=== PATIENT | female | born 1985 | race Caucasian/White ===

== ENCOUNTER 2019-12-03 12:37 | Observation (INO) | payer OTHER, SELFPAY ==
--- NOTE | ~2019-12-03 | CT_ITS ---
EXAMINATION: CT abdomen pelvis w con EXAM DATE: 12/03/2019 16:16 INDICATION: Diffuse abdominal pain. Elevated white blood cell count. TECHNIQUE: Spiral CT of the abdomen and pelvis was performed following intravenous injection of 100 m L Omnipaque 350. Axial, coronal and sagittal images were reviewed. The dose-length product (DLP) fo r this examination was 325.29 mGy-cm. The exposure was tailored according to patient size (auto mA e xposure control), and iterative reconstruction (ASIR) was used as additional dose reduction technique . Comparison is made to prior examination from 07/27/2019. FINDINGS: There is hepatic steatosis without suspicious focal lesion identified. Spleen, adrenal glan ds, pancreas are unremarkable. Gallbladder is unremarkable. No biliary obstruction. Portal and spl enic veins are patent. Kidneys enhance symmetrically. There is no hydronephrosis. The uterus is n ot identified and has likely been surgically resected. The bladder is unremarkable. There is no ret roperitoneal or pelvic lymphadenopathy. The appendix is normal. The stomach and small bowel are unremarkable. There is expected amount of c olonic stool. No free intraperitoneal gas. The heart is normal in size. There are no pericardial or pleural effusions. The lung bases are unremarkable. The bones are unremarkable. IMPRESSION: 1. No acute intra-abdominal findings. Reviewed, dictated and finalized at location A. AR INSTRUCTOR
--- NOTE | ~2019-12-03 | XR_ITS ---
EXAMINATION: XR chest 2V EXAM DATE: 12/03/2019 13:33 INDICATION: Weakness. TECHNIQUE: Frontal and lateral projections of the chest obtained and reviewed. Comparison is made to prior examination from 08/24/2019. FINDINGS: The lungs are clear. There are no pleural effusions. The cardiomediastinal silhouette is within normal limits. There is no pneumothorax suspected. The bones and soft tissues are unremarkab le. IMPRESSION: No acute cardiopulmonary findings. Reviewed, dictated and finalized at location A. CE MACHINE MECHANIC
[2019-12-03 12:50] VITALS: BP 118/89; PULSE 100; RESP 18; TEMP 36.7; O2SAT 97
[2019-12-03 12:53] LABS: Glucose Point of Care > 500 (65-105)
[2019-12-03 12:53] LABS: Glucose Point of Care > 500 (65-105)
--- NOTE | 2019-12-03 13:09 | ED.RECABL ---
HPI - Recheck/Abnormal Lab/Rx General Chief Complaint: Recheck/Abnormal Lab/Rx Stated Complaint: my sugar is high Time Seen by Provider: 12/03/19 12:47 Source: patient and RN notes reviewed Mode of arrival: ambulatory Limitations: no limitations History of Present Illness HPI narrative: Pt is a 34 y/o female presenting to the ED c/o high BS. Pt reports he BS this morning was over 600 after checking it 3 different times. Pt states she is a Type I Diabetic and uses an Insulin pump to which she believes is working appropriately. Pt states her BS was fine yesterday, and states she sees DINING HOST Sunni Barlow at [facility] for her Diabetes management. Pt reports N/V, diffuse ABD pain, and back pain, but denies diarrhea, fever, ST, cough, or congestion. Pt states she has a Hx of sleep walking and eating things while asleep and possibly attributes that to her Sx's. Pt notes she fractures her lt foot a few weeks ago. Pt notes she has a Hx of Hysterectomy due to Endometriosis and Fibroids. Description of abnormal result: BS over 600 Associated symptoms: nausea, abdominal pain (Diffuse) and other (Vomiting; back pain) Treatments prior to arrival: other (Insulin pump) Related Data Home Medications Medication Instructions Recorded Confirmed buspirone 30 mg PO TID 08/25/19 12/03/19 estradiol 2 mg PO DAILY 08/25/19 12/03/19 fluvoxamine 300 mg PO HS 08/25/19 12/03/19 hydroxyzine HCl 50 mg PO TID PRN 08/25/19 12/03/19 quetiapine 300 mg PO HS 08/25/19 12/03/19 ibuprofen 800 mg PO TID PRN 12/03/19 12/03/19 lidocaine [Lidoderm] 1 patch TRANSDERMAL DAILY 12/03/19 12/03/19 lorazepam [Ativan] 0.5 mg PO TID PRN 12/03/19 12/03/19 Allergies Allergy/AdvReac Type Severity Reaction Status Date / Time adhesive tape Allergy Mild Rash Verified 11/20/19 09:12 Review of Systems Review of Systems: All systems reviewed & are unremarkable except as noted in HPI and below Constitutional: Constitutional: Denies fever(s) ENT: Denies nasal congestion and Denies sore throat Respiratory: Respiratory: Denies cough Gastrointestinal: Gastrointestinal: Reports abdominal pain (Diffuse), Denies diarrhea, Reports nausea and Reports vomiting Musculoskeletal: Musculoskeletal: Reports back pain PMFSH Past Medical History Medical History (Updated 12/03/19 @ 22:15 by Roxanne Prasad MD) Anemia Sees Dr. 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 Fibromyalgia Gastroesophageal reflux disease IBS (irritable bowel syndrome) Insulin dependent diabetes mellitus Left foot drop MRSA (methicillin resistant staph aureus) culture positive OCD (obsessive compulsive disorder) Osteoporosis Peripheral neuropathy Retinopathy Substance abuse Marijuana use daily Toenail fungus Left great toenail removed in some removed around the right toe nail great toe and 5th 1 on right foot Surgical History Surgical History (Updated 12/03/19 @ 20:54 by Fabi Christensen NP) H/O hysterectomy with oophorectomy H/O tubal ligation History of carpal tunnel release Right hand with ganglion cyst removal. Family History Family History (Updated 12/03/19 @ 20:58 by Fabi Christensen NP) Mother Family history of chronic obstructive pulmonary disease Atrial tachycardia Father Acute myocardial infarction Grandparent Bone cancer Other Cerebrovascular accident Diabetes mellitus Family history of arthritis Family history of coronary artery disease Family history of malignant neoplasm Family history of malignant neoplasm of breast Social History Social History (Updated 12/03/19 @ 20:59 by Fabi Christensen NP) Smoking packs per day: 1 Smoking cigarettes per day: 20.0 Years smoked: 15 Smoking pack-years: 15.00 Smoking status: Current every day smoker Tobacco type: cigarettes Second hand tobacco smoke exposure: Yes Additional smoking assessment comments: She has smoked a pack a cigarettes a day for 25 years Alcohol in
[2019-12-03 13:12] LABS: Basophils Absolute Auto 0.1 K/mm3 (0.0-0.1); Basophils Percent Auto 0.6 % (0.2-1.2); Eosinophils Absolute Auto 0.1 K/mm3 (0-0.3); Eosinophils Percent Auto 0.4 % (0-4.4); Hematocrit 39.4 % (37.0-47.0); Hemoglobin 13.6 g/dL (12.0-15.0); Immature Granulocyte Absolute 0.05 K/mm3 (0.00-0.031); Immature Granulocyte Percent A 0.4 % (0-0.5); Lymphocytes Absolute Auto 1.06 K/mm3 (0.9-3.2); Lymphocytes Percent Auto 7.6 % (18.3-44.2); Mean Corpuscular HGB Conc 34.5 g/dl (32-36); Mean Corpuscular Hemoglobin 29.5 pg (26-34); Mean Corpuscular Volume 85.5 fl (80-100); Mean Platelet Volume 11.2 fl (7.4-10.4); Monocytes Absolute Auto 0.6 K/mm3 (0.1-0.6); Monocytes Percent Auto 4.4 % (2.6-8.5); Neutrophils Absolute Auto 12.1 K/mm3 (1.3-6.7); Neutrophils Percent Auto 86.6 % (45.5-73.1); Platelet Count Result 165 k/mm3 (150-375); Red Blood Count 4.61 M/mm3 (4.2-5.4); Red Cell Distribution Width 12.3 % (11.5-14.5)
[2019-12-03] MEDS: ONDANSETRON INJ 4 MG/2 ML VIAL IV PUSH (13:21)
[2019-12-03] MEDS: LACTATED RINGERS 1,000 ML 999 ML IV CONT (13:21)
[2019-12-03 13:26] LABS: Alanine Aminotransferase 20 U/L (4-35); Albumin Level 4.4 g/dL (3.5-5.1); Alkaline Phosphatase 155 U/L (38-126); Aspartate Amino Transferase 26 U/L (14-36); Bilirubin,Total 0.8 mg/dL (0.2-1.3); Blood Urea Nitrogen 21 mg/dL (7-17); Calcium 9.6 mg/dL (8.4-10.2); Carbon Dioxide 19 mmol/L (22-30); Chloride 86 mmol/L (98-107); Estimated CRCL calculation 69 ml/min; Estimated Glomerular Filt Rate > 60; Magnesium 1.8 mg/dL (1.6-2.3); Phosphorus 4.5 mg/dL (2.5-4.5); Potassium 4.3 mmol/L (3.4-5.0); Sodium 128 mmol/L (137-145)
[2019-12-03 13:27] LABS: Beta-Hydroxybutyrate/Acetoacetate 2.28 mmol/L (0.02-0.27); Lipase 36 U/L (23-300)
[2019-12-03 13:30] LABS: Glucose 713 mg/dL (65-105)
[2019-12-03 14:02] LABS: Add Urine Microscopic? YES; Appearance Urine Clear (Clear); Bilirubin Urine Negative (Negative); Blood Urine Negative (Negative); Budding Yeast Urine Present /hpf; Color Urine Straw (Yellow); Glucose Urine UA 3+ mg/dL (Negative); Ketones Urine 1+ mg/dL (Negative); Leukocyte Esterase Ur Negative LEU/UL (Negative); Nitrate Urine Negative (Negative); Protein Urine Negative (Negative); RBC Urine 0-2 /hpf (0-2); Specific Grav Ur 1.028 (1.001-1.035); Squamous Epithelial Cell Urine Moderate /hpf (Few); Urobilinogen Urine Negative mg/dL (<2.0); WBC Urine 0-3 /hpf
[2019-12-03 14:59] LABS: Alveolar/Arterial O2 Gradient 30.6 mmHg; Base Excess ABG -7.9 mEq/l (+/-2.0); Fractional Inspired Oxygen 21 %; HCO3 ABG 16.6 mEq/l (22.0-26.0); Oxygen Content ABG 17.2 %vol (16.0-22.0); Oxygen Saturation ABG 95.6 % (95.0-100.0); Oxyhemoglobin 91.2 % THb (90.0-100.0); PCO2 ABG 31.3 mmHg (35.0-45.0); PO2 ABG 81.7 mmHg (80.0-100.0); PO2 FiO2 Ratio Arterial Blood 3.89 %; Total Hemoglobin 13.4 g/dL (12.0-18.0); pH ABG 7.343 (7.350-7.450)
[2019-12-03 15:00] LABS: Device ROOM AIR; Modified Allen's Test Pass; Site Drawn RIGHT RADIAL
--- NOTE | 2019-12-03 15:00 | PC.NURSE ---
Pt disconnected and took off her own insulin pump
[2019-12-03 15:10] LABS: Hemoglobin A1C 12.4 % (<5.7)
[2019-12-03] MEDS: SODIUM CHLORIDE 0.9% IV 1,000 ML 150 ML IV CONT (15:10)
[2019-12-03] MEDS: INSULIN HUMAN REGULAR (*BKC) 100 UNITS/ML 7 UNITS IV PUSH (15:10)
[2019-12-03] MEDS: INSULIN HUMAN REGULAR (*BKC) 100 UNITS in SODIUM CHLORIDE 0.9% IV 99 ML 13 UNITS IV CONT (15:15)
[2019-12-03 15:41] LABS: Blood Urea Nitrogen 21 mg/dL (7-17); Calcium 9.5 mg/dL (8.4-10.2); Carbon Dioxide 20 mmol/L (22-30); Chloride 91 mmol/L (98-107); Estimated CRCL calculation 76 ml/min; Estimated Glomerular Filt Rate > 60; Potassium 4.7 mmol/L (3.4-5.0); Sodium 129 mmol/L (137-145)
[2019-12-03 15:43] LABS: Glucose 605 mg/dL (65-105)
[2019-12-03 16:30] VITALS: BP 112/71; PULSE 93; RESP 22; O2SAT 99
[2019-12-03 16:33] LABS: Glucose Point of Care 429 (65-105)
[2019-12-03 17:17] VITALS: BP 108/64; PULSE 94; RESP 20; O2SAT 97
[2019-12-03 17:19] LABS: Glucose Point of Care 276 (65-105)
[2019-12-03 18:02] LABS: Glucose Point of Care 232 (65-105)
--- NOTE | 2019-12-03 18:43 | PC.NURSE ---
This patient, Sole Grullon, was admitted to Intensive Care Unit-5. Patient/family oriented to hospital policies and general routines including ID bracelet, bed and alarms, visiting hours, pain management, procedures, bathroom and other care routines, personal items, smoking policy, room service/diet, and visiting hours. Valuables list has been completed. Information on how to activate the Rapid Response Team has been discussed. Patient/Family are encouraged to report perceived risks to care and to ask questions if they do not understand what they are told or what they should do.
[2019-12-03] MEDS: KCL 20 MEQ/D5/0.45% SOD CHL 1,000 ML 150 ML IV CONT (18:48)
[2019-12-03 18:53] VITALS: BMI 23.6
[2019-12-03 19:10] LABS: Glucose Point of Care 175 (65-105)
[2019-12-03 20:00] VITALS: BP 104/62; PULSE 88; RESP 16; TEMP 36.7; O2SAT 98
[2019-12-03 20:02] LABS: Blood Urea Nitrogen 20 mg/dL (7-17); Calcium 9.2 mg/dL (8.4-10.2); Carbon Dioxide 25 mmol/L (22-30); Chloride 96 mmol/L (98-107); Estimated CRCL calculation 96 ml/min; Estimated Glomerular Filt Rate > 60; Glucose 167 mg/dL (65-105); Potassium 3.7 mmol/L (3.4-5.0); Sodium 133 mmol/L (137-145)
[2019-12-03 20:07] LABS: Glucose Point of Care 164 (65-105)
[2019-12-03] MEDS: NICOTINE (*PBKC) 21 MG PATCH 1 PATCH TRANSDERM (20:21)
[2019-12-03] MEDS: KETOROLAC 15 MG/ML VIAL (*BKC) IV PUSH (20:22)
--- NOTE | 2019-12-03 20:43 | PM.IMHP ---
H&P: HPI History of Present Illness Chief complaint: DKA Narrative: Sole Grullon is a 34 year old female who presented to the ED today with complaints of an elevated blood glucose and nausea and vomiting since 0200 this am. Patient tried taking home PO Zofran with no resolution of her nausea and vomiting. She reports that her blood glucose has been elevated compared to her normal readings for approximately 3 months. She reports that her last HgA1C was 12. She reports that she is concerned that her insulin pump may be one of the pumps recalled and that maybe it hasn't been working correctly, but she has not had time to check to see if her pump has been recalled. She also reports that she is uncertain if her port site for this week was completely opened in regard to reasons her sugar is elevated at present. The patient's insulin pump is now off and she was started on insulin drip in the emergency room per DKA protocol. Her last admission was August of 2019 for DKA. She was diagnosed with diabetes at the age of 14. She sees an point of care specialist. Her anion gap was 23 upon arrival to the emergency room. Blood sugar was noted to be 713. It is down to 167. Patient is complaining of feeling hungry but also having some lower abdominal pain as well. However her blood pressure is too low to give her any narcotics at this time. Date of service 12/03/2019 Review of Systems Constitutional: Constitutional: Reports as per HPI and Reports body ache(s) Eyes: Eyes: Reports as per HPI and Reports blurry vision (She reports that she has retinopathy to her eyes, chronic) ENT: Reports Normal hearing present Cardiovascular: Cardiovascular: Reports chest pain (Reports this is not a new finding. Occurs with anxiety and vomiting.) Respiratory: Respiratory: Reports as per HPI and Reports no additional respiratory complaints Gastrointestinal: Gastrointestinal: Reports nausea and Reports vomiting Genitourinary: Genitourinary: Reports nocturia (Reports this is chronic related to her diabetes.) Musculoskeletal: Musculoskeletal: Reports muscle cramps (to right leg) Integumentary/Breasts: Skin/Breast: Reports as per HPI Neurologic: Reports as per HPI Psychiatric: Psychiatric: Reports anxiety and Reports depression Comments: Reports she also has obsessive compulsive disorder. Hematologic/Lymphatic: Hematologic/Lymphatic: Reports easy bleeding and Reports easy bruising Comments: Reports chronic anemia for which she sees park worker. Allergic/Immunologic: Allergic/Immunologic: Reports no additional allergic/immunologic complaints PMFSH Past Medical History Medical History (Updated 12/03/19 @ 21:23 by Fabi Christensen NP) Anemia Sees Dr. 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 Fibromyalgia Gastroesophageal reflux disease IBS (irritable bowel syndrome) Insulin dependent diabetes mellitus Left foot drop MRSA (methicillin resistant staph aureus) culture positive OCD (obsessive compulsive disorder) Osteoporosis Peripheral neuropathy Retinopathy Substance abuse Marijuana use daily Toenail fungus Left great toenail removed in some removed around the right toe nail great toe and 5th 1 on right foot Surgical History Surgical History (Updated 12/03/19 @ 20:54 by Fabi Christensen NP) H/O hysterectomy with oophorectomy H/O tubal ligation History of carpal tunnel release Right hand with ganglion cyst removal. Family History Family History (Updated 12/03/19 @ 20:58 by Fabi Christensen NP) Mother Family history of chronic obstructive pulmonary disease Atrial tachycardia Father Acute myocardial infarction Grandparent Bone cancer Other Cerebrovascular accident Diabetes mellitus Family history of arthritis Family history of coronary artery disease Family history of malignant neoplasm Family history of malignant neoplasm of breast Social History Social History
[2019-12-03 21:21] LABS: Glucose Point of Care 122 (65-105)
[2019-12-03 22:00] VITALS: BP 93/60; BP 93/64; PULSE 80; PULSE 82; RESP 14; RESP 16; O2SAT 100; O2SAT 98
[2019-12-03] MEDS: estradioL 1 MG TABLET 2 MG PO ×2 (22:19)
[2019-12-03] MEDS: LORAZEPAM 0.5 MG TABLET PO (22:20)
[2019-12-03] MEDS: QUEtiapine FUMARATE 100 MG TABLET 300 MG PO (22:20)
[2019-12-03] MEDS: INSULIN GLARGINE (*BKC) 100 UNITS/ML 10 UNITS SUB-Q (22:22)
[2019-12-03 22:29] LABS: Glucose Point of Care 103 (65-105)
[2019-12-03 23:35] LABS: Glucose Point of Care 147 (65-105)
[2019-12-04] VITALS (9 sets, daily range): BP systolic 86–124; BP diastolic 54–74; PULSE 66–95; RESP 14–19; TEMP 36.4–36.6; O2SAT 98–100
[2019-12-04 04:36] LABS: Basophils Absolute Auto 0.1 K/mm3 (0.0-0.1); Basophils Percent Auto 0.7 % (0.2-1.2); Eosinophils Absolute Auto 0.5 K/mm3 (0-0.3); Eosinophils Percent Auto 4.9 % (0-4.4); Hematocrit 36.2 % (37.0-47.0); Hemoglobin 12.4 g/dL (12.0-15.0); Immature Granulocyte Absolute 0.02 K/mm3 (0.00-0.031); Immature Granulocyte Percent A 0.2 % (0-0.5); Lymphocytes Percent Auto 27.8 % (18.3-44.2); Mean Corpuscular HGB Conc 34.3 g/dl (32-36); Mean Corpuscular Hemoglobin 29.2 pg (26-34); Mean Corpuscular Volume 85.2 fl (80-100); Mean Platelet Volume 10.1 fl (7.4-10.4); Monocytes Absolute Auto 0.7 K/mm3 (0.1-0.6); Monocytes Percent Auto 6.6 % (2.6-8.5); Neutrophils Absolute Auto 6.2 K/mm3 (1.3-6.7); Neutrophils Percent Auto 59.8 % (45.5-73.1); Platelet Count Result 167 k/mm3 (150-375); Red Blood Count 4.25 M/mm3 (4.2-5.4); Red Cell Distribution Width 12.2 % (11.5-14.5); White Blood Count 10.4 K/mm3 (4.5-10.0)
[2019-12-04 04:59] LABS: Blood Urea Nitrogen 18 mg/dL (7-17); Calcium 8.5 mg/dL (8.4-10.2); Carbon Dioxide 24 mmol/L (22-30); Chloride 100 mmol/L (98-107); Estimated CRCL calculation 85 ml/min; Estimated Glomerular Filt Rate > 60; Glucose 291 mg/dL (65-105); Potassium 4.3 mmol/L (3.4-5.0); Sodium 133 mmol/L (137-145)
[2019-12-04 05:03] LABS: Magnesium 1.8 mg/dL (1.6-2.3)
[2019-12-04 07:51] LABS: Hemoglobin A1C 12.2 % (<5.7)
[2019-12-04] MEDS: SODIUM CHLORIDE 0.9% IV 1,000 ML 999 ML IV CONT (08:06)
[2019-12-04 08:19] LABS: Glucose Point of Care 364 (65-105)
[2019-12-04] MEDS: INSULIN ASPART (*BKC) 100 UNITS/ML SUB-Q ×3 (08:26→17:26)
[2019-12-04] MEDS: INSULIN GLARGINE (*BKC) 100 UNITS/ML 10 UNITS SUB-Q (08:26)
[2019-12-04] MEDS: PANTOPRAZOLE SODIUM IV 40 MG VIAL IV PUSH (08:27)
[2019-12-04] MEDS: NICOTINE (*PBKC) 21 MG PATCH 1 PATCH TRANSDERM (08:27)
[2019-12-04] MEDS: busPIRone HCL 10 MG TABLET 30 MG PO ×3 (08:27→17:26)
[2019-12-04] MEDS: LIDOCAINE 5% PATCH 1 PATCH TRANSDERM (08:28)
--- NOTE | 2019-12-04 11:46 | PM.IMPN ---
Progress Note: A&P Assessment and Plan (1) Diabetes type 1, uncontrolled: Qualifiers: Glycemic state: with hyperglycemia Qualified Code(s): E10.65 - Type 1 diabetes mellitus with hyperglycemia Code(s): E10.65 - Type 1 diabetes mellitus with hyperglycemia Status: Acute Assessment and Plan: To medical floor on basal and bolus insulin pt to call her putty and caulking supervisor in [place], [place], re: insulin pump (2) DKA (diabetic ketoacidoses): Qualifiers: Diabetes mellitus complication detail: without coma Diabetes mellitus type: type 1 Qualified Code(s): E10.10 - Type 1 diabetes mellitus with ketoacidosis without coma Code(s): E11.10 - Type 2 diabetes mellitus with ketoacidosis without coma Status: Acute Assessment and Plan: resolved (3) Anemia: Qualifiers: Anemia type: iron deficiency Iron deficiency anemia type: unspecified iron deficiency Qualified Code(s): D50.9 - Iron deficiency anemia, unspecified Code(s): D64.9 - Anemia, unspecified Status: Chronic Assessment and Plan: continue per heme recommendations (4) OCD (obsessive compulsive disorder): Qualifiers: Obsessive-compulsive disorder type: unspecified Qualified Code(s): F42.9 - Obsessive-compulsive disorder, unspecified Code(s): F42.9 - Obsessive-compulsive disorder, unspecified Status: Chronic Assessment and Plan: Continue fluvoxamine as ordered. (5) Depression: Qualifiers: Depression Type: unspecified Qualified Code(s): F32.9 - Major depressive disorder, single episode, unspecified Code(s): F32.9 - Major depressive disorder, single episode, unspecified Status: Chronic Assessment and Plan: Continue with buspirone and quetiapine and ativan as ordered. (6) Fibromyalgia: Code(s): M79.7 - Fibromyalgia Status: Chronic Assessment and Plan: Continue with buspirone as ordered. (7) Retinopathy: Code(s): H35.00 - Unspecified background retinopathy Status: Chronic Assessment and Plan: Patient follows with ophth (8) Peripheral neuropathy: Qualifiers: Peripheral neuropathy type: polyneuropathy, unspecified Qualified Code(s): G62.9 - Polyneuropathy, unspecified Code(s): G62.9 - Polyneuropathy, unspecified Status: Chronic Assessment and Plan: recommended AFO to avoid injury Subjective Date/time seen: 12/04/19 11:46 Interval history: Admitted 12/03 with DKA and hx poor DM1 control. Insulin pump is on recall. Admits to somnambulation. Still smokes both cigarettes and marijuana. Minimal upper abdominal discomfort and back discomfort today. Review of Systems Review of Systems: All systems reviewed & are unremarkable except as noted in HPI and below Exam Narrative: Exam Narrative: HEENT: EOMI, PERRL, pharyngeal mucosa pink and intact NECK: No JVD CHEST: Clear to auscultation. Normal effort. HEART: NL S1/S2, regular, no murmur ABDOMEN: BS+, soft, nontender, no mass, no bruits EXTREMITIES: No cyanosis, edema, or clubbing NEUROLOGIC: CN intact and symmetric to inspection. MUSCULOSKELETAL: Tone and strength symmetric. LEFT FOOT DROP. PSYCH: Alert. Oriented to person, place, and time. Objective Data Vital Signs Vital Signs: Vital Signs - 24 hr 12/03/19 12:50 12/03/19 16:30 12/03/19 17:17 Temperature 98.0 F Pulse Rate 100 93 94 Respiratory Rate 18 22 H 20 Blood Pressure 118/89 112/71 108/64 Pulse Oximetry 97 99 97 12/03/19 20:00 12/03/19 22:00 12/04/19 00:00 Temperature 98.0 F 97.8 F Pulse Rate 88 80 86 Respiratory Rate 16 14 16 Blood Pressure 104/62 93/64 L 98/64 L Pulse Oximetry 98 100 98 12/04/19 02:00 12/04/19 04:00 12/04/19 06:00 Temperature 97.5 F L Pulse Rate 84 84 84 Respiratory Rate 16 18 18 Blood Pressure 98/69 L 103/67 86/54 L Pulse Oximetry 98 98 12/04/19 08:00 12/04/19 10:00 12/04/19 11:00 Tem
[2019-12-04 11:47] LABS: Glucose Point of Care 333 (65-105)
--- NOTE | 2019-12-04 12:48 | WPDCNINT ---
Assessment and Plan Assessment and plan (1) DKA (diabetic ketoacidoses): Qualifiers: Diabetes mellitus complication detail: without coma Diabetes mellitus type: type 1 Qualified Code(s): E10.10 - Type 1 diabetes mellitus with ketoacidosis without coma Code(s): E11.10 - Type 2 diabetes mellitus with ketoacidosis without coma Status: Acute Assessment and Plan: patient presented with nausea, vomiting, elevated blood sugars. she thinks her insulin pump was not functioning will as is been on recall. Patient was transition to long-acting insulin Lantus and sliding scale insulin with Accu-Cheks last night. Given additional dose of Lantus 10 units subcu x1 this morning. - will continue with Lantus and sliding scale insulin for now till she gets her insulin pump issues resolved (2) Diabetes type 1, uncontrolled: Qualifiers: Glycemic state: with hyperglycemia Qualified Code(s): E10.65 - Type 1 diabetes mellitus with hyperglycemia Code(s): E10.65 - Type 1 diabetes mellitus with hyperglycemia Status: Acute Assessment and Plan: hemoglobin A1c is 12.4 - patient sees an melter supervisor oxygen furnace Aquilino STARKS (3) Anemia: Qualifiers: Anemia type: iron deficiency Iron deficiency anemia type: unspecified iron deficiency Qualified Code(s): D50.9 - Iron deficiency anemia, unspecified Code(s): D64.9 - Anemia, unspecified Status: Chronic Assessment and Plan: follows up with Dr. Hurtado, continue his recommendation (4) OCD (obsessive compulsive disorder): Qualifiers: Obsessive-compulsive disorder type: unspecified Qualified Code(s): F42.9 - Obsessive-compulsive disorder, unspecified Code(s): F42.9 - Obsessive-compulsive disorder, unspecified Status: Chronic Assessment and Plan: continue fluvoxamine (5) Fibromyalgia: Code(s): M79.7 - Fibromyalgia Status: Chronic Assessment and Plan: continue Seroquel and buspirone Additional Plan discussed with patient in details and updated with her condition and plan of care. I did discuss with her regarding managing the diabetes in controlling her blood sugars better. I also explained to her the downside of uncontrolled diabetes. code status: Full code Critical care time spent: 38 minutes Due to a high probability of clinically significant, life threatening deterioration, the patient required my highest level of preparedness to intervene emergently and I personally spent this critical care time directly and personally managing the patient. This critical care time included obtaining a history; examining the patient; pulse oximetry; ordering and review of studies; arranging urgent treatment with development of a management plan; evaluation of patient's response to treatment; frequent reassessment; and discussions with other providers. It was exclusive of separately billable procedures and treating other patients and teaching time. Please see Assessment and Plan section and the rest of the note for further information on patient assessment and treatment Cupola Mechanic Consult Note Consult date: 12/04/19 Time Seen: 06:58 Reason for consult: Diabetic ketoacidosis nausea, vomiting HPI: Sole Grullon is a 34 year old female past medical history of diabetes type 1 on insulin pump, anxiety, depression, fibromyalgia, GERD, IBS, left footdrop, MRSA infection, obsessive-compulsive disorder, osteoporosis, peripheral neuropathy, retinopathy, marijuana use presented the ED on 12/03/2019 with complains of nausea, vomiting and elevated blood sugars. She feels that her insulin pump is not functioning well as it has been on recall and she has not had the time to fix that. Patient was given IV fluids, started on insulin infusion and transferred to the ICU for further management. Patient seen and examined the ICU this morning, I given additional IV fluid bolus. Patient only receive
[2019-12-04 17:30] LABS: Glucose Point of Care 287 (65-105)
[2019-12-04] MEDS: QUEtiapine FUMARATE 100 MG TABLET 300 MG PO (20:44)
[2019-12-04] MEDS: estradioL 1 MG TABLET 2 MG PO (20:46)
[2019-12-04] MEDS: INSULIN GLARGINE (*BKC) 100 UNITS/ML 25 UNITS SUB-Q (20:47)
[2019-12-04 20:52] LABS: Glucose Point of Care 293 (65-105)
[2019-12-05 05:00] VITALS: BP 124/68; PULSE 78; RESP 16; TEMP 36.8
[2019-12-05 08:00] VITALS: BP 111/79; PULSE 74; RESP 18; TEMP 36.4; O2SAT 98
[2019-12-05] MEDS: LIDOCAINE 5% PATCH 1 PATCH TRANSDERM (08:20)
[2019-12-05] MEDS: NICOTINE (*PBKC) 21 MG PATCH 1 PATCH TRANSDERM (08:21)
[2019-12-05] MEDS: busPIRone HCL 10 MG TABLET 30 MG PO (08:21)
[2019-12-05 08:26] LABS: Glucose Point of Care 141 (65-105)
--- NOTE | 2019-12-05 09:27 | PM.DS ---
DS: Diagnosis Admitting Diagnosis Admitting Diagnosis: Type 1 diabetes mellitus with hyperglycemia Discharge Diagnosis (1) Diabetes type 1, uncontrolled: Qualifiers: Glycemic state: with hyperglycemia Qualified Code(s): E10.65 - Type 1 diabetes mellitus with hyperglycemia Code(s): E10.65 - Type 1 diabetes mellitus with hyperglycemia Status: Acute Assessment and Plan: Resume insulin pump at home settings (2) DKA (diabetic ketoacidoses): Qualifiers: Diabetes mellitus complication detail: without coma Diabetes mellitus type: type 1 Qualified Code(s): E10.10 - Type 1 diabetes mellitus with ketoacidosis without coma Code(s): E11.10 - Type 2 diabetes mellitus with ketoacidosis without coma Status: Acute Assessment and Plan: resolved (3) Anemia: Qualifiers: Anemia type: iron deficiency Iron deficiency anemia type: unspecified iron deficiency Qualified Code(s): D50.9 - Iron deficiency anemia, unspecified Code(s): D64.9 - Anemia, unspecified Status: Chronic Assessment and Plan: continue per heme recommendations (4) OCD (obsessive compulsive disorder): Qualifiers: Obsessive-compulsive disorder type: unspecified Qualified Code(s): F42.9 - Obsessive-compulsive disorder, unspecified Code(s): F42.9 - Obsessive-compulsive disorder, unspecified Status: Chronic Assessment and Plan: Continue fluvoxamine as ordered. (5) Depression: Qualifiers: Depression Type: unspecified Qualified Code(s): F32.9 - Major depressive disorder, single episode, unspecified Code(s): F32.9 - Major depressive disorder, single episode, unspecified Status: Chronic Assessment and Plan: Continue with buspirone and quetiapine and ativan as ordered. (6) Fibromyalgia: Code(s): M79.7 - Fibromyalgia Status: Chronic Assessment and Plan: Continue with buspirone as ordered. (7) Retinopathy: Code(s): H35.00 - Unspecified background retinopathy Status: Chronic Assessment and Plan: Patient follows with ophth (8) Peripheral neuropathy: Qualifiers: Peripheral neuropathy type: polyneuropathy, unspecified Qualified Code(s): G62.9 - Polyneuropathy, unspecified Code(s): G62.9 - Polyneuropathy, unspecified Status: Chronic Assessment and Plan: recommended AFO to avoid injury DS: Summary Hospital Course Reason for hospitalization: Diabetic ketoacidosis Hospital Course: Presented with hyperglycemia upper abdominal discomfort nausea vomiting. Found to be in DKA. Treated with DKA protocol call including IV insulin and fluids for [place] labs. A1c was 12.4. Had been non compliant with blood sugar testing and diet. Issues with her pump. Comic Illustrator wished that she continue using her pump at home. Her blood sugar was 141 fasting on the day of discharge. She was switch from basal bolus back to her insulin pump at her home settings. She was discharged home to monitor sugars 3 to 4 times a day the record these and see her physician surgeon within 2 weeks and her primary physician within 1-2 weeks. Time Spent with Patient Time attestation: Total time spent providing and/or coordinating discharge services: Exam Narrative: Exam Narrative: HEENT: EOMI, PERRL, pharyngeal mucosa pink and intact NECK: No JVD CHEST: Clear to auscultation. Normal effort. HEART: NL S1/S2, regular, no murmur ABDOMEN: BS+, soft, nontender, no mass, no bruits EXTREMITIES: No cyanosis, edema, or clubbing NEUROLOGIC: CN intact and symmetric to inspection. MUSCULOSKELETAL: Tone and strength symmetric. LEFT FOOT DROP. PSYCH: Alert. Oriented to person, place, and time. DS: Data Data Completed and Pending Labs on day of discharge: Labs from last 24 hours 12/05/19 12/04/19 12/04/19 08:19 20:43 17:23 POC Capillary Glucose 141 H 293 H 287 H 12/04/19 11:45 POC
--- NOTE | 2019-12-05 12:00 | PCCDE ---
Consult received for diabetes education. Attempted to see today but pt discharged this am before consult completed. Pt was seen by this greeting card writer on 08/27/19-see [facility] for patient educator assessment. Pt has endo in [facility] and discharge summary indicates she was instructed to f/up with endo in 2 weeks.
== END 2019-12-05 11:10 | disposition home or self-care (01) ==
LOC: ANHED 12:49 → ANHICU 22:15
PROVIDERS: Family Medicine; Internal Medicine; Nurse Practitioner; Admitting Provider Family Medicine; Emergency Provider General Practice; PCP Family Medicine; Visit Provider Internal Medicine
DX: E10.10 Type 1 diabetes mellitus with ketoacidosis without coma (principal); E10.319 Type 1 diabetes mellitus with unspecified diabetic retinopathy without macular edema; E10.42 Type 1 diabetes mellitus with diabetic polyneuropathy; E10.51 Type 1 diabetes mellitus with diabetic peripheral angiopathy without gangrene; I70.209 Unspecified atherosclerosis of native arteries of extremities, unspecified extremity; D50.9 Iron deficiency anemia, unspecified; F42.9 Obsessive-compulsive disorder, unspecified; F32.9 Major depressive disorder, single episode, unspecified; F41.9 Anxiety disorder, unspecified; M79.7 Fibromyalgia; F17.210 Nicotine dependence, cigarettes, uncomplicated; F12.10 Cannabis abuse, uncomplicated; M81.0 Age-related osteoporosis without current pathological fracture; K21.9 Gastro-esophageal reflux disease without esophagitis; K58.9 Irritable bowel syndrome, unspecified; M21.372 Foot drop, left foot; Z79.4 Long term (current) use of insulin; Z96.41 Presence of insulin pump (external) (internal); Z79.899 Other long term (current) drug therapy; Z91.11 Patient's noncompliance with dietary regimen; Z91.19 Patient's noncompliance with other medical treatment and regimen
CPT/HCPCS: 36415; 36600; 71046; 74177; 80048; 80053; 81001; 82010; 82805; 82948; 83036; 83690; 83735; 84100; 85025; 96361; 96365; 96366; 96374; 96375; 99291; A9270; C9113; G0378; G0379; J0131; J1815; J1885; J2405; J3480; J7030; J7120; Q9967

== ENCOUNTER 2020-04-15 16:01 | Emergency (ER) | payer OTHER, SELFPAY ==
[2020-04-15 16:16] VITALS: BP 117/75; PULSE 84; RESP 18; TEMP 36.4; O2SAT 100
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
[2020-04-15 17:31] VITALS: BP 120/80; PULSE 80; RESP 20; TEMP 36.7; O2SAT 96
== END 2020-04-15 17:33 | disposition home or self-care (01) ==
PROVIDERS: Emergency Provider General Practice; PCP Family Medicine
DX: S05.12XA Contusion of eyeball and orbital tissues, left eye, initial encounter (principal); F17.210 Nicotine dependence, cigarettes, uncomplicated; D64.9 Anemia, unspecified; F41.9 Anxiety disorder, unspecified; F32.9 Major depressive disorder, single episode, unspecified; M79.7 Fibromyalgia; K21.9 Gastro-esophageal reflux disease without esophagitis; Z79.4 Long term (current) use of insulin; E11.42 Type 2 diabetes mellitus with diabetic polyneuropathy; W20.8XXA Other cause of strike by thrown, projected or falling object, initial encounter
CPT/HCPCS: 99282; A9270

== ENCOUNTER 2020-06-23 08:45 | Emergency (ER) | payer OTHER, SELFPAY ==
--- NOTE | ~2020-06-23 | US_ITS ---
EXAMINATION: US venous doppler UE RT DATE: 06/23/2020 11:32 INDICATION: Right arm pain, recent IV TECHNIQUE: Grayscale ultrasound images without and with compression and Doppler ultrasound images of the right upper extremity veins were obtained. COMPARISON: None. FINDINGS: The right internal jugular vein, subclavian vein, axillary vein, brachial veins, basilic vein, cephal ic vein, radial vein, and ulnar vein are patent. Thrombosis is noted in a superficial vein of the rig ht anterior wrist at the site of a prior IV. IMPRESSION: 1. Superficial venous thrombosis of the right wrist at the site of prior IV. No deep venous thrombosi s. Reviewed, dictated and finalized at location A. IMPRESSION: 1. Superficial venous thrombosis of the right wrist at the site of prior IV. No deep venous thrombosis.
[2020-06-23 08:59] VITALS: BP 106/77; PULSE 93; RESP 12; TEMP 36.3; O2SAT 99
--- NOTE | 2020-06-23 09:05 | ED.UPPEXIN ---
HPI - Extremity Injury (Upper) General Chief Complaint: Extremity Injury, Upper Stated Complaint: Possible blood clot - R arm Time Seen by Provider: 06/23/20 09:05 Source: patient Mode of arrival: wheelchair Limitations: no limitations History of Present Illness HPI narrative: Patient is a 35-year-old female with a history of recent left ankle/foot surgery at [facility] who presents for evaluation of right upper extremity pain. Patient states she has noticed a small area of swelling on the outside aspect of her right wrist which is painful to touch. It is mildly swollen. It is not red. She states the pain tracks up into her elbow. No fall or injury. Patient states that this is the site that her IV was at while she had surgery. Patient is denying any chest pain or shortness of breath. She states she has a history of superficial thrombophlebitis but wanted to make sure she did not have a blood clot. Patient denies any other pain at this time. Related Data Home Medications Medication Instructions Recorded Confirmed buspirone 30 mg PO TID 08/25/19 02/28/20 fluvoxamine 300 mg PO HS 08/25/19 02/28/20 quetiapine 300 mg PO HS 08/25/19 02/28/20 lorazepam [Ativan] 0.5 mg PO TID PRN 12/03/19 02/28/20 insulin lispro [Admelog U-100 06/23/20 Insulin lispro] Allergies Allergy/AdvReac Type Severity Reaction Status Date / Time adhesive tape Allergy Mild Rash Verified 04/15/20 16:26 Review of Systems Review of Systems: Narrative: CONSTITUTIONAL: Denies fever CARDIOVASCULAR: Denies chest pain RESPIRATORY: Denies cough or dyspnea. GASTROINTESTINAL: Denies abdominal pain SKIN: Denies rash MUSCULOSKELETAL: Denies back pain NEUROLOGIC: Denies headache [facility] Past Medical History Medical History Anemia Sees Dr. 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 Social History Social History Smoking packs per day: 1 Smoking cigarettes per day: 20.0 Years smoked: 15 Smoking pack-years: 15.00 Smoking status: Current every day smoker Tobacco type: cigarettes Second hand tobacco smoke exposure: Yes Additional smoking assessment comments: She has smoked a pack a cigarettes a day for 25 years Alcohol intake: current Drinks per week: 0 Substance use: current Substance use type: marijuana Other substance usage details: Uses marijuana every day. Additional living arrangements comments: With her . She has 2 children. Patient reports that she does not have a power of document review attorney. 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 EYES: PERRLA and EOMI. ENT: Nares clear, no rhinorrhea or epistaxis. Mucous membranes moist. NECK: Supple. CHEST: No respiratory distress, breathing even and non labored HEART: Regular rate, sinus rhythm ABDOMEN:Non distended, non tender EXTREMITIES: Hard cast left lower extremity. Lateral aspect of right upper extremity is tender to palpa
[2020-06-23] MEDS: oxyCODONE/ACETAMINOPHEN 5-325 MG TABLET 1 TABLET PO (09:59)
[2020-06-23 10:32] VITALS: BP 105/70; PULSE 70; RESP 12; O2SAT 99
[2020-06-23 12:30] VITALS: BP 109/81; PULSE 77; RESP 12; O2SAT 99
== END 2020-06-23 12:31 | disposition home or self-care (01) ==
PROVIDERS: Emergency Provider Emergency Medicine; PCP Family Medicine
DX: I82.611 Acute embolism and thrombosis of superficial veins of right upper extremity (principal); D64.9 Anemia, unspecified; F41.9 Anxiety disorder, unspecified; F32.9 Major depressive disorder, single episode, unspecified; E10.9 Type 1 diabetes mellitus without complications; M79.7 Fibromyalgia; K21.9 Gastro-esophageal reflux disease without esophagitis; Z79.4 Long term (current) use of insulin; M21.372 Foot drop, left foot
CPT/HCPCS: 93971; 99284; A9270

== ENCOUNTER 2020-07-02 09:44 | Outpatient (CLI) | payer OTHER, SELFPAY ==
--- NOTE | 2020-07-02 10:45 | NEURO_ITS ---
Patient Number: [id number] Impression: # Complains of numbness of right hand. # Right Carpal Tunnel Syndrome. # Mild right ulnar neuropathy across the elbow. # Normal needle/EMG exam. # Clinical correlation recommended. Nerve Conduction Studies Anti Sensory Summary Table Stim Site NR Peak (ms) P-T Amp (?V) Site1 Site2 Delta-P (ms) Dist (cm) Tom (m/s) Right Median Anti Sensory (2-3nd Digit) Wrist 4.9 16.4 Wrist 2-3nd Digit 4.9 14.0 29 Wrist 5.2 15.3 Wrist 2-3nd Digit 4.9 14.0 29 Right Radial Anti Sensory (Base 1st Digit) Wrist 2.5 29.5 Wrist Base 1st Digit 2.5 0.0 Right Ulnar Anti Sensory (5th Digit) Wrist 2.9 32.7 Wrist 5th Digit 2.9 14.0 48 Motor Summary Table Stim Site NR Onset (ms) O-P Amp (mV) Site1 Site2 Delta-0 (ms) Dist (cm) Tom (m/s) Right Median Motor (Abd Poll Brev) Wrist 4.4 3.6 Elbow Wrist 5.2 28.0 54 Elbow 9.6 3.8 Right Ulnar Motor (Abd Dig Minimi) Wrist 3.0 4.8 A Elbow Wrist 5.6 28.0 50 A Elbow 8.6 4.2 B Elbow Wrist 3.8 21.0 55 B Elbow 6.8 3.4 F Wave Studies NR F-Lat (ms) L-R F-Lat (ms) Right Median (Mrkrs) (Abd Poll Brev) 30.51 Right Ulnar (Mrkrs) (Abd Dig Min) 29.83 EMG Side Muscle Nerve Root Ins Act Fibs Amp Dur Recrt Comment Right 1stDorInt Ulnar C8-T1 Nml Nml Nml Nml Nml Right Ext Indicis Radial (Post Int) C7-8 Nml Nml Nml Nml Nml Right Ext Digitorum Radial (Post Int) C7-8 Nml Nml Nml Nml Nml Right BrachioRad Radial C5-6 Nml Nml Nml Nml Nml Right PronatorTeres Median C6-7 Nml Nml Nml Nml Nml Right Abd Poll Brev Median C8-T1 Nml Nml Nml Nml Nml Right ABD Dig Min Ulnar C8-T1 Nml Nml Nml Nml Nml MTDD
== END 2020-07-02 09:45 | disposition home or self-care (01) ==
LOC: ANHNEURO 09:45
PROVIDERS: PCP Family Medicine; Visit Provider Plastic Surgery
DX: G56.01 Carpal tunnel syndrome, right upper limb (principal); G56.21 Lesion of ulnar nerve, right upper limb
CPT/HCPCS: 95886; 95909

== ENCOUNTER 2020-07-21 13:27 | Outpatient (CLI) | payer OTHER, SELFPAY ==
--- NOTE | 2020-07-21 13:32 | ECG_ITS ---
Measurements Intervals [place] Rate: 84 P: 52 CO: 165 QRS: 18 QRSD: 88 T: 31 QT: 357 QTc: 422 Interpretive Statements SINUS RHYTHM NONSPECIFIC T-WAVE ABNORMALITY- ANTERIOR LEADS BASELINE ARTIFACT- I, III, AVL, AVF BORDERLINE ECG Electronically Signed On 07-21-2020 13:50:47 CDT by Bharath Patterson D.O.
== END 2020-07-21 13:28 | disposition home or self-care (01) ==
LOC: ANHSURGERY 13:32
PROVIDERS: PCP Family Medicine; Visit Provider Plastic Surgery
DX: R93.41 Abnormal radiologic findings on diagnostic imaging of renal pelvis, ureter, or bladder (principal); E11.9 Type 2 diabetes mellitus without complications; Z79.4 Long term (current) use of insulin
CPT/HCPCS: 93005

== ENCOUNTER 2020-07-22 03:06 | Outpatient (CLI) | payer OTHER, SELFPAY ==
[2020-07-22 18:16] LABS: SARS-CoV-2 RNA PCR Negative
== END 2020-07-22 03:07 | disposition home or self-care (01) ==
LOC: ANHCOVIDDT 03:06
PROVIDERS: PCP Family Medicine; Visit Provider Plastic Surgery
DX: Z01.812 Encounter for preprocedural laboratory examination (principal); Z20.828 Contact with and (suspected) exposure to other viral communicable diseases
CPT/HCPCS: 87635; C9803; U0003

== ENCOUNTER 2020-07-24 00:26 | Day surgery (SDC) | payer OTHER, SELFPAY ==
[2020-07-18 12:58] VITALS: BMI 23.5
--- NOTE | 2020-07-23 14:19 | WPDANESEPPF ---
Anes - Initial Pre Proc Eval Procedure: Operation Date: 07/24/20 09:00 Proposed Procedures p Right Ulnar Neuroplasty At The Elbow - Basim Boogie MD Date/Time: 07/23/20 14:19 Surgeon: Basim Boogie MD Pre Op Diagnosis: Right Cubital Tunnel Syndrome Patient Data Age: 35 Gender: F Height: 1.7 m Weight: 68.05 kg Allergies Allergy/AdvReac Type Severity Reaction Status Date / Time adhesive tape Allergy Mild Rash Verified 07/24/20 07:01 Home Medications Medication Instructions Recorded Confirmed Type buspirone 30 mg PO BID 08/25/19 07/24/20 History fluvoxamine 300 mg PO HS 08/25/19 07/24/20 History quetiapine 300 mg PO HS 08/25/19 07/24/20 History lorazepam [Ativan] 10 mg PO TID PRN 12/03/19 07/24/20 History aspirin 325 mg PO DAILY 30 Days #30 tablet 06/23/20 07/24/20 Rx insulin lispro [Admelog U-100 06/23/20 History Insulin lispro] oxycodone-acetaminophen 1 tablet PO Q6H PRN #14 tablet 06/23/20 07/24/20 Rx cholecalciferol (vitamin D3) 125 mcg PO DAILY 07/18/20 07/18/20 History Patient hx anesthesia problems: none Family hx anesthesia problems: none PMFSH Past Medical History Medical History (Updated 06/27/20 @ 11:23 by Yesika Al, [facility]) Anemia Sees Dr. 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 Family History Family History Mother Family history of chronic obstructive pulmonary disease Atrial tachycardia Father Acute myocardial infarction Grandparent Bone cancer Other Cerebrovascular accident Diabetes mellitus Family history of arthritis Family history of coronary artery disease Family history of malignant neoplasm Family history of malignant neoplasm of breast Social History Social History Smoking packs per day: 1 Smoking cigarettes per day: 20.0 Years smoked: 20 Smoking pack-years: 20.00 Smoking status: Current every day smoker Tobacco type: cigarettes Second hand tobacco smoke exposure: Yes Additional smoking assessment comments: She has smoked a pack a cigarettes a day for 25 years Alcohol intake: current Drinks per week: 0 Substance use: current Substance use type: marijuana Other substance usage details: Uses marijuana every day. Living arrangements: with family Additional living arrangements comments: With her . She has 2 children. Patient reports that she does not have a power of tax attorney. 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 Gender identity (if verbalized by the patient): Female Spiritual care concerns: No Agree to blood products: Yes Anes - Eval Final PreProcedure Day of Procedure 07/23/20 14:19 Patient weight: normal Heart: regular rate and rhythm Lungs: clear to auscultation and normal air movement Airway: Mallampati scale class II Neurological: alert and oriented Last oral intake: >/= 8 hours ASA classification: III Emergent: no Anesthetic plan: proceed Anesthesia type and monitoring: general GIVS and standard monitoring Informed Consent: The patient's anesthetic plan and its attendant risks and benefits were discussed with the patient/family/POA. Questions were solicited and answ
[2020-07-24 07:11] LABS: Glucose Point of Care 262 (65-105)
--- NOTE | 2020-07-24 07:11 | WPDHPUPDATE1 ---
History and Physical Update Update Date/Time: 07/24/20 07:11 History and Physical has been reviewed, including an updated exam of the patient. There are NO changes in the patient's condition. Risks, benefits, and alternatives have been discussed and questions answered. Patient agrees to proceed with procedure.
[2020-07-24] MEDS: LACTATED RINGERS 1,000 ML 30 ML IV CONT (07:25)
[2020-07-24 07:29] VITALS: BP 116/73; PULSE 96; RESP 16; TEMP 37.1; O2SAT 100
[2020-07-24] MEDS: LIDO 1%/EPINEPHRINE 1:100,000 20 ML VIAL 5 ML INFILTRATE (09:26)
[2020-07-24] MEDS: BACITRACIN OINTMENT 15 GM TUBE 1 APPLIC TOPICAL (09:27)
[2020-07-24 09:48] VITALS: BP 87/57; PULSE 71; RESP 16; O2SAT 100
[2020-07-24 09:59] LABS: Glucose Point of Care 99 (65-105)
--- NOTE | 2020-07-24 10:06 | PM.OP ---
Procedure Note - Brief Procedure Note - Brief Date of procedure: 07/24/20 Pre-op diagnosis: Right Cubital Tunnel Syndrome Post-op diagnosis: same Procedure performed: R ulnar neuroplasty at elbow. Anesthesia: GLMA Surgeon: Basim Boogie MD Estimated blood loss (mL): 1 Tourniquet time (min): 10 Drains: No Packing: No Pathology: none sent Complications: No immediate complications Condition: stable Disposition: PACU
--- NOTE | 2020-07-24 10:08 | P.OP_ITS ---
Procedure Note - Detailed Date of procedure: 07/24/20 Pre-op diagnosis: Right Cubital Tunnel Syndrome Post-op diagnosis: same Procedure performed: Right ulnar neuroplasty at the elbow Description of procedure: The right elbow was marked as the patient waited in the holding quintero. She was then taken to the operating room and placed supine on the operating table. A time-out was held and confirmed. She was given IV sedation and the extremity prepped and draped in usual fashion. The site was marked for the incision and locally infiltrated with 1% lidocaine with epinephrine. The tourniquet was inflated to 250 mmHg. The incision was made as marked and the dissection was carried carefully to the medial epicondyle. The the ulnar nerve was seen to lie between that and the triceps muscle. There was also noted to be an anconeus epitrochlearis muscle overlying this nerve. The nerve was dissected along this course. The anconeus was divided the Talamantes ligament appeared to be minimal in this case. Proximally and distally there humberto eared to be no points of compression. The tourniquet was released and bleeding points were electrocoagulated. The nerve did not sublux. The wound was closed with intradermal 3-0 Monocryl suture at cross hatching machado and 3-0 Monocryl intradermal suture to close the skin. The usual bandage is applied. Was patient already has oxycodone at home prescribed yesterday by another physician. She is discharged with instructions in wound care and follow-up Anesthesia: GLMA and MAC Surgeon: Basim Boogie MD Estimated blood loss (mL): 2 Tourniquet time (min): 10 Drains: No Packing: No Pathology: none sent Complications: No immediate complications Condition: stable Disposition: same day
[2020-07-24 10:15] VITALS: BP 86/59; PULSE 72; O2SAT 95
[2020-07-24] MEDS: fentaNYL CITRATE INJ (*CRX) 100 MCG/2 ML VIAL 25 MCG IV PUSH (10:19)
--- NOTE | 2020-07-24 10:36 | SUR.PHASEII ---
BG 99 in Outpatient about 1000.
[2020-07-24 10:45] VITALS: BP 91/71; PULSE 74
[2020-07-24] MEDS: oxyCODONE HCL (*CRX) 5 MG TAB IR PO (10:52)
[2020-07-24 11:15] VITALS: BP 108/73; PULSE 70
== END 2020-07-24 11:20 | disposition home or self-care (01) ==
PROVIDERS: PCP Family Medicine; Visit Provider Plastic Surgery
PROC: (CPT 64718; principal; 2020-07-24 09:00)
DX: G56.21 Lesion of ulnar nerve, right upper limb (principal); E10.51 Type 1 diabetes mellitus with diabetic peripheral angiopathy without gangrene; E10.42 Type 1 diabetes mellitus with diabetic polyneuropathy; D64.9 Anemia, unspecified; M79.7 Fibromyalgia; K21.9 Gastro-esophageal reflux disease without esophagitis; K58.9 Irritable bowel syndrome, unspecified; M81.0 Age-related osteoporosis without current pathological fracture; E10.319 Type 1 diabetes mellitus with unspecified diabetic retinopathy without macular edema; F12.90 Cannabis use, unspecified, uncomplicated; F17.210 Nicotine dependence, cigarettes, uncomplicated; F42.8 Other obsessive-compulsive disorder; Z79.4 Long term (current) use of insulin; Z79.82 Long term (current) use of aspirin; Z86.14 Personal history of Methicillin resistant Staphylococcus aureus infection
CPT/HCPCS: 64718; A9270; J2250; J2405; J2704; J3010; J7120

== ENCOUNTER 2020-08-08 08:19 | Emergency (ER) | payer OTHER, SELFPAY ==
[2020-08-08] VITALS (18 sets, daily range): BP systolic 100–114; BP diastolic 66–89; PULSE 78–119; RESP 13–27; TEMP 36.7–37.2; O2SAT 98–100
--- NOTE | ~2020-08-08 | CT_ITS ---
EXAMINATION: CTA chest PE protocol DATE: 08/08/2020 09:23 INDICATION: Chest pain and shortness of breath TECHNIQUE: Computed tomography (CT) pulmonary angiogram of the chest was performed with 100 mL Omnipa que-350 intravenous contrast. Additional 3D reconstructions utilizing coronal maximum intensity proje ction (MIP) were performed. Automated exposure control and iterative reconstruction technique were em ployed. The dose-length product was 197.87 mGy-cm. COMPARISON: None FINDINGS: Excellent contrast opacification of the pulmonary arteries. There is mild streak artifact from dense contrast in the superior vena cava and right atrium. No significant motion artifact yielding diagnost ic quality study which demonstrates no pulmonary embolism. Mild emphysema at the apices. 6 mm right l ower lobe nodule. No pneumonia, pulmonary edema, pleural effusion or pneumothorax. Heart size is norm al. No pericardial effusion. Normal aorta with no dissection. No pathologically enlarged thoracic lym phadenopathy. Mild thoracic spondylosis. IMPRESSION: 1. No pulmonary embolism or other acute cardiopulmonary disease. 2. 6 mm indeterminate right lower lobe nodule which given the mild emphysema at the apices consider o ptional 12 month follow-up low-dose noncontrast chest CT. Reviewed, dictated and finalized at location A. IMPRESSION: 1. No pulmonary embolism or other acute cardiopulmonary disease. 2. 6 mm indeterminate right lower lobe nodule which given the mild emphysema at the apices consider optional 12 month follow-up low-dose noncontrast chest CT.
--- NOTE | 2020-08-08 08:29 | ECG_ITS ---
Measurements Intervals [place] Rate: 118 P: 66 SD: 145 QRS: 17 QRSD: 89 T: 58 QT: 340 QTc: 477 Interpretive Statements SINUS TACHYCARDIA POSSIBLE LEFT ATRIAL ENLARGEMENT BORDERLINE ST-T WAVE ABNORMALITY- DIFFUSE LEADS BASELINE ARTIFACT- I, III, V3 ABNORMAL ECG Electronically Signed On 08-08-2020 12:14:52 CDT by Bharath Patterson D.O.
[2020-08-08 08:38] LABS: Glucose Point of Care 351 (65-105)
[2020-08-08] MEDS: SODIUM CHLORIDE 0.9% IV 1,000 ML 999 ML IV CONT ×2 (08:45→09:36)
[2020-08-08] MEDS: MORPHINE SULFATE (*CRX) 4 MG/ML INJ IV PUSH (08:46)
[2020-08-08] MEDS: INSULIN HUMAN REGULAR (*BKC) 100 UNITS/ML 7 UNITS IV PUSH (08:47)
[2020-08-08 08:54] LABS: Basophils Absolute Auto 0.1 K/mm3 (0.0-0.1); Basophils Percent Auto 0.6 % (0.2-1.2); Eosinophils Absolute Auto 0.5 K/mm3 (0-0.3); Eosinophils Percent Auto 4.4 % (0-4.4); Hematocrit 41.5 % (37.0-47.0); Hemoglobin 14.6 g/dL (12.0-15.0); Immature Granulocyte Absolute 0.03 K/mm3 (0.00-0.031); Immature Granulocyte Percent A 0.3 % (0-0.5); Lymphocytes Absolute Auto 0.99 K/mm3 (0.9-3.2); Lymphocytes Percent Auto 9.3 % (18.3-44.2); Mean Corpuscular HGB Conc 35.2 g/dl (32-36); Mean Corpuscular Hemoglobin 30.5 pg (26-34); Mean Corpuscular Volume 86.8 fl (80-100); Mean Platelet Volume 10.4 fl (7.4-10.4); Monocytes Absolute Auto 0.6 K/mm3 (0.1-0.6); Monocytes Percent Auto 5.2 % (2.6-8.5); Neutrophils Absolute Auto 8.6 K/mm3 (1.3-6.7); Neutrophils Percent Auto 80.2 % (45.5-73.1); Platelet Count Result 243 k/mm3 (150-375); Red Blood Count 4.78 M/mm3 (4.2-5.4); Red Cell Distribution Width 11.8 % (11.5-14.5); White Blood Count 10.7 K/mm3 (4.5-10.0)
[2020-08-08 08:57] LABS: Alveolar/Arterial O2 Gradient 24.9 mmHg; Base Excess ABG 1.4 mEq/l (+/-2.0); Carboxyhemoglobin 4.6 % THb (0-2.0); Fractional Inspired Oxygen 21 %; HCO3 ABG 23.4 mEq/l (22.0-26.0); Oxygen Content ABG 18.7 %vol (16.0-22.0); Oxygen Saturation ABG 97.6 % (95.0-100.0); Oxyhemoglobin 92.6 % THb (90.0-100.0); PCO2 ABG 29.6 mmHg (35.0-45.0); PO2 ABG 89.4 mmHg (80.0-100.0); PO2 FiO2 Ratio Arterial Blood 4.26 %; Reduced Hemoglobin 2.8 %THb (0-5.0); Total Hemoglobin 14.3 g/dL (12.0-18.0)
[2020-08-08 08:58] LABS: Add Urine Microscopic? YES; Appearance Urine Clear (Clear); Bilirubin Urine Negative (Negative); Blood Urine Negative (Negative); Color Urine Yellow (Yellow); Glucose Urine UA 3+ mg/dL (Negative); Ketones Urine Negative (Negative); Leukocyte Esterase Ur Trace LEU/UL (Negative); Nitrate Urine Negative (Negative); Protein Urine Negative (Negative); Squamous Epithelial Cell Urine Many /hpf (Few); Urobilinogen Urine Negative mg/dL (<2.0); WBC Urine 0-3 /hpf
[2020-08-08 08:59] LABS: Device ROOM AIR; Modified Allen's Test Pass; Site Drawn RIGHT RADIAL; pH ABG 7.515 (7.350-7.450)
[2020-08-08 09:04] LABS: Specific Grav Ur 1.032 (1.001-1.035)
[2020-08-08 09:09] LABS: Alanine Aminotransferase 24 U/L (4-35); Albumin Level 4.8 g/dL (3.5-5.1); Alkaline Phosphatase 246 U/L (38-126); Anion Gap 11 mmol/L (8-16); Aspartate Amino Transferase 30 U/L (14-36); Bilirubin,Total 0.8 mg/dL (0.2-1.3); Blood Urea Nitrogen 18 mg/dL (7-17); Calcium 10.2 mg/dL (8.4-10.2); Carbon Dioxide 27 mmol/L (22-30); Chloride 101 mmol/L (98-107); Estimated Glomerular Filt Rate > 60; Glucose 309 mg/dL (65-105); Magnesium 2.1 mg/dL (1.6-2.3); Phosphorus 2.6 mg/dL (2.5-4.5); Potassium 3.8 mmol/L (3.4-5.0); Sodium 139 mmol/L (137-145)
[2020-08-08 09:17] LABS: Troponin I < 0.012 ng/mL (0.000-0.034)
--- NOTE | 2020-08-08 09:42 | ED.CHESTPAIN ---
HPI - Chest Pain General Chief Complaint: Chest Pain Stated Complaint: CP, high blood sugar Time Seen by Provider: 08/08/20 08:28 History of Present Illness HPI narrative: Patient is a 35-year-old female who presents to the ER with chest pain back pain upon waking up today. Sharp and radiating to the back. Patient reports she had a Reclast injection yesterday is unsure if it is related. She also reports her blood sugars over 500. She reports she uses a insulin pump. She has no nausea/vomiting/sweats. She is mildly short of breath. No runny nose/sore throat/productive cough. No history of previous PE. Patient had a left foot surgery 2 months ago and has had persistent edema there. She has chronic foot drop on the left side with atrophy of the calf. Pain is worse with deep breath. Related Data Home Medications Medication Instructions Recorded Confirmed buspirone 30 mg PO BID 08/25/19 08/07/20 fluvoxamine 300 mg PO HS 08/25/19 08/07/20 quetiapine 300 mg PO HS 08/25/19 08/07/20 lorazepam [Ativan] 10 mg PO TID PRN 12/03/19 08/07/20 insulin lispro [Admelog U-100 See Rx Instructions .ROUTE .COMPLEX 06/23/20 08/07/20 Insulin lispro] cholecalciferol (vitamin D3) 125 mcg PO DAILY 07/18/20 08/07/20 Vitamin B-12 1 tablet PO DAILY 08/06/20 08/07/20 meloxicam 15 mg PO DAILY 08/06/20 08/07/20 Allergies Allergy/AdvReac Type Severity Reaction Status Date / Time adhesive tape Allergy Mild Rash Verified 08/07/20 11:22 Review of Systems Review of Systems: All systems reviewed & are unremarkable except as noted in HPI and below Constitutional: Constitutional: Denies chills, Denies fever(s) and Denies weakness ENT: Denies nasal congestion and Denies sore throat Cardiovascular: Cardiovascular: Reports chest pain, Denies rapid heart rate and Reports radiating jaw, neck or arm pain (Radiates to back) Respiratory: Respiratory: Denies cough, Reports dyspnea and Denies wheezing Gastrointestinal: Gastrointestinal: Denies abdominal pain, Denies nausea and Denies vomiting Musculoskeletal: Comments: Left foot swelling PMFSH Past Medical History Medical History (Updated 08/08/20 @ 12:33 by Ryan Long MD) Anemia Sees Dr. 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 Fibromyalgia Gastroesophageal reflux disease IBS (irritable bowel syndrome) Insulin dependent diabetes mellitus Left foot drop MRSA (methicillin resistant staph aureus) culture positive OCD (obsessive compulsive disorder) Osteoporosis Peripheral neuropathy Retinopathy Substance abuse Marijuana use daily Toenail fungus Left great toenail removed in some removed around the right toe nail great toe and 5th 1 on right foot Surgical History Surgical History (Updated 08/08/20 @ 09:45 by Ryan Long MD) H/O hysterectomy with oophorectomy H/O tubal ligation History of carpal tunnel release Right hand with ganglion cyst removal. S/P foot surgery, left Family History Family History Mother Family history of chronic obstructive pulmonary disease Atrial tachycardia Father Acute myocardial infarction Grandparent Bone cancer Other Cerebrovascular accident Diabetes mellitus Family history of arthritis Family history of coronary artery disease Family history of malignant neoplasm Family history of malignant neoplasm of breast Social History Social History Smoking packs per day: 1 Smoking cigarettes per day: 20.0 Years smoked: 20 Smoking pack-years: 20.00 Smoking status: Current every day smoker Tobacco type: cigarettes Second hand tobacco smoke exposure: Yes Additional smoking assessment comments: She has smoked a pack a cigarettes a day for 25 years Alcohol intake: current Drinks per week: 0 Substance use: current Substance use type: marijuana Other substance usage deta
[2020-08-08] MEDS: KETOROLAC 30 MG/ML VIAL (*BKC) IV PUSH (09:50)
[2020-08-08 12:07] LABS: Troponin I < 0.012 ng/mL (0.000-0.034)
== END 2020-08-08 12:44 | disposition home or self-care (01) ==
PROVIDERS: Emergency Provider Emergency Medicine; PCP Family Medicine
DX: R07.89 Other chest pain (principal); R91.1 Solitary pulmonary nodule; D64.9 Anemia, unspecified; F41.9 Anxiety disorder, unspecified; E10.42 Type 1 diabetes mellitus with diabetic polyneuropathy; E10.319 Type 1 diabetes mellitus with unspecified diabetic retinopathy without macular edema; M79.7 Fibromyalgia; I70.209 Unspecified atherosclerosis of native arteries of extremities, unspecified extremity; K21.9 Gastro-esophageal reflux disease without esophagitis; K58.9 Irritable bowel syndrome, unspecified; F32.9 Major depressive disorder, single episode, unspecified; F42.9 Obsessive-compulsive disorder, unspecified; M81.0 Age-related osteoporosis without current pathological fracture; Z79.4 Long term (current) use of insulin; Z86.14 Personal history of Methicillin resistant Staphylococcus aureus infection; F17.210 Nicotine dependence, cigarettes, uncomplicated; R00.0 Tachycardia, unspecified; R94.31 Abnormal electrocardiogram [ECG] [EKG]
CPT/HCPCS: 36415; 36600; 71275; 80053; 81001; 82010; 82375; 82805; 82948; 83050; 83735; 84100; 84484; 85025; 93005; 96361; 96374; 96375; 99284; J1815; J1885; J2270; J7030; Q9967

== ENCOUNTER 2020-08-19 00:49 | Outpatient (CLI) | payer OTHER, SELFPAY ==
[2020-08-19 20:52] LABS: SARS-CoV-2 RNA PCR Negative
== END 2020-08-19 00:50 | disposition home or self-care (01) ==
LOC: ANHCOVIDDT 00:49
PROVIDERS: PCP Family Medicine; Visit Provider Plastic Surgery
DX: Z01.812 Encounter for preprocedural laboratory examination (principal); Z20.828 Contact with and (suspected) exposure to other viral communicable diseases
CPT/HCPCS: 87635; C9803; U0003

== ENCOUNTER 2020-08-20 08:35 | Outpatient (CLI) | payer OTHER, SELFPAY ==
--- NOTE | 2020-08-25 12:34 | WPDPFTINT ---
PFT Interpretation PFT Interpretation: DOS: 08/20/2020 REQUESTING: Yesika Al PA-C REASON FOR TESTING: Increased airway resistance PULMONARY FUNCTION TESTS Results are not reliable or reproducible as the patient was not able to exhale for 6 seconds. Spirometry: FEV1, FVC and FEV1% are all normal. There is a small decrease in JRO21-40%< 72% predicted. no bronchodilator was given Lung volumes: normal TLC, RV, RV/TLC. Increased airway resistance 202%. Diffusion: DLCO 54% moderately reduced. Flow volume loop: There is one normal inspiratory limb. IMPRESSION: Non reproducible results. Even without a full 6 second exhalation, there is normal spirometry and normal lung volumes. Increased airway resistance and moderate diffusion impairment. No bronchodilator was given. The most significant finding is the moderate decrease in diffusion. Clinical correlation is advised. Isolated decrease in diffusion can be seen in early interstitial lung disease, anemia, smoking, chronic thromboembolic disease, collagen vascular disease with pulmonary vascular involvement and other causes. Hina Ventura MD
== END 2020-08-20 08:36 | disposition home or self-care (01) ==
PROVIDERS: PCP Family Medicine; Visit Provider Physician Assistant Medical
DX: J43.9 Emphysema, unspecified (principal)
CPT/HCPCS: 94375; 94726; 94729

== ENCOUNTER 2020-08-21 01:43 | Day surgery (SDC) | payer OTHER, SELFPAY ==
[2020-08-06 15:31] VITALS: BMI 23.5
--- NOTE | 2020-08-21 07:10 | WPDHPUPDATE1 ---
History and Physical Update Update Date/Time: 08/21/20 07:10 History and Physical has been reviewed, including an updated exam of the patient. There are NO changes in the patient's condition. Risks, benefits, and alternatives have been discussed and questions answered. Patient agrees to proceed with procedure.
[2020-08-21 08:20] LABS: Glucose Point of Care 139 (65-105)
[2020-08-21] MEDS: LACTATED RINGERS 1,000 ML 30 ML IV CONT (08:30)
--- NOTE | 2020-08-21 08:55 | WPDANESEPPF ---
Anes - Initial Pre Proc Eval Procedure: Operation Date: 08/21/20 10:15 Proposed Procedures p Right Open Carpal Tunnel Release, Excision Ganglion Cyst Right Volar Wrist - Basim Boogie MD Date/Time: 08/21/20 08:55 Surgeon: Basim Boogie MD Pre Op Diagnosis: Rt Carpal Tunnel Syndrome/ Rt Volar Wrist Ganglion Patient Data Age: 35 Gender: F Height: 5 ft 7 in Weight: 67.4 kg Allergies Allergy/AdvReac Type Severity Reaction Status Date / Time adhesive tape Allergy Mild Rash Verified 08/21/20 08:10 Home Medications Medication Instructions Recorded Confirmed Type buspirone 30 mg PO BID 08/25/19 08/21/20 History fluvoxamine 300 mg PO HS 08/25/19 08/21/20 History quetiapine 300 mg PO HS 08/25/19 08/21/20 History lorazepam [Ativan] 10 mg PO TID PRN 12/03/19 08/21/20 History insulin lispro [Admelog U-100 See Rx Instructions .ROUTE .COMPLEX 06/23/20 08/07/20 History Insulin lispro] cholecalciferol (vitamin D3) 125 mcg PO DAILY 07/18/20 08/21/20 History Vitamin B-12 1 tablet PO DAILY 08/06/20 08/21/20 History meloxicam 15 mg PO DAILY 08/06/20 08/21/20 History varenicline 0.5 mg (11)-1 mg (42) See Rx Instructions PO PER PKG DIR 08/11/20 08/21/20 Rx tablets in a dose pack #53 ea varenicline 1 mg tablet 1 mg PO BID #56 tablet 08/11/20 08/21/20 Rx Laboratory Tests 08/21/20 08:16 POC Capillary Glucose 139 mg/dl H mg/dl (65-105) Patient hx anesthesia problems: post op nausea/vomiting Family hx anesthesia problems: none PMFSH Past Medical History Medical History Anemia Sees Dr. 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 S/P foot surgery, left Family History Family History Mother Family history of chronic obstructive pulmonary disease Atrial tachycardia Father Acute myocardial infarction Grandparent Bone cancer Other Cerebrovascular accident Diabetes mellitus Family history of arthritis Family history of coronary artery disease Family history of malignant neoplasm Family history of malignant neoplasm of breast Social History Social History Smoking packs per day: 1 Smoking cigarettes per day: 20.0 Years smoked: 20 Smoking pack-years: 20.00 Smoking status: Current every day smoker Tobacco type: cigarettes Second hand tobacco smoke exposure: Yes Additional smoking assessment comments: She has smoked a pack a cigarettes a day for 25 years Alcohol intake: current Drinks per week: 0 Substance use: current Substance use type: marijuana Other substance usage details: Uses marijuana every day. Last use: DAILY Additional living arrangements comments: With her . She has 2 children. Patient reports that she does not have a power of belt loop cutter. 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
[2020-08-21] MEDS: SCOPOLAMINE 1.5 MG PATCH TRANSDERM (09:10)
[2020-08-21 09:13] VITALS: BP 112/70; PULSE 92; RESP 16; TEMP 36.3; O2SAT 94
[2020-08-21] MEDS: LIDO 1%/EPINEPHRINE 1:100,000 20 ML VIAL 10 ML INFILTRATE (10:01)
--- NOTE | 2020-08-21 10:29 | SUR.OPER ---
dr. graham called to inspect right elbow scabbed draining lesion to right elbow. order was received to cover wound with bacitracin ointment and tegaderm
--- NOTE | 2020-08-21 10:37 | SUR.OPER ---
checked 1 vial of fentynal out of pyxsis for this patient and given to andrey manuel centerless grinder
[2020-08-21 10:58] VITALS: BP 98/65; PULSE 64; RESP 12; TEMP 36; O2SAT 100
[2020-08-21 11:17] LABS: Glucose Point of Care 148 (65-105)
--- NOTE | 2020-08-21 11:24 | PM.OP ---
Procedure Note - Brief Procedure Note - Brief Date of procedure: 08/21/20 Pre-op diagnosis: Rt Carpal Tunnel Syndrome/ Rt Volar Wrist Ganglion Post-op diagnosis: same Procedure performed: Right carpal tunnel release. Excision right volar wrist ganglion cyst. Anesthesia: MAC Surgeon: Basim Boogie MD Estimated blood loss (mL): 1 Tourniquet time (min): 20 Drains: No Packing: No Pathology: none sent Complications: No immediate complications Condition: stable Disposition: same day
--- NOTE | 2020-08-21 11:25 | PM.PROC ---
Procedure Note - Detailed Date of procedure: 08/21/20 Pre-op diagnosis: Rt Carpal Tunnel Syndrome/ Rt Volar Wrist Ganglion Post-op diagnosis: same Procedure performed: Right open carpal tunnel release. Excision right volar wrist ganglion cyst. Description of procedure: The 2 sites were marked on the patient's upper extremity in the holding area. She was taken to the operating room where she was placed supine on the operating table. The time-out was held and confirmed. She was given IV sedation. The extremity was prepped and draped in usual fashion. The tourniquet was inflated to 250 mmHg. The 2 sites were locally infiltrated with 1% lidocaine with epinephrine. The carpal tunnel release was done 1st with incision in the palm as marked. Dissection was carried through the subcutaneous tissue to the palmar fascia. This and the carpal ligament were incised with a 15. Blade. The carpal ligament was divided throughout its full length under 3 point retraction. No unusual anatomy was noted. The skin was closed with interrupted 5 0 nylon suture. Attention was turned to the nearby right volar wrist ganglion cyst. A curvilinear incision was made and dissection was carried bluntly through the subcutaneous tissue to the surface of the cyst. This cyst was carefully dissected periphery descending to its base. It was amputated at that level. The site was oversewn with a 4-0 Monocryl suture. The radial artery was not identified. The tourniquet was released prior to closure and the wound inspected for bleeding points. These were cauterized. The wound was closed with interrupted 4-0 intradermal Monocryl sutures. Both sites were treated with antibiotic ointment and the usual bandage with Natanael wrap the patient was discharged from the operating room in stable condition. She is discharged home with instructions in wound care and follow-up. She has a prescription for oxycodone number 9 and cephalexin 500 mg t.i.d. for 5 days. This latter was because of redness around the scabbed she has on her right elbow from a recent surgery. Surgeon: Basim Boogie MD
[2020-08-21 11:28] VITALS: BP 100/67; PULSE 79; RESP 12; O2SAT 99
[2020-08-21] MEDS: ONDANSETRON INJ 4 MG/2 ML VIAL IV PUSH (11:40)
[2020-08-21] MEDS: oxyCODONE HCL (*CRX) 5 MG TAB IR PO (11:44)
[2020-08-21 11:58] VITALS: BP 100/68; PULSE 80; RESP 12
== END 2020-08-21 12:20 | disposition home or self-care (01) ==
PROVIDERS: PCP Family Medicine; Visit Provider Plastic Surgery
PROC: (CPT 64721; principal; 2020-08-21 10:15)
DX: G56.01 Carpal tunnel syndrome, right upper limb (principal); M67.431 Ganglion, right wrist; E10.51 Type 1 diabetes mellitus with diabetic peripheral angiopathy without gangrene; E10.42 Type 1 diabetes mellitus with diabetic polyneuropathy; E10.319 Type 1 diabetes mellitus with unspecified diabetic retinopathy without macular edema; D64.9 Anemia, unspecified; F41.8 Other specified anxiety disorders; M79.7 Fibromyalgia; K21.9 Gastro-esophageal reflux disease without esophagitis; F42.8 Other obsessive-compulsive disorder; Z79.4 Long term (current) use of insulin; F12.90 Cannabis use, unspecified, uncomplicated; F17.210 Nicotine dependence, cigarettes, uncomplicated
CPT/HCPCS: 64721; 25111; A9270; J2250; J2405; J2704; J3010; J7120

== ENCOUNTER 2020-09-10 18:53 | Emergency (ER) | payer OTHER, SELFPAY ==
[2020-09-10 19:01] VITALS: BP 133/88; PULSE 96; RESP 17; TEMP 36.2; O2SAT 100
[2020-09-10 19:09] LABS: Glucose Point of Care > 500 (65-105)
--- NOTE | 2020-09-10 19:23 | ED.RECABL ---
HPI - Recheck/Abnormal Lab/Rx General Chief Complaint: Recheck/Abnormal Lab/Rx Stated Complaint: High blood sugar Time Seen by Provider: 09/10/20 19:08 Source: patient Mode of arrival: ambulatory Limitations: no limitations History of Present Illness HPI narrative: This patent is a 35 year old female with history of Insulin dependent Diabetes mellitus who presents for evaluation of hyperglycemia. She states starting 3 hours ago her blood sugar was over 600. She changed the site of her insulin pump a couple of times. She gave herself 15 units of insulin approximately 1 hour ago. She reports she thinks her blood sugar is coming down since it is now 500s. She had nausea and vomiting prior to arrival. She denies fever, chills. She states she has been on antibiotics prophylactically after having a carpal tunnel surgery. Over the past 2 days she has gum soreness and thrush. She also reports painful cyst to her ear lobes. Related Data Home Medications Medication Instructions Recorded Confirmed buspirone 30 mg PO BID 08/25/19 08/21/20 fluvoxamine 300 mg PO HS 08/25/19 08/21/20 quetiapine 300 mg PO HS 08/25/19 08/21/20 lorazepam [Ativan] 10 mg PO TID PRN 12/03/19 08/21/20 insulin lispro [Admelog U-100 See Rx Instructions .ROUTE .COMPLEX 06/23/20 08/07/20 Insulin lispro] cholecalciferol (vitamin D3) 125 mcg PO DAILY 07/18/20 08/21/20 Vitamin B-12 1 tablet PO DAILY 08/06/20 08/21/20 meloxicam 15 mg PO DAILY 08/06/20 08/21/20 Allergies Allergy/AdvReac Type Severity Reaction Status Date / Time adhesive tape Allergy Mild Rash Verified 08/21/20 08:10 Review of Systems Review of Systems: All systems reviewed & are unremarkable except as noted in HPI and below Constitutional: Constitutional: Denies chills and Denies fever(s) Cardiovascular: Cardiovascular: Denies chest pain Respiratory: Respiratory: Denies cough and Denies dyspnea Gastrointestinal: Gastrointestinal: Denies abdominal pain, Reports nausea and Reports vomiting PMFSH Past Medical History Medical History Anemia Sees Dr. 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 S/P foot surgery, left Family History Family History Mother Family history of chronic obstructive pulmonary disease Atrial tachycardia Father Acute myocardial infarction Grandparent Bone cancer Other Cerebrovascular accident Diabetes mellitus Family history of arthritis Family history of coronary artery disease Family history of malignant neoplasm Family history of malignant neoplasm of breast Social History Social History Smoking packs per day: 1 Smoking cigarettes per day: 20.0 Years smoked: 20 Smoking pack-years: 20.00 Smoking status: Current every day smoker Tobacco type: cigarettes Second hand tobacco smoke exposure: Yes Additional smoking assessment comments: She has smoked a pack a cigarettes a day for 25 years Alcohol intake: current Drinks per week: 0 Substance use: current Substance use type: marijuana Other substance usage details: Uses johnny
[2020-09-10 19:40] LABS: Alveolar/Arterial O2 Gradient 12.8 mmHg; Base Excess ABG 2.7 mEq/l (+/-2.0); Carboxyhemoglobin 6.1 % THb (0-2.0); Fractional Inspired Oxygen 21 %; HCO3 ABG 27.4 mEq/l (22.0-26.0); Methemoglobin ABG 0.3 %THb (0-1.5); Oxygen Content ABG 17.8 %vol (16.0-22.0); Oxygen Saturation ABG 96.7 % (95.0-100.0); Oxyhemoglobin 90.2 % THb (90.0-100.0); PCO2 ABG 42.4 mmHg (35.0-45.0); PO2 ABG 86.2 mmHg (80.0-100.0); Reduced Hemoglobin 3.4 %THb (0-5.0); pH ABG 7.428 (7.350-7.450)
[2020-09-10 19:40] LABS: Basophils Absolute Auto 0.1 K/mm3 (0.0-0.1); Eosinophils Absolute Auto 0.6 K/mm3 (0-0.3); Eosinophils Percent Auto 7.1 % (0-4.4); Hematocrit 39.4 % (37.0-47.0); Hemoglobin 13.6 g/dL (12.0-15.0); Immature Granulocyte Absolute 0.01 K/mm3 (0.00-0.031); Immature Granulocyte Percent A 0.1 % (0-0.5); Lymphocytes Absolute Auto 2.79 K/mm3 (0.9-3.2); Lymphocytes Percent Auto 31.9 % (18.3-44.2); Mean Corpuscular HGB Conc 34.5 g/dl (32-36); Mean Corpuscular Hemoglobin 30.2 pg (26-34); Mean Corpuscular Volume 87.6 fl (80-100); Mean Platelet Volume 10.2 fl (7.4-10.4); Monocytes Absolute Auto 0.5 K/mm3 (0.1-0.6); Monocytes Percent Auto 5.8 % (2.6-8.5); Neutrophils Absolute Auto 4.7 K/mm3 (1.3-6.7); Neutrophils Percent Auto 54.1 % (45.5-73.1); Platelet Count Result 209 k/mm3 (150-375); Red Cell Distribution Width 12.1 % (11.5-14.5); White Blood Count 8.7 K/mm3 (4.5-10.0)
[2020-09-10 19:41] LABS: Device ROOM AIR; Modified Allen's Test Pass; Site Drawn LEFT RADIAL
[2020-09-10] MEDS: ONDANSETRON INJ 4 MG/2 ML VIAL IV PUSH (19:43)
[2020-09-10] MEDS: SODIUM CHLORIDE 0.9% IV 1,000 ML 999 ML IV CONT (19:43)
[2020-09-10 19:57] LABS: Alanine Aminotransferase 37 U/L (4-35); Albumin Level 4.4 g/dL (3.5-5.1); Alkaline Phosphatase 183 U/L (38-126); Anion Gap 10 mmol/L (8-16); Aspartate Amino Transferase 42 U/L (14-36); Bilirubin,Total 0.4 mg/dL (0.2-1.3); Blood Urea Nitrogen 22 mg/dL (7-17); Calcium 10.3 mg/dL (8.4-10.2); Carbon Dioxide 28 mmol/L (22-30); Chloride 99 mmol/L (98-107); Estimated CRCL calculation 84 ml/min; Estimated Glomerular Filt Rate > 60; Glucose 316 mg/dL (65-105); Magnesium 2.2 mg/dL (1.6-2.3); Phosphorus 3.6 mg/dL (2.5-4.5); Potassium 3.7 mmol/L (3.4-5.0); Sodium 137 mmol/L (137-145)
[2020-09-10 20:01] LABS: Beta-Hydroxybutyrate/Acetoacetate 0.08 mmol/L (0.02-0.27)
[2020-09-10 20:10] LABS: Add Urine Microscopic? YES; Appearance Urine Clear (Clear); Bilirubin Urine Negative (Negative); Blood Urine Negative (Negative); Color Urine Straw (Yellow); Glucose Urine UA 3+ mg/dL (Negative); Ketones Urine Negative (Negative); Leukocyte Esterase Ur Negative LEU/UL (Negative); Mucus Urine Rare /lpf; Nitrate Urine Negative (Negative); Protein Urine Negative (Negative); RBC Urine 0-2 /hpf (0-2); Squamous Epithelial Cell Urine Few /hpf (Few); Urobilinogen Urine Negative mg/dL (<2.0)
[2020-09-10 20:13] LABS: Specific Grav Ur 1.032 (1.001-1.035)
[2020-09-10 20:42] VITALS: BP 121/73; PULSE 76; RESP 16; TEMP 36.7; O2SAT 99
== END 2020-09-10 20:42 | disposition home or self-care (01) ==
PROVIDERS: Emergency Provider General Practice; PCP Family Medicine
DX: E10.65 Type 1 diabetes mellitus with hyperglycemia (principal); E10.42 Type 1 diabetes mellitus with diabetic polyneuropathy; E10.319 Type 1 diabetes mellitus with unspecified diabetic retinopathy without macular edema; D64.9 Anemia, unspecified; M79.7 Fibromyalgia; K21.9 Gastro-esophageal reflux disease without esophagitis; K58.9 Irritable bowel syndrome, unspecified; F32.9 Major depressive disorder, single episode, unspecified; F42.9 Obsessive-compulsive disorder, unspecified; M81.0 Age-related osteoporosis without current pathological fracture; Z79.4 Long term (current) use of insulin; Z86.14 Personal history of Methicillin resistant Staphylococcus aureus infection; F17.210 Nicotine dependence, cigarettes, uncomplicated
CPT/HCPCS: 36415; 36600; 80053; 81001; 81025; 82010; 82375; 82805; 82948; 83050; 83735; 84100; 85025; 96361; 96374; 99284; J2405; J7030

== ENCOUNTER 2021-01-03 15:16 | Emergency (ER) | payer OTHER, SELFPAY ==
--- NOTE | ~2021-01-03 | XR_ITS ---
XR foot LT min 3V DATE: 01/03/2021 16:27 INDICATION: Achilles tendon surgery 4 weeks ago. Pain and swelling. TECHNIQUE: 4 views COMPARISON: 11/10/2019 left foot FINDINGS: There is diffuse osteopenia. There is old healed fracture deformity of the distal third metatarsal shaft and distal fifth metatars al shaft. There is interval development of some patchy sclerosis and some focal circular lucencies of the proxi mal to mid shaft of the fifth metatarsal bone which may be related to healing fracture or postoperati ve change. Osteomyelitis is not excluded. Clinical correlation is advised. No other fracture or dislocation, periosteal reaction or bone destruction. IMPRESSION: Old healed third and fifth metatarsal shaft fractures Interval patchy sclerosis and scattered lucencies of the proximal to mid shaft of the fifth metatarsa l bone; consider healing fracture versus osteomyelitis or postoperative change. Clinical correlation is advised Reviewed, dictated and finalized at location A. IMPRESSION: Old healed third and fifth metatarsal shaft fractures Interval patchy sclerosis and scattered lucencies of the proximal to mid shaft of the fifth metatarsal bone; consider healing fracture versus osteomyelitis or postoperative change. Clinical correlation is advised
--- NOTE | ~2021-01-03 | XR_ITS ---
XR ankle LT min 3V DATE: 01/03/2021 16:27 INDICATION: Swelling and pain of left ankle. Right Achilles tendon surgery 4 weeks ago. TECHNIQUE: 4 views COMPARISON: 07/27/2019 left ankle 01/03/2021 left foot FINDINGS: There is prominent generalized soft tissue swelling of the left ankle, new findings since . No fracture or dislocation of the ankle or disruption of the ankle mortise is detected. No periosteal reaction or bone destruction is noted at the ankle. There is a heterogeneous density/sclerosis at the proximal shaft of the fifth metatarsal bone. Old distal fifth and third metatarsal shaft fractures are noted. IMPRESSION: Prominent ankle soft tissue swelling Reviewed, dictated and finalized at location A.
[2021-01-03 15:20] VITALS: BP 144/93; PULSE 100; RESP 18; TEMP 36.4; O2SAT 100
--- NOTE | 2021-01-03 15:43 | ED.GENADULT ---
HPI - General Adult General Chief complaint: Extremity Injury, Lower Stated complaint: ankle injury Time Seen by Provider: 01/03/21 15:20 Source: patient and old records reviewed Mode of arrival: ambulatory Limitations: no limitations History of Present Illness HPI narrative: Patient is a 35-year-old female who presents with left foot and ankle pain noting swelling around the ankle joint patient is followed by podiatry out of [place] patient had surgery on her metatarsal 4 weeks ago after sustaining a fracture. Patient notes that she has poor feeling in the extremity chronically and she is unsure as to whether or not she injured it. Patient also notes an ulcer to the plantar surface of the forefoot proximal of the first phalanx that is chronic and is improved. Patient surgical incision is well approximated without erythema. Patient notes that her sugars typically run in the 200-300 range. Patient did not check her sugars today. Patient denies any vomiting diarrhea or other complaints or illnesses. Patient with history of tobacco abuse and insulin-dependent diabetes mellitus. Patient know she is not on antibiotics at this time Related Data Home Medications Medication Instructions Recorded Confirmed buspirone 30 mg PO BID 08/25/19 08/21/20 fluvoxamine 300 mg PO HS 08/25/19 08/21/20 quetiapine 300 mg PO HS 08/25/19 08/21/20 lorazepam [Ativan] 10 mg PO TID PRN 12/03/19 08/21/20 insulin lispro [Admelog U-100 See Rx Instructions .ROUTE .COMPLEX 06/23/20 08/07/20 Insulin lispro] insulin glargine [Lantus U-100 SUBCUT 01/03/21 Insulin] Allergies Allergy/AdvReac Type Severity Reaction Status Date / Time adhesive tape Allergy Mild Rash Verified 01/03/21 15:25 Review of Systems Review of Systems: All systems reviewed & are unremarkable except as noted in HPI and below PMFSH Past Medical History Medical History Anemia Sees Dr. 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 S/P foot surgery, left Family History Family History Mother Family history of chronic obstructive pulmonary disease Atrial tachycardia Father Acute myocardial infarction Grandparent Bone cancer Other Cerebrovascular accident Diabetes mellitus Family history of arthritis Family history of coronary artery disease Family history of malignant neoplasm Family history of malignant neoplasm of breast Social History Social History Smoking packs per day: 1 Smoking cigarettes per day: 20.0 Years smoked: 20 Smoking pack-years: 20.00 Smoking status: Current every day smoker Tobacco type: cigarettes Second hand tobacco smoke exposure: Yes Additional smoking assessment comments: She has smoked a pack a cigarettes a day for 25 years Alcohol intake: current Drinks per week: 0 Substance use: current Substance use type: marijuana Other substance usage details: Uses marijuana every day. Last use: DAILY Additional living arrangements comments: With her . She has 2 children. Patient reports that she does not have a power of state's attorney.
[2021-01-03 16:00] LABS: Alveolar/Arterial O2 Gradient 24.2 mmHg; Base Excess ABG 2.2 mEq/l (+/-2.0); Carboxyhemoglobin 7.8 % THb (0-2.0); Fractional Inspired Oxygen 21 %; Oxygen Content ABG 14.8 %vol (16.0-22.0); Oxygen Saturation ABG 95.1 % (95.0-100.0); Oxyhemoglobin 87.4 % THb (90.0-100.0); PCO2 ABG 42.7 mmHg (35.0-45.0); PO2 ABG 74.4 mmHg (80.0-100.0); PO2 FiO2 Ratio Arterial Blood 3.54 %; Reduced Hemoglobin 4.8 %THb (0-5.0); Site Drawn RIGHT RADIAL; pH ABG 7.418 (7.350-7.450)
[2021-01-03 16:01] LABS: Device ROOM AIR; Modified Allen's Test Pass
[2021-01-03 16:04] LABS: Glucose Point of Care 313 (65-105)
[2021-01-03] MEDS: SODIUM CHLORIDE 0.9% IV 1,000 ML 999 ML IV CONT (16:05)
[2021-01-03 16:11] LABS: Add Urine Microscopic? YES; Appearance Urine Cloudy (Clear); Bacteria Urine Trace /hpf; Bilirubin Urine Negative (Negative); Blood Urine 1+ (Negative); Color Urine Yellow (Yellow); Glucose Urine UA 3+ mg/dL (Negative); Ketones Urine Negative (Negative); Leukocyte Esterase Ur Negative LEU/UL (Negative); Mucus Urine Rare /lpf; Nitrate Urine Negative (Negative); Protein Urine Negative (Negative); RBC Urine 0-2 /hpf (0-2); Specific Grav Ur 1.026 (1.001-1.035); Squamous Epithelial Cell Urine Many /hpf (Few); Urobilinogen Urine Negative mg/dL (<2.0); WBC Urine 0-3 /hpf
[2021-01-03 16:15] LABS: Lactic Acid Reflex 0.9 mmol/L (0.7-2.1)
[2021-01-03 16:20] LABS: Beta-Hydroxybutyrate/Acetoacetate 0.11 mmol/L (0.02-0.27)
[2021-01-03 16:35] VITALS: TEMP 36.4
[2021-01-03 16:39] LABS: Basophils Absolute Auto 0.1 K/mm3 (0.0-0.1); Basophils Percent Auto 0.7 % (0.2-1.2); Eosinophils Absolute Auto 0.5 K/mm3 (0-0.3); Eosinophils Percent Auto 7.2 % (0-4.4); Hematocrit 34.3 % (37.0-47.0); Hemoglobin 11.7 g/dL (12.0-15.0); Immature Granulocyte Absolute 0.02 K/mm3 (0.00-0.031); Immature Granulocyte Percent A 0.3 % (0-0.5); Lymphocytes Absolute Auto 2.25 K/mm3 (0.9-3.2); Lymphocytes Percent Auto 31.3 % (18.3-44.2); Mean Corpuscular HGB Conc 34.1 g/dl (32-36); Mean Corpuscular Hemoglobin 30.8 pg (26-34); Mean Corpuscular Volume 90.3 fl (80-100); Mean Platelet Volume 10.4 fl (7.4-10.4); Monocytes Absolute Auto 0.5 K/mm3 (0.1-0.6); Monocytes Percent Auto 7.4 % (2.6-8.5); Neutrophils Absolute Auto 3.8 K/mm3 (1.3-6.7); Neutrophils Percent Auto 53.1 % (45.5-73.1); Platelet Count Result 167 k/mm3 (150-375); Red Cell Distribution Width 12.1 % (11.5-14.5); White Blood Count 7.2 K/mm3 (4.5-10.0)
[2021-01-03 16:54] LABS: Alanine Aminotransferase 20 U/L (4-35); Albumin Level 3.8 g/dL (3.5-5.1); Alkaline Phosphatase 172 U/L (38-126); Anion Gap 3 mmol/L (8-16); Aspartate Amino Transferase 29 U/L (14-36); Bilirubin,Total 0.2 mg/dL (0.2-1.3); Blood Urea Nitrogen 10 mg/dL (7-17); CRP 1.2 mg/dL (<1.0); Carbon Dioxide 31 mmol/L (22-30); Chloride 104 mmol/L (98-107); Estimated CRCL calculation 95 ml/min; Estimated Glomerular Filt Rate > 60; Glucose 278 mg/dL (65-105); Magnesium 1.7 mg/dL (1.6-2.3); Phosphorus 2.8 mg/dL (2.5-4.5); Potassium 3.4 mmol/L (3.4-5.0); Sodium 138 mmol/L (137-145)
[2021-01-03 16:57] VITALS: BP 116/84; PULSE 77; RESP 18; O2SAT 99
[2021-01-03 17:16] LABS: Erythrocyte Sedimentation Rate 27 mm/hr (0-20)
== END 2021-01-03 18:04 | disposition home or self-care (01) ==
PROVIDERS: Emergency Medicine Emergency Medical Services; Emergency Provider Emergency Medicine; PCP Family Medicine
DX: M25.472 Effusion, left ankle (principal); E10.43 Type 1 diabetes mellitus with diabetic autonomic (poly)neuropathy; E10.319 Type 1 diabetes mellitus with unspecified diabetic retinopathy without macular edema; E10.51 Type 1 diabetes mellitus with diabetic peripheral angiopathy without gangrene; M79.7 Fibromyalgia; K21.9 Gastro-esophageal reflux disease without esophagitis; F32.9 Major depressive disorder, single episode, unspecified; F41.9 Anxiety disorder, unspecified; F42.9 Obsessive-compulsive disorder, unspecified; M81.0 Age-related osteoporosis without current pathological fracture; D64.9 Anemia, unspecified; F17.210 Nicotine dependence, cigarettes, uncomplicated; Z86.14 Personal history of Methicillin resistant Staphylococcus aureus infection; K58.9 Irritable bowel syndrome, unspecified; R93.6 Abnormal findings on diagnostic imaging of limbs
CPT/HCPCS: 36415; 36600; 73610; 73630; 80053; 81001; 82010; 82375; 82805; 82948; 83050; 83605; 83735; 84100; 85025; 85652; 86140; 87040; 96365; 99284; J0131; J7030

== ENCOUNTER 2021-01-10 08:02 | Emergency (ER) | payer OTHER, SELFPAY ==
[2021-01-10] VITALS (20 sets, daily range): BP systolic 102–118; BP diastolic 63–83; PULSE 80–122; RESP 12–20; TEMP 36.3; O2SAT 96–100
--- NOTE | 2021-01-10 08:11 | ED.RECABL ---
HPI - Recheck/Abnormal Lab/Rx General Chief Complaint: Recheck/Abnormal Lab/Rx Stated Complaint: high blood sugar Time Seen by Provider: 01/10/21 08:11 History of Present Illness HPI narrative: 35 yo female w/ h/o poorly controlled DM type I presents to the ED for elevated blood sugar. She reports that overnight her insulin pump fell out. She vomitted several times overnight. When she awoke today her blood sugar was over 500. She reports that before this happened she was in her normal state of health and her glucose was under good control. Related Data Home Medications Medication Instructions Recorded Confirmed buspirone 30 mg PO BID 08/25/19 08/21/20 fluvoxamine 300 mg PO HS 08/25/19 08/21/20 quetiapine 300 mg PO HS 08/25/19 08/21/20 lorazepam [Ativan] 10 mg PO TID PRN 12/03/19 08/21/20 insulin lispro [Admelog U-100 See Rx Instructions .ROUTE .COMPLEX 06/23/20 08/07/20 Insulin lispro] insulin glargine [Lantus U-100 SUBCUT 01/03/21 Insulin] Allergies Allergy/AdvReac Type Severity Reaction Status Date / Time adhesive tape Allergy Mild Rash Verified 01/10/21 08:08 Review of Systems Review of Systems: All systems reviewed & are unremarkable except as noted in HPI and below Constitutional: Constitutional: Denies fever(s) and Denies weakness ENT: Denies sore throat Cardiovascular: Cardiovascular: Denies chest pain Respiratory: Respiratory: Denies cough and Denies dyspnea Gastrointestinal: Gastrointestinal: Denies abdominal pain, Denies diarrhea, Reports nausea and Reports vomiting Genitourinary: Genitourinary: Reports no additional female genitourinary complaints Musculoskeletal: Musculoskeletal: Denies back pain Neurologic: Denies confusion, Denies dizziness and Denies weakness Endocrine: Endocrine: Denies polydipsia and Denies polyuria [facility] Past Medical History Medical History Anemia Sees Dr. 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 S/P foot surgery, left Family History Family History Mother Family history of chronic obstructive pulmonary disease Atrial tachycardia Father Acute myocardial infarction Grandparent Bone cancer Other Cerebrovascular accident Diabetes mellitus Family history of arthritis Family history of coronary artery disease Family history of malignant neoplasm Family history of malignant neoplasm of breast Social History Social History Smoking packs per day: 1 Smoking cigarettes per day: 20.0 Years smoked: 20 Smoking pack-years: 20.00 Smoking status: Current every day smoker Tobacco type: cigarettes Second hand tobacco smoke exposure: Yes Additional smoking assessment comments: She has smoked a pack a cigarettes a day for 25 years Alcohol intake: current Drinks per week: 0 Substance use: current Substance use type: marijuana Other substance usage details: Uses marijuana every day. Last use: DAILY Additional living arrangements comments: With her . She has 2 children. 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
[2021-01-10 08:21] LABS: Glucose Point of Care > 500 (65-105)
[2021-01-10] MEDS: SODIUM CHLORIDE 0.9% IV 1,000 ML 999 ML IV CONT ×2 (08:22→08:58)
[2021-01-10 08:27] LABS: Basophils Absolute Auto 0.1 K/mm3 (0.0-0.1); Basophils Percent Auto 0.9 % (0.2-1.2); Eosinophils Absolute Auto 0.2 K/mm3 (0-0.3); Eosinophils Percent Auto 2.2 % (0-4.4); Hematocrit 38.4 % (37.0-47.0); Hemoglobin 13.4 g/dL (12.0-15.0); Immature Granulocyte Absolute 0.03 K/mm3 (0.00-0.031); Immature Granulocyte Percent A 0.3 % (0-0.5); Lymphocytes Absolute Auto 1.29 K/mm3 (0.9-3.2); Lymphocytes Percent Auto 14.2 % (18.3-44.2); Mean Corpuscular HGB Conc 34.9 g/dl (32-36); Mean Corpuscular Hemoglobin 30.6 pg (26-34); Mean Corpuscular Volume 87.7 fl (80-100); Mean Platelet Volume 10.4 fl (7.4-10.4); Monocytes Absolute Auto 0.5 K/mm3 (0.1-0.6); Monocytes Percent Auto 5.5 % (2.6-8.5); Neutrophils Percent Auto 76.9 % (45.5-73.1); Platelet Count Result 208 k/mm3 (150-375); Red Blood Count 4.38 M/mm3 (4.2-5.4); Red Cell Distribution Width 11.9 % (11.5-14.5); White Blood Count 9.1 K/mm3 (4.5-10.0)
[2021-01-10 08:34] LABS: Add Urine Microscopic? YES; Appearance Urine Clear (Clear); Bacteria Urine Trace /hpf; Bilirubin Urine Negative (Negative); Blood Urine Negative (Negative); Color Urine Yellow (Yellow); Glucose Urine UA 3+ mg/dL (Negative); Ketones Urine 2+ mg/dL (Negative); Leukocyte Esterase Ur Negative LEU/UL (Negative); Nitrate Urine Negative (Negative); Protein Urine Negative (Negative); Squamous Epithelial Cell Urine Moderate /hpf (Few); Urobilinogen Urine Negative mg/dL (<2.0); WBC Urine 0-3 /hpf
[2021-01-10 08:40] LABS: Potassium 3.8 mmol/L (3.4-5.0)
[2021-01-10] MEDS: INSULIN HUMAN REGULAR (*BKC) 100 UNITS/ML 10 UNITS IV PUSH (08:45)
[2021-01-10 08:46] LABS: Alanine Aminotransferase 19 U/L (4-35); Albumin Level 4.3 g/dL (3.5-5.1); Alkaline Phosphatase 187 U/L (38-126); Anion Gap 16 mmol/L (8-16); Aspartate Amino Transferase 27 U/L (14-36); Beta-Hydroxybutyrate/Acetoacetate 3.46 mmol/L (0.02-0.27); Bilirubin,Total 0.8 mg/dL (0.2-1.3); Blood Urea Nitrogen 20 mg/dL (7-17); Calcium 9.8 mg/dL (8.4-10.2); Carbon Dioxide 19 mmol/L (22-30); Chloride 98 mmol/L (98-107); Estimated CRCL calculation 84 ml/min; Estimated Glomerular Filt Rate > 60; Glucose 557 mg/dL (65-105); Sodium 133 mmol/L (137-145)
[2021-01-10 09:51] LABS: Glucose Point of Care 292 (65-105)
[2021-01-10 10:26] LABS: Anion Gap 7 mmol/L (8-16); Blood Urea Nitrogen 19 mg/dL (7-17); Calcium 8.6 mg/dL (8.4-10.2); Carbon Dioxide 22 mmol/L (22-30); Chloride 108 mmol/L (98-107); Estimated CRCL calculation 109 ml/min; Estimated Glomerular Filt Rate > 60; Glucose 301 mg/dL (65-105); Potassium 3.9 mmol/L (3.4-5.0); Sodium 137 mmol/L (137-145)
== END 2021-01-10 10:39 | disposition home or self-care (01) ==
PROVIDERS: Emergency Provider Emergency Medicine; PCP Family Medicine
DX: E10.65 Type 1 diabetes mellitus with hyperglycemia (principal); E10.42 Type 1 diabetes mellitus with diabetic polyneuropathy; E10.319 Type 1 diabetes mellitus with unspecified diabetic retinopathy without macular edema; F42.9 Obsessive-compulsive disorder, unspecified; K58.9 Irritable bowel syndrome, unspecified; M79.7 Fibromyalgia; F41.9 Anxiety disorder, unspecified; F32.9 Major depressive disorder, single episode, unspecified; F17.210 Nicotine dependence, cigarettes, uncomplicated; Z86.14 Personal history of Methicillin resistant Staphylococcus aureus infection
CPT/HCPCS: 36415; 80048; 80053; 81001; 82010; 82948; 85025; 96361; 96374; 99284; J1815; J7030

== ENCOUNTER → 2021-01-22 07:00 | Outpatient (CLI) | payer OTHER, SELFPAY ==
[2021-01-22 17:57] LABS: SARS-CoV-2 RNA PCR Negative
== END ==
PROVIDERS: PCP Family Medicine; Visit Provider Nurse Practitioner Family
DX: Z20.822 Contact with and (suspected) exposure to COVID-19 (principal)
CPT/HCPCS: C9803; U0003; U0005

== ENCOUNTER 2021-05-05 14:03 | Emergency (ER) | payer OTHER, SELFPAY ==
[2021-05-05 14:11] VITALS: BP 112/76; PULSE 87; RESP 16; TEMP 36.7; O2SAT 100
--- NOTE | 2021-05-05 14:37 | ED.UPPEXIN ---
HPI - Extremity Injury (Upper) General Chief Complaint: Extremity Problem,Nontraumatic Stated Complaint: Right Hand Pain Time Seen by Provider: 05/05/21 15:16 Source: patient and RN notes reviewed Mode of arrival: ambulatory Limitations: no limitations History of Present Illness HPI narrative: 36-year-old female presents with concern for pain, decreased range of motion to the fourth digit of the right hand. She reports the pain has been ongoing and worsening. Reports pain at rest, worsening pain with range of motion that radiates down to the palmar side of her hand. She reports the finger will lock in a straight position or a flexed position and she has to manually unlock it. She denies injury or trauma. MD complaint: injury to: right and hand Related Data Home Medications Medication Instructions Recorded Confirmed buspirone 30 mg PO BID 08/25/19 05/05/21 quetiapine 300 mg PO HS 08/25/19 05/05/21 lorazepam [Ativan] 0.5 mg PO TID PRN 12/03/19 05/05/21 insulin lispro [Admelog U-100 See Rx Instructions .ROUTE .COMPLEX 06/23/20 03/26/21 Insulin lispro] insulin glargine [Lantus U-100 unit SUBCUT DIRECTED 01/03/21 03/26/21 Insulin] fluvoxamine 100 mg PO DAILY 05/05/21 05/05/21 gabapentin 300 mg PO DIRECTED 05/05/21 05/05/21 Allergies Allergy/AdvReac Type Severity Reaction Status Date / Time adhesive tape Allergy Mild Rash Verified 05/05/21 14:55 Review of Systems Review of Systems: Narrative: CONSTITUTIONAL: Denies malaise, chills, sweats, or fever. SKIN: Denies lacerations, abrasions, redness, bruising MUSCULOSKELETAL: Reports pain, walking, swelling of the fourth digit of the right hand NEUROLOGIC: Denies numbness, weakness All systems reviewed & are unremarkable except as noted in HPI and below PMFSH Past Medical History Medical History Achilles tendinitis, left leg Anemia Sees Dr. hernandez Anxiety BMI 23.0-23.9, adult BMI 24.0-24.9, adult Depression 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 Fibromyalgia Gastroesophageal reflux disease IBS (irritable bowel syndrome) Insulin dependent diabetes mellitus Left foot drop MRSA (methicillin resistant staph aureus) culture positive OCD (obsessive compulsive disorder) Osteoporosis Peripheral neuropathy Retinopathy Substance abuse Marijuana use daily Tobacco abuse Toenail fungus Left great toenail removed in some removed around the right toe nail great toe and 5th 1 on right foot Surgical History Surgical History H/O foot surgery H/O hysterectomy with oophorectomy H/O tubal ligation History of carpal tunnel release Right hand with ganglion cyst removal. S/P foot surgery, left Family History Family History Mother Family history of chronic obstructive pulmonary disease Atrial tachycardia Father Acute myocardial infarction Grandparent Bone cancer Other Cerebrovascular accident Diabetes mellitus Family history of arthritis Family history of coronary artery disease Family history of malignant neoplasm Family history of malignant neoplasm of breast Social History Social History Smoking packs per day: 1 Smoking cigarettes per day: 20.0 Years smoked: 20 Smoking pack-years: 20.00 Tobacco type: cigarettes Second hand tobacco smoke exposure: Yes Additional smoking assessment comments: She has smoked a pack a cigarettes a day for 25 years Alcohol intake: never Drinks per week: 0 Substance use: current Substance use type: marijuana Other substance usage details: Uses marijuana every day. Last use: DAILY Additional living arrangements comments: With her . She has 2 children. 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
== END 2021-05-05 15:40 | disposition home or self-care (01) ==
PROVIDERS: Emergency Provider Nurse Practitioner; PCP Family Medicine
DX: M65.341 Trigger finger, right ring finger (principal); D64.9 Anemia, unspecified; F41.9 Anxiety disorder, unspecified; F32.9 Major depressive disorder, single episode, unspecified; M79.7 Fibromyalgia; K21.9 Gastro-esophageal reflux disease without esophagitis; Z79.4 Long term (current) use of insulin; Z86.14 Personal history of Methicillin resistant Staphylococcus aureus infection; F42.9 Obsessive-compulsive disorder, unspecified; E10.42 Type 1 diabetes mellitus with diabetic polyneuropathy; E10.319 Type 1 diabetes mellitus with unspecified diabetic retinopathy without macular edema
CPT/HCPCS: 29130; 99213; G0463

== ENCOUNTER 2021-05-10 21:12 | Emergency (ER) | payer OTHER, SELFPAY ==
[2021-05-10 21:16] VITALS: BP 123/72; PULSE 95; RESP 16; TEMP 36.2; O2SAT 100
--- NOTE | 2021-05-10 21:40 | PC.NURSE ---
called pts name to get her back to room 17, no response. will attempt again in a few minutes.
--- NOTE | 2021-05-10 21:45 | PC.NURSE ---
called pts name again to take back to a room, no response.
== END 2021-05-10 21:45 | disposition left against medical advice (07) ==
PROVIDERS: PCP Family Medicine
DX: L98.9 Disorder of the skin and subcutaneous tissue, unspecified (principal)
CPT/HCPCS: 99199

== ENCOUNTER 2021-08-01 08:39 | Outpatient (CLI) | payer OTHER, SELFPAY ==
[2021-08-01 08:55] LABS: Basophils Absolute Auto 0.1 K/mm3 (0.0-0.1); Eosinophils Absolute Auto 0.6 K/mm3 (0-0.3); Eosinophils Percent Auto 7.9 % (0-4.4); Hematocrit 40.6 % (37.0-47.0); Hemoglobin 13.4 g/dL (12.0-15.0); Immature Granulocyte Absolute 0.01 K/mm3 (0.00-0.031); Immature Granulocyte Percent A 0.1 % (0-0.5); Lymphocytes Absolute Auto 2.12 K/mm3 (0.9-3.2); Lymphocytes Percent Auto 29.5 % (18.3-44.2); Mean Corpuscular Hemoglobin 31.3 pg (26-34); Mean Corpuscular Volume 94.9 fl (80-100); Mean Platelet Volume 9.8 fl (7.4-10.4); Monocytes Absolute Auto 0.5 K/mm3 (0.1-0.6); Neutrophils Absolute Auto 3.9 K/mm3 (1.3-6.7); Neutrophils Percent Auto 54.5 % (45.5-73.1); Platelet Count Result 170 k/mm3 (150-375); Red Blood Count 4.28 M/mm3 (4.2-5.4); Red Cell Distribution Width 12.1 % (11.5-14.5); White Blood Count 7.2 K/mm3 (4.5-10.0)
[2021-08-01 10:17] LABS: Vitamin D 25 Hydroxy 47.2 ng/mL
[2021-08-01 10:53] LABS: Rheumatoid Factor < 8.6 IU/ML (<12)
[2021-08-01 10:56] LABS: Alanine Aminotransferase 24 U/L (4-35); Albumin Level 4.4 g/dL (3.5-5.1); Alkaline Phosphatase 95 U/L (38-126); Anion Gap 7 mmol/L (8-16); Aspartate Amino Transferase 32 U/L (14-36); Bilirubin,Total 0.5 mg/dL (0.2-1.3); Blood Urea Nitrogen 21 mg/dL (7-17); CRP < 0.5 mg/dL (<1.0); Carbon Dioxide 28 mmol/L (22-30); Chloride 110 mmol/L (98-107); Cholesterol 185 mg/dL (0-200); Estimated Glomerular Filt Rate > 60; Glucose 88 mg/dL (65-110); HDL Direct 77 mg/dL; Potassium 4.1 mmol/L (3.4-5.0); Sodium 145 mmol/L (137-145); Triglycerides 40 mg/dL (<150)
[2021-08-01 11:05] LABS: Iron 143 ug/dL (37-170); LDL Cholesterol Direct 81 mg/dL; Percent Iron Saturation 49 % (20-50)
[2021-08-01 11:12] LABS: Erythrocyte Sedimentation Rate 16 mm/hr (0-20)
[2021-08-01 11:19] LABS: Hemoglobin A1C 7.7 % (<5.7)
== END 2021-08-01 08:40 | disposition home or self-care (01) ==
LOC: ANHLAB 08:41
PROVIDERS: PCP Family Medicine; Visit Provider Nurse Practitioner Family
DX: M25.50 Pain in unspecified joint (principal); R53.83 Other fatigue; D64.9 Anemia, unspecified; E10.65 Type 1 diabetes mellitus with hyperglycemia; R74.8 Abnormal levels of other serum enzymes; E61.1 Iron deficiency; Z13.220 Encounter for screening for lipoid disorders; Z13.29 Encounter for screening for other suspected endocrine disorder; E55.9 Vitamin D deficiency, unspecified; E53.8 Deficiency of other specified B group vitamins; R20.0 Anesthesia of skin; R20.2 Paresthesia of skin
CPT/HCPCS: 36415; 80053; 80061; 82306; 82607; 83036; 83540; 83550; 84443; 85025; 85652; 86038; 86140; 86430

== ENCOUNTER 2021-08-26 07:25 | Outpatient (CLI) | payer OTHER, SELFPAY ==
[2021-08-26 09:11] LABS: Free T4 Free Thyroxine 0.77 ng/mL (0.78-2.19)
== END 2021-08-26 07:26 | disposition home or self-care (01) ==
PROVIDERS: PCP Family Medicine; Visit Provider Nurse Practitioner Family
DX: R79.89 Other specified abnormal findings of blood chemistry (principal)
CPT/HCPCS: 36415; 84439; 84443

== ENCOUNTER 2022-07-21 09:06 | Outpatient (CLI) | payer OTHER, SELFPAY ==
--- NOTE | ~2022-07-21 | XR_ITS ---
EXAMINATION: XR ribs RT 2V w CXR 2V Exam Date/Time: 07/21/2022 9:19 CDT HISTORY: R07.81 - Pleurodynia, LANDED ON PTS RIGHT SIDE, PAIN Comparison: 12/03/2019. RESULT: Lines, tubes, and devices: None. Lungs and pleura: Clear. Cardiothymic silhouette: Stable. Other: No acute upper abdominal finding. Slight cortical irregularity of the right anterior sixth ri b, seen only in one view. IMPRESSION: Slight cortical irregularity of the right anterior sixth rib, may represent nondisplaced acute fractu re or for complete by point tenderness. No acute cardiopulmonary process. Reviewed, dictated and finalized at location K. IMPRESSION: Slight cortical irregularity of the right anterior sixth rib, may represent non displaced acute fracture or for complete by point tenderness. No acute cardiopu lmonary process.
== END 2022-07-21 09:07 | disposition home or self-care (01) ==
PROVIDERS: PCP Family Medicine; Visit Provider Nurse Practitioner Family
DX: R07.81 Pleurodynia (principal); R93.7 Abnormal findings on diagnostic imaging of other parts of musculoskeletal system
CPT/HCPCS: 71046; 71100

== ENCOUNTER 2022-12-12 08:46 | Emergency (ER) | payer SELFPAY ==
[2022-12-12 08:57] VITALS: BP 106/74; PULSE 92; RESP 16; TEMP 36.1; O2SAT 99
--- NOTE | 2022-12-12 09:48 | ED.URI ---
HPI - URI/Sore Throat General Chief Complaint: Upper Respiratory Infection Stated Complaint: ear pain/sore throat Time Seen by Provider: 12/12/22 09:50 Source: patient and RN notes reviewed Mode of arrival: ambulatory Limitations: no limitations History of Present Illness HPI Narrative: 37-year-old female with T1DM presented for complaint of left ear pain, sore throat for over 1 week. Endorses at the onset she had nausea and vomiting. She has been seen by PCP, tested negative for influenza and strep, given prescription for nausea medication. She states she has had difficulty tolerating p.o. due to the pain, and endorses dry mouth. She is taking Mucinex for symptoms. Denies shortness of breath, wheezing, vomiting or diarrhea, fevers or chills. MD elicited complaint: cough Related Data Home Medications Medication Instructions Recorded Confirmed buspirone 30 mg tablet 30 mg PO BID 08/25/19 12/09/22 quetiapine 300 mg tablet 300 mg PO HS 08/25/19 12/09/22 lorazepam 0.5 mg tablet (Ativan) 0.5 mg PO TID PRN Anxiety 12/03/19 12/09/22 insulin lispro 100 unit/mL See Rx Instructions .Route .COMPLEX 06/23/20 12/09/22 subcutaneous solution (Admelog U-100 Insulin lispro) insulin glargine 100 unit/mL unit subcut DIRECTED 01/03/21 12/09/22 subcutaneous solution (Lantus U-100 Insulin) fluvoxamine 100 mg tablet 100 mg PO DAILY 05/05/21 12/09/22 gabapentin 300 mg capsule 600 mg PO BID 09/14/21 12/09/22 estradiol 2 mg tablet (Estrace) 2 mg PO DAILY 12/07/21 12/09/22 Allergies Allergy/AdvReac Type Severity Reaction Status Date / Time adhesive tape Allergy Mild Rash Verified 12/12/22 09:42 Review of Systems Review of Systems: CONSTITUTIONAL: Denies malaise, chills, sweats, fever EYES: Denies visual changes, redness, or discharge ENT: Denies rhinorrhea, congestion, sinus pain CARDIOVASCULAR: Denies chest pain, palpitations, edema RESPIRATORY: Denies dyspnea GASTROINTESTINAL: Denies abdominal pain, nausea, vomiting, diarrhea SKIN: Denies rash or itching MUSCULOSKELETAL: Denies myalgia NEUROLOGIC: Denies headache PMFSH Past Medical History Medical History Achilles tendinitis, left leg Anemia Sees Dr. hernandez Anxiety BMI 23.0-23.9, adult BMI 24.0-24.9, adult BMI 24.0-24.9, adult BMI 25.0-25.9,adult Depression 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 Fibromyalgia Gastroesophageal reflux disease IBS (irritable bowel syndrome) Insulin dependent diabetes mellitus Left foot drop MRSA (methicillin resistant staph aureus) culture positive OCD (obsessive compulsive disorder) Osteoporosis Peripheral neuropathy Retinopathy Substance abuse Marijuana use daily Tobacco abuse Toenail fungus Left great toenail removed in some removed around the right toe nail great toe and 5th 1 on right foot Surgical History Surgical History H/O foot surgery H/O hysterectomy with oophorectomy H/O tubal ligation History of carpal tunnel release Right hand with ganglion cyst removal. S/P foot surgery, left Family History Family History Mother Family history of chronic obstructive pulmonary disease Atrial tachycardia Emphysema lung MAIC (mycobacterium avium-intracellulare complex) Father Acute myocardial infarction Grandparent Bone cancer Other Cerebrovascular accident Diabetes mellitus Family history of arthritis Family history of coronary artery disease Family history of malignant neoplasm Family history of malignant neoplasm of breast Social History Social History Smoking packs per day: 1 Smoking cigarettes per day: 20.0 Years smoked: 20 Smoking pack-years: 20.00 Smoking status: Current every day smoker Tobacco type: cigarettes Second hand
== END 2022-12-12 10:08 | disposition home or self-care (01) ==
PROVIDERS: Emergency Provider Nurse Practitioner Family; PCP Family Medicine
DX: H66.92 Otitis media, unspecified, left ear (principal); F17.210 Nicotine dependence, cigarettes, uncomplicated; F12.90 Cannabis use, unspecified, uncomplicated; E10.42 Type 1 diabetes mellitus with diabetic polyneuropathy; E10.319 Type 1 diabetes mellitus with unspecified diabetic retinopathy without macular edema; Z79.4 Long term (current) use of insulin; F41.9 Anxiety disorder, unspecified; F32.A Depression, unspecified; K21.9 Gastro-esophageal reflux disease without esophagitis; M79.7 Fibromyalgia; M81.0 Age-related osteoporosis without current pathological fracture; Z86.14 Personal history of Methicillin resistant Staphylococcus aureus infection
CPT/HCPCS: 99213; G0463

== ENCOUNTER 2023-01-20 10:47 | Emergency (ER) | payer OTHER, SELFPAY ==
[2023-01-20 10:48] VITALS: BP 113/88; PULSE 85; RESP 17; TEMP 36.5; O2SAT 100
[2023-01-20 10:52] LABS: Glucose Point of Care 251 mg/dl (65-105)
[2023-01-20 11:12] LABS: Basophils Percent Auto 0.3 % (0.2-1.2); Eosinophils Percent Auto 0.2 % (0-4.4); Hematocrit 38.8 % (37.0-47.0); Hemoglobin 13.3 g/dL (12.0-15.0); Immature Granulocyte Absolute 0.04 K/mm3 (0.00-0.031); Immature Granulocyte Percent A 0.3 % (0-0.5); Lymphocytes Absolute Auto 2.16 K/mm3 (0.9-3.2); Lymphocytes Percent Auto 17.1 % (18.3-44.2); Mean Corpuscular HGB Conc 34.3 g/dl (32-36); Mean Corpuscular Hemoglobin 31.5 pg (26-34); Mean Corpuscular Volume 91.9 fl (80-100); Monocytes Absolute Auto 0.6 K/mm3 (0.1-0.6); Monocytes Percent Auto 4.5 % (2.6-8.5); Neutrophils Absolute Auto 9.8 K/mm3 (1.3-6.7); Neutrophils Percent Auto 77.6 % (45.5-73.1); Platelet Count Result 210 k/mm3 (150-375); Red Blood Count 4.22 M/mm3 (4.2-5.4); Red Cell Distribution Width 12.5 % (11.5-14.5); White Blood Count 12.6 K/mm3 (4.5-10.0)
[2023-01-20 11:21] LABS: Alanine Aminotransferase 127 U/L (6-35); Albumin Level 4.3 g/dL (3.5-5.1); Alkaline Phosphatase 162 U/L (38-126); Anion Gap 4 mmol/L (8-16); Aspartate Amino Transferase 112 U/L (14-36); Bilirubin,Total 0.9 mg/dL (0.2-1.3); Blood Urea Nitrogen 22 mg/dL (7-17); Calcium 9.8 mg/dL (8.4-10.2); Carbon Dioxide 27 mmol/L (22-30); Chloride 103 mmol/L (98-107); Estimated CRCL calculation 82 ml/min; Estimated Glomerular Filt Rate > 60; Glucose 249 mg/dL (65-110); Lipase 24 U/L (23-300); Potassium 4.1 mmol/L (3.4-5.0); Sodium 134 mmol/L (137-145)
[2023-01-20 11:45] LABS: Influenza A QL RT-PCR Negative (Negative); Influenza B QL RT-PCR Negative (Negative); RSV RNA, RT-PCR Negative (Negative); SARS-CoV-2 RNA PCR Negative
[2023-01-20 12:26] LABS: Appearance Urine Cloudy (Clear); Bacteria Urine Rare /hpf; Bilirubin Urine Negative (Negative); Blood Urine Negative (Negative); Color Urine Dark Yellow (Yellow); Glucose Urine UA 2+ mg/dL (Negative); Ketones Urine 3+ mg/dL (Negative); Leukocyte Esterase Ur 1+ LEU/UL (Negative); Mucus Urine Present /lpf; Nitrate Urine Negative (Negative); Non Pathogenic Casts 0-2; Protein Urine 1+ mg/dL (Negative); RBC Urine 0-2 /hpf (0-2); Specific Grav Ur 1.029 (1.001-1.035); Squamous Epithelial Cell Urine Many /hpf (Few)
[2023-01-20 12:42] LABS: Add Urine Microscopic? YES
--- NOTE | 2023-01-20 14:29 | PC.NURSE ---
called pt twice. no answer.
== END 2023-01-20 16:04 | disposition left against medical advice (07) ==
PROVIDERS: Emergency Provider Emergency Medicine; PCP Family Medicine
DX: R11.2 Nausea with vomiting, unspecified (principal); Z20.822 Contact with and (suspected) exposure to COVID-19
CPT/HCPCS: 36415; 80053; 81001; 81025; 82948; 83690; 85025; 87086; 87637; 99199

== ENCOUNTER 2023-01-20 13:35 | Emergency (ER) | payer OTHER, SELFPAY ==
[2023-01-20 13:45] VITALS: BP 121/85; PULSE 76; RESP 22; TEMP 36.2; O2SAT 100
--- NOTE | 2023-01-20 14:05 | ED.NAVMDI ---
HPI - Nausea/Vomiting/Diarrhea General Chief complaint: Nausea/Vomiting/Diarrhea Stated complaint: vomiting Time Seen by Provider: 01/20/23 13:55 Source: patient Mode of arrival: ambulatory Limitations: no limitations History of Present Illness HPI Narrative: Patient is a 37-year-old female that presents with 3 days of nausea, vomiting, body aches, chills. Was in [place] [facility] and had blood work done but was still waiting for room after 2-1/2 hours so she left and came [facility] primary care provider called in Zoarnie but she has not picked it up or taken it. Patient states she feels like she is in DKA, but states her sugars are always very elevated. Patient also reports decreased urine output, urine is dark and foul smelling. Having decreased oral intake. Related Data Home Medications Medication Instructions Recorded Confirmed buspirone 30 mg tablet 30 mg PO BID 08/25/19 01/20/23 quetiapine 300 mg tablet 300 mg PO HS 08/25/19 01/20/23 insulin lispro 100 unit/mL See Rx Instructions .Route .COMPLEX 06/23/20 01/20/23 subcutaneous solution (Admelog U-100 Insulin lispro) insulin glargine 100 unit/mL See Rx Instructions .Route .COMPLEX 01/03/21 01/20/23 subcutaneous solution (Lantus U-100 Insulin) fluvoxamine 100 mg tablet 100 mg PO DAILY 05/05/21 01/20/23 Allergies Allergy/AdvReac Type Severity Reaction Status Date / Time adhesive tape Allergy Mild Rash Verified 01/20/23 13:52 Review of Systems Review of Systems: All systems reviewed & are unremarkable except as noted in HPI and below Constitutional: Constitutional: Reports body ache(s), Reports fatigue, Denies fever(s), Denies headache(s), Reports malaise and Denies weakness Eyes: Eyes: Denies loss of vision ENT: Denies otalgia, Denies headache(s), Denies nasal discharge, Denies sinus pain and Denies sore throat Cardiovascular: Cardiovascular: Denies chest pain, Denies irregular heart rhythm and Denies dyspnea Respiratory: Respiratory: Denies dyspnea Gastrointestinal: Gastrointestinal: Reports abdominal pain, Denies melena, Denies hematochezia, Denies diarrhea, Reports nausea and Reports vomiting Musculoskeletal: Musculoskeletal: Denies back pain, Denies myalgias and Denies arthralgias Integumentary/Breasts: Skin/Breast: Denies pruritus and Denies rash Neurologic: Denies headache(s), Denies loss of vision and Denies weakness Psychiatric: Psychiatric: Reports no additional psychiatric complaints PMFSH Past Medical History Medical History Achilles tendinitis, left leg Anemia Sees Dr. hernandez Anxiety BMI 23.0-23.9, adult BMI 24.0-24.9, adult BMI 24.0-24.9, adult BMI 25.0-25.9,adult Depression 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 Fibromyalgia Gastroesophageal reflux disease IBS (irritable bowel syndrome) Insulin dependent diabetes mellitus Left foot drop MRSA (methicillin resistant staph aureus) culture positive OCD (obsessive compulsive disorder) Osteoporosis Peripheral neuropathy Retinopathy Substance abuse Marijuana use daily Tobacco abuse Toenail fungus Left great toenail removed in some removed around the right toe nail great toe and 5th 1 on right foot Surgical History Surgical History H/O foot surgery H/O hysterectomy with oophorectomy H/O tubal ligation History of carpal tunnel release Right hand with ganglion cyst removal. S/P foot surgery, left Family History Family History Mother Family history of chronic obstructive pulmonary disease Atrial tachycardia Emphysema lung MAIC (mycobacterium avium-intracellulare complex) Father Acute myocardial infarction Grandparent Bone cancer Other Cerebrovascular accident Diabetes mellitus Family history of arthritis Family history of coronary artery diseas
== END 2023-01-20 14:21 | disposition left against medical advice (07) ==
PROVIDERS: Emergency Provider Nurse Practitioner Family; PCP Family Medicine
DX: N39.0 Urinary tract infection, site not specified (principal); E10.42 Type 1 diabetes mellitus with diabetic polyneuropathy; R79.89 Other specified abnormal findings of blood chemistry; R94.4 Abnormal results of kidney function studies; F17.210 Nicotine dependence, cigarettes, uncomplicated; F12.90 Cannabis use, unspecified, uncomplicated; F41.9 Anxiety disorder, unspecified; F32.A Depression, unspecified; E10.51 Type 1 diabetes mellitus with diabetic peripheral angiopathy without gangrene; Z79.4 Long term (current) use of insulin; M79.7 Fibromyalgia; K21.9 Gastro-esophageal reflux disease without esophagitis; M81.0 Age-related osteoporosis without current pathological fracture; E10.319 Type 1 diabetes mellitus with unspecified diabetic retinopathy without macular edema
CPT/HCPCS: 99213; G0463

== ENCOUNTER 2023-02-08 07:23 | Outpatient (CLI) | payer OTHER, SELFPAY ==
--- NOTE | ~2023-02-08 | XR_ITS ---
EXAMINATION: XR chest 2V DATE: 02/08/2023 07:51 INDICATION: Acute bronchitis, unspecified TECHNIQUE: PA and lateral views of the chest are obtained. COMPARISON: 07/21/2022 FINDINGS: The lungs are free of acute opacities. No pleural effusion or pneumothorax. The cardiomedia stinal silhouette is normal. There is mild thoracic spondylosis. IMPRESSION: 1. No acute cardiopulmonary abnormality. Reviewed, dictated and finalized at location L.
--- NOTE | ~2023-02-08 | XR_ITS ---
EXAMINATION: XR hip RT min 3V w AP pelvis INDICATION: Right hip pain TECHNIQUE: AP view the pelvis and three views of the right hip are obtained. COMPARISON: None available FINDINGS: Bone alignment is normal. There is no fracture. There is mild osteoarthritis of the hips. A phlebolith is noted in the right pelvis. IMPRESSION: 1. Mild osteoarthritis of the hips. Reviewed, dictated and finalized at location L.
[2023-02-08 07:37] LABS: Basophils Absolute Auto 0.1 K/mm3 (0.0-0.1); Basophils Percent Auto 0.9 % (0.2-1.2); Eosinophils Absolute Auto 0.4 K/mm3 (0-0.3); Eosinophils Percent Auto 5.4 % (0-4.4); Hematocrit 37.6 % (37.0-47.0); Hemoglobin 12.9 g/dL (12.0-15.0); Immature Granulocyte Absolute 0.02 K/mm3 (0.00-0.031); Immature Granulocyte Percent A 0.3 % (0-0.5); Lymphocytes Absolute Auto 2.12 K/mm3 (0.9-3.2); Lymphocytes Percent Auto 30.2 % (18.3-44.2); Mean Corpuscular HGB Conc 34.3 g/dl (32-36); Mean Corpuscular Hemoglobin 31.4 pg (26-34); Mean Corpuscular Volume 91.5 fl (80-100); Mean Platelet Volume 10.3 fl (7.4-10.4); Monocytes Absolute Auto 0.6 K/mm3 (0.1-0.6); Neutrophils Absolute Auto 3.9 K/mm3 (1.3-6.7); Neutrophils Percent Auto 55.2 % (45.5-73.1); Platelet Count Result 211 k/mm3 (150-375); Red Blood Count 4.11 M/mm3 (4.2-5.4); Red Cell Distribution Width 12.5 % (11.5-14.5)
[2023-02-08 07:49] LABS: Alanine Aminotransferase 68 U/L (6-35); Alkaline Phosphatase 128 U/L (38-126); Anion Gap 6 mmol/L (8-16); Aspartate Amino Transferase 36 U/L (14-36); Bilirubin,Total 0.6 mg/dL (0.2-1.3); Blood Urea Nitrogen 17 mg/dL (7-17); Calcium 9.3 mg/dL (8.4-10.2); Carbon Dioxide 28 mmol/L (22-30); Chloride 105 mmol/L (98-107); Estimated Glomerular Filt Rate > 60; Glucose 197 mg/dL (65-110); Sodium 139 mmol/L (137-145)
[2023-02-13 19:10] LABS: EBV Nuclear Ab Interpretation Past; EBV Virus Capsid Ag IgG Ab >750.00 U/mL (<18.00); EBV Virus Capsid Ag IgM Ab <36.00 U/mL (<36.00)
== END 2023-02-08 07:24 | disposition home or self-care (01) ==
LOC: ANHLAB 07:24
PROVIDERS: PCP Family Medicine; Visit Provider Physician Assistant Medical
DX: D72.829 Elevated white blood cell count, unspecified (principal); J20.9 Acute bronchitis, unspecified; R79.89 Other specified abnormal findings of blood chemistry; J03.01 Acute recurrent streptococcal tonsillitis; M16.11 Unilateral primary osteoarthritis, right hip
CPT/HCPCS: 36415; 71046; 73502; 80053; 85025; 86664; 86665

== ENCOUNTER 2023-02-22 07:25 | Outpatient (CLI) | payer OTHER, SELFPAY ==
--- NOTE | ~2023-02-22 | US_ITS ---
US abdomen complete EXAMINATION: US Abdomen Complete INDICATION: Abnormal lab studies. PROCEDURE: Realtime High Resolution abdomen ultrasound. COMPARISON: No prior studies for comparison FINDINGS: Gallbladder within normal limits. No gallstones, pericholecystic fluid, gallbladder wall t hickening or biliary dilatation. Common bile duct measures 3.6 mm. Liver echotexture within normal limits without focal mass. Pancreas within normal limits. Pancreati c tail is obscured by bowel gas. Spleen is unremarkeable. Renal echotexture is within normal limits bilaterally without hydronephrosis, contour deforming mass or renal stone. Right kidney measures 10.2 cm. Left kidney measures 10.3 cm. Visualized aspects of the aorta and IVC are within normal limits. Portal vein is patent. No sonograph ic [place]'s sign indicated by the technologist. IMPRESSION: 1: Normal abdominal ultrasound. Reviewed, dictated and finalized at [facility].
== END 2023-02-22 07:26 | disposition home or self-care (01) ==
LOC: ANHIMG 07:26
PROVIDERS: PCP Family Medicine; Visit Provider Physician Assistant Medical
DX: R79.89 Other specified abnormal findings of blood chemistry (principal)
CPT/HCPCS: 76700

== ENCOUNTER 2023-03-02 15:30 | Emergency (ER) | payer OTHER, SELFPAY ==
[2023-03-02 15:34] VITALS: BP 86/64; PULSE 101; RESP 16; TEMP 36.6; O2SAT 98
--- NOTE | 2023-03-02 15:46 | ED.WEAKNESS ---
HPI - Weakness General Chief complaint: Weakness Stated complaint: Dizziness/Weakness Time Seen by Provider: 03/02/23 15:40 Source: patient Mode of arrival: ambulatory Limitations: no limitations History of Present Illness HPI Narrative: Rashad is a 37-year-old female patient presenting to the clinic today with complaints of lethargy, weakness, dizziness, near syncopal x3 weeks. She reports that she tested positive for strep and mono 3 weeks ago. Had finished her antibiotics for strep. States that she has been trying to push fluids but her pressure has been low with systolic pressures in the 80s. She is also a type 1 diabetic. Blood sugar was checked in the clinic and was 198. Patient denies any shortness of breath or chest pain. She denies any known fever or chills but does state that she has body aches. Related Data Home Medications Medication Instructions Recorded Confirmed buspirone 30 mg tablet 30 mg PO BID 08/25/19 02/07/23 insulin lispro 100 unit/mL See Rx Instructions .Route .COMPLEX 06/23/20 02/07/23 subcutaneous solution (Admelog U-100 Insulin lispro) insulin glargine 100 unit/mL See Rx Instructions .Route .COMPLEX 01/03/21 02/07/23 subcutaneous solution (Lantus U-100 Insulin) fluvoxamine 100 mg tablet 100 mg PO DAILY 05/05/21 02/07/23 estradiol 2 mg tablet 2 mg PO .QD 02/07/23 02/07/23 lorazepam 0.5 mg tablet 0.5 mg PO DAILY PRN 02/07/23 02/07/23 quetiapine 400 mg tablet (Seroquel) 400 mg PO QHS 02/07/23 02/07/23 Allergies Allergy/AdvReac Type Severity Reaction Status Date / Time adhesive tape Allergy Mild Rash Verified 03/02/23 15:36 Review of Systems Review of Systems: Pertinent positives per HPI. Patient denies any fever, rash, headache, visual changes, dizziness, cough, shortness of breath, chest pain, palpitations, nausea, vomiting, diarrhea, constipation, abdominal pain, or any urinary issues. [facility] Past Medical History Medical History Achilles tendinitis, left leg Anemia Sees Dr. 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 Fibromyalgia Gastroesophageal reflux disease IBS (irritable bowel syndrome) Insulin dependent diabetes mellitus Left foot drop MRSA (methicillin resistant staph aureus) culture positive OCD (obsessive compulsive disorder) Osteoporosis Peripheral neuropathy Retinopathy Substance abuse Marijuana use daily Tobacco abuse Toenail fungus Left great toenail removed in some removed around the right toe nail great toe and 5th 1 on right foot Surgical History Surgical History H/O foot surgery H/O hysterectomy with oophorectomy H/O tubal ligation History of carpal tunnel release Right hand with ganglion cyst removal. S/P foot surgery, left Family History Family History Mother Family history of chronic obstructive pulmonary disease Atrial tachycardia Emphysema lung MAIC (mycobacterium avium-intracellulare complex) Father Acute myocardial infarction Grandparent Bone cancer Other Cerebrovascular accident Diabetes mellitus Family history of arthritis Family history of coronary artery disease Family history of malignant neoplasm Family history of malignant neoplasm of breast Social History Social History Smoking packs per day: 1 Smoking cigarettes per day: 20.0 Years smoked: 20 Smoking pack-years: 20.00 Smoking status: Current every day smoker Tobacco type: cigarettes Second hand tobacco smoke exposure: Yes Additional smoking assessment comments: She has smoked a pack a cigarettes a day for 25 years Alcohol intake: never Drinks per week: 0
[2023-03-02 15:48] LABS: Glucose Point of Care 198 mg/dl (65-105)
== END 2023-03-02 16:00 | disposition short-term general hospital (02) ==
PROVIDERS: Emergency Provider Nurse Practitioner Family; PCP Family Medicine
DX: E86.0 Dehydration (principal); R53.1 Weakness; I95.9 Hypotension, unspecified; R53.83 Other fatigue; Z86.19 Personal history of other infectious and parasitic diseases; F17.210 Nicotine dependence, cigarettes, uncomplicated; M79.7 Fibromyalgia; K21.9 Gastro-esophageal reflux disease without esophagitis; M81.0 Age-related osteoporosis without current pathological fracture; E10.42 Type 1 diabetes mellitus with diabetic polyneuropathy; Z79.4 Long term (current) use of insulin; E10.51 Type 1 diabetes mellitus with diabetic peripheral angiopathy without gangrene; I70.209 Unspecified atherosclerosis of native arteries of extremities, unspecified extremity; F41.9 Anxiety disorder, unspecified; F32.A Depression, unspecified
CPT/HCPCS: 82948; 99215; G0463

== ENCOUNTER 2023-03-02 16:13 | Observation (INO) | payer OTHER, SELFPAY ==
--- NOTE | ~2023-03-02 | XR_ITS ---
EXAMINATION: XR chest 2V DATE: 03/02/2023 17:55 INDICATION: Cough and shortness of breath TECHNIQUE: PA and lateral views of the chest were obtained. COMPARISON: Chest radiograph dated 02/08/2023 FINDINGS: The lungs remain clear with no focal airspace opacities, pulmonary edema, pleural effusion or pneumot horax. The cardiomediastinal silhouette is normal. Moderate thoracic spondylosis with chronic mild an terior wedging of a couple mid thoracic vertebral bodies. IMPRESSION: 1. No acute cardiopulmonary disease. Reviewed, dictated and finalized at location A.
[2023-03-02 16:31] VITALS: BP 122/87; PULSE 88; RESP 16; O2SAT 98
[2023-03-02 16:48] VITALS: PULSE 82
--- NOTE | 2023-03-02 17:28 | ED.DIZZY ---
HPI - Dizziness General Chief Complaint: Dizziness Stated Complaint: feeling sick Time Seen by Provider: 03/02/23 17:07 History of Present Illness HPI Narrative: Patient is a 37-year-old female with a history of type 1 diabetes presenting with lightheadedness. Patient states that she has been diagnosed multiple times with strep throat in the last couple of months. States that she has also had mono. States that she continues to have throat pain, cough, shortness of breath and feels generally unwell. Patient states that for the last week or so she has been having episodes of lightheadedness and tunnel vision. Denies chest pain, palpitations, leg swelling. Denies fevers, abdominal pain, dysuria. States that she has had several episodes of emesis and diarrhea. Related Data Home Medications Medication Instructions Recorded Confirmed buspirone 30 mg tablet 30 mg PO BID 08/25/19 03/02/23 insulin lispro 100 unit/mL See Rx Instructions .Route .COMPLEX 06/23/20 03/02/23 subcutaneous solution (Admelog U-100 Insulin lispro) insulin glargine 100 unit/mL See Rx Instructions .Route .COMPLEX 01/03/21 03/02/23 subcutaneous solution (Lantus U-100 Insulin) fluvoxamine 100 mg tablet 150 mg PO BID 05/05/21 03/02/23 estradiol 2 mg tablet 2 mg PO .QD 02/07/23 03/02/23 lorazepam 0.5 mg tablet 0.5 mg PO TID PRN Anxiety 02/07/23 03/02/23 quetiapine 400 mg tablet (Seroquel) 400 mg PO QHS 02/07/23 03/02/23 fluconazole 150 mg tablet 150 mg PO DAILY PRN uti 03/02/23 03/02/23 (Diflucan) Allergies Allergy/AdvReac Type Severity Reaction Status Date / Time adhesive tape Allergy Mild Rash Verified 03/02/23 15:36 Review of Systems Review of Systems: All systems reviewed & are unremarkable except as noted in HPI and below PMFSH Past Medical History Medical History Achilles tendinitis, left leg Anemia Sees Dr. hernandez Anxiety BMI 23.0-23.9, adult BMI 24.0-24.9, adult BMI 24.0-24.9, adult BMI 25.0-25.9,adult Depression 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 Fibromyalgia Gastroesophageal reflux disease IBS (irritable bowel syndrome) Insulin dependent diabetes mellitus Left foot drop MRSA (methicillin resistant staph aureus) culture positive OCD (obsessive compulsive disorder) Osteoporosis Peripheral neuropathy Retinopathy Substance abuse Marijuana use daily Tobacco abuse Toenail fungus Left great toenail removed in some removed around the right toe nail great toe and 5th 1 on right foot Surgical History Surgical History H/O foot surgery H/O hysterectomy with oophorectomy H/O tubal ligation History of carpal tunnel release Right hand with ganglion cyst removal. S/P foot surgery, left Family History Family History Mother Family history of chronic obstructive pulmonary disease Atrial tachycardia Emphysema lung MAIC (mycobacterium avium-intracellulare complex) Father Acute myocardial infarction Grandparent Bone cancer Other Cerebrovascular accident Diabetes mellitus Family history of arthritis Family history of coronary artery disease Family history of malignant neoplasm Family history of malignant neoplasm of breast Social History Social History Smoking packs per day: 1 Smoking cigarettes per day: 20.0 Years smoked: 20 Smoking pack-years: 20.00 Smoking status: Current every day smoker Tobacco type: cigarettes Second hand tobacco smoke exposure: Yes Additional smoking assessment comments: She has smoked a pack a cigarettes a day for 25 years Alcohol intake: never Drinks per week: 0 Substance use: current Substance use type: marijuana Other substance usage details: Uses marijuana every day. Last use: DAILY Lack of T
[2023-03-02] MEDS: SODIUM CHLORIDE 0.9% IV 1,000 ML 999 ML IV CONT ×2 (17:53→19:28)
[2023-03-02 17:55] LABS: Basophils Absolute Auto 0.1 K/mm3 (0.0-0.1); Basophils Percent Auto 0.7 % (0.2-1.2); Eosinophils Absolute Auto 0.3 K/mm3 (0-0.3); Hematocrit 37.6 % (37.0-47.0); Hemoglobin 12.8 g/dL (12.0-15.0); Immature Granulocyte Absolute 0.01 K/mm3 (0.00-0.031); Immature Granulocyte Percent A 0.1 % (0-0.5); Lymphocytes Absolute Auto 3.13 K/mm3 (0.9-3.2); Lymphocytes Percent Auto 37.6 % (18.3-44.2); Mean Corpuscular Hemoglobin 30.7 pg (26-34); Mean Corpuscular Volume 90.2 fl (80-100); Mean Platelet Volume 10.2 fl (7.4-10.4); Monocytes Absolute Auto 0.5 K/mm3 (0.1-0.6); Monocytes Percent Auto 6.3 % (2.6-8.5); Neutrophils Absolute Auto 4.3 K/mm3 (1.3-6.7); Neutrophils Percent Auto 51.3 % (45.5-73.1); Platelet Count Result 196 k/mm3 (150-375); Red Blood Count 4.17 M/mm3 (4.2-5.4); Red Cell Distribution Width 12.1 % (11.5-14.5); White Blood Count 8.3 K/mm3 (4.5-10.0)
[2023-03-02] MEDS: KETOROLAC 15 MG/ML VIAL (*BKC) IV PUSH (17:56)
[2023-03-02 18:12] LABS: Alanine Aminotransferase 16 U/L (6-35); Albumin Level 4.1 g/dL (3.5-5.1); Alkaline Phosphatase 76 U/L (38-126); Anion Gap 3 mmol/L (8-16); Aspartate Amino Transferase 21 U/L (14-36); Bilirubin,Total 0.3 mg/dL (0.2-1.3); Blood Urea Nitrogen 20 mg/dL (7-17); Calcium 9.5 mg/dL (8.4-10.2); Carbon Dioxide 33 mmol/L (22-30); Chloride 103 mmol/L (98-107); Estimated CRCL calculation 61 ml/min; Estimated Glomerular Filt Rate 56; Glucose 100 mg/dL (65-110); Lipase 29 U/L (23-300); Magnesium 2.1 mg/dL (1.6-2.3); Potassium 3.6 mmol/L (3.4-5.0); Sodium 139 mmol/L (137-145)
[2023-03-02 18:13] LABS: Strep Group A RT-PCR DETECTED (Negative)
[2023-03-02 18:13] LABS: Lactic Acid Reflex 0.8 mmol/L (0.7-2.0)
[2023-03-02 18:17] LABS: Appearance Urine Turbid (Clear); Bacteria Urine 4+ /hpf; Bilirubin Urine Negative (Negative); Blood Urine Trace (Negative); Color Urine Dark Yellow (Yellow); Glucose Urine UA 3+ mg/dL (Negative); Hyaline Casts Urine Present /lpf; Ketones Urine Trace mg/dL (Negative); Leukocyte Esterase Ur 2+ LEU/UL (Negative); Nitrate Urine Negative (Negative); Non Pathogenic Casts >20; Protein Urine Trace mg/dL (Negative); RBC Urine 0-2 /hpf (0-2); Squamous Epithelial Cell Urine Many /hpf (Few); WBC Urine >100 /hpf; pH Urine 5.5 (5.0-9.0)
[2023-03-02 18:18] LABS: Add Urine Microscopic? YES
[2023-03-02 18:26] LABS: Influenza A QL RT-PCR Negative (Negative); Influenza B QL RT-PCR Negative (Negative); RSV RNA, RT-PCR Negative (Negative); SARS-CoV-2 RNA PCR Negative (Negative)
[2023-03-02 19:13] VITALS: BP 106/76; PULSE 81; RESP 20; TEMP 37.2; O2SAT 97
[2023-03-02] MEDS: HYDROmorphone HCL INJ (*CRX) 1 MG/ML SYR 0.5 MG IV PUSH ×2 (19:28→22:58)
--- NOTE | 2023-03-02 19:36 | PM.IMHP ---
H&P: HPI History of Present Illness Date/Time: 03/02/23 19:36 Chief Complaint: dizziness Narrative: this is a 37-year-old female with past medical history significant for type 1 diabetes mellitus, pump insulin on, patient recently diagnosed with mononucleosis, strep throat, completed outpatient course of Augmentin, tobacco dependence, fibromyalgia, left footdrop, gastroesophageal reflux disease, diabetic peripheral neuropathy, diabetic retinopathy. patient presents to the emergency room due to dizziness, poor per orally intake, chills, generalized malaise, generalized body aches and pains, lower back pain. preliminary workup was significant for urinalysis with numerous WBCs present in the urine, beta hydroxybutyrate was 0.1, BUN 33 creatinine 1.1. A chest x-ray was reported as: EXAMINATION: XR chest 2V DATE: 03/02/2023 17:55 INDICATION: Cough and shortness of breath TECHNIQUE: PA and lateral views of the chest were obtained. COMPARISON: Chest radiograph dated 02/08/2023 FINDINGS: The lungs remain clear with no focal airspace opacities, pulmonary edema, pleural effusion or pneumothorax. The cardiomediastinal silhouette is normal. Moderate thoracic spondylosis with chronic mild anterior wedging of a couple mid thoracic vertebral bodies. IMPRESSION: 1. No acute cardiopulmonary disease. Review of Systems Review of Systems: generalized malaise, poor appetite, dizziness, chills, lower back pain, body aches and pains. Constitutional: Constitutional: Reports chills, Reports fatigue, Reports malaise, Denies night sweats, Reports poor appetite and Reports weakness Eyes: Eyes: Denies change in vision ENT: Denies dysphagia, Reports dizziness and Denies odynophagia Cardiovascular: Cardiovascular: Denies chest pain, Denies leg edema, Reports lightheadedness and Denies palpitations Respiratory: Respiratory: Denies chest congestion, Denies cough and Denies dyspnea Gastrointestinal: Gastrointestinal: Denies abdominal pain, Denies dyspepsia, Denies heartburn, Denies diarrhea, Denies nausea and Denies vomiting Genitourinary: Genitourinary: Reports dysuria Musculoskeletal: Musculoskeletal: Reports back pain and Reports myalgias Integumentary/Breasts: Skin/Breast: Denies rash Neurologic: Reports other ( Left footdrop chronic) Psychiatric: Psychiatric: Reports no additional psychiatric complaints and Reports as per HPI Endocrine: Endocrine: Denies cold intolerance, Denies flushing, Denies heat intolerance, Denies polyphagia, Denies polydipsia, Denies polyuria, Denies palpitations and Reports other ( uncontrolled sugars on insulin pump) Hematologic/Lymphatic: Hematologic/Lymphatic: Reports no additional hematologic/lymphatic complaints and Reports as per HPI Allergic/Immunologic: Allergic/Immunologic: Reports no additional allergic/immunologic complaints and Reports as per HPI PMFSH Past Medical History Medical History Achilles tendinitis, left leg Anemia Sees Dr. hernandez Anxiety BMI 23.0-23.9, adult BMI 24.0-24.9, adult BMI 24.0-24.9, adult BMI 25.0-25.9,adult Depression 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 Fibromyalgia Gastroesophageal reflux disease IBS (irritable bowel syndrome) Insulin dependent diabetes mellitus Left foot drop MRSA (methicillin resistant staph aureus) culture positive OCD (obsessive compulsive disorder) Osteoporosis Peripheral neuropathy Retinopathy Substance abuse Marijuana use daily Tobacco abuse Toenail fungus Left great toenail removed in some removed around the right toe nail great toe and 5th 1 on right foot Surgical History Surgical History H/O foot surgery H/O hysterectomy with oophorectomy H/O tubal ligation History of carpal tunnel release Right hand with ganglion cyst removal. S/P foot surgery, left Family History Family History
[2023-03-02] MEDS: AMPICILLIN SULB 1.5 GM/NS 50ML 1.5 GM/50 ML VIAL IVPB (19:43)
--- NOTE | 2023-03-02 20:20 | PC.NURSE ---
Patient requested a nicotine patch. Notified Dr. Goss who was ok with patient having a nicotine patch.
[2023-03-02] MEDS: NICOTINE (*PBKC) 14 MG PATCH 1 PATCH TRANSDERM (20:33)
[2023-03-02 21:14] VITALS: BP 111/85; PULSE 74; RESP 16; TEMP 36.6; O2SAT 99
[2023-03-02 21:56] VITALS: BMI 25.8
[2023-03-02 21:59] VITALS: BP 122/82; PULSE 80; RESP 16; TEMP 36.8; O2SAT 100
--- NOTE | 2023-03-02 22:17 | PC.NURSE ---
Patient home medications counted and verified with Margarita ZAMAN. Home medication slip filled out- 1 copy placed in security bag, one copy placed in pt chart. Medications placed in safe.
--- NOTE | 2023-03-02 22:26 | PC.NURSE ---
called MD Shine for pain relief of patient admitted for mono, also pt uses insulin pump, but pump broke, so pt placed on standby, pt may need sliding scale insulin until pump fixed.
--- NOTE | 2023-03-02 22:32 | PC.NURSE ---
discussed pt insulin pump situation with MD Shine, and pt require for pain medication. Awaiting orders from MD Shine.
[2023-03-02 22:34] LABS: Glucose Point of Care 152 mg/dl (65-105)
[2023-03-02 22:39] VITALS: BP 122/82; PULSE 80; RESP 16; TEMP 36.8; O2SAT 100
[2023-03-02] MEDS: LORazepam (*CRX) 0.5 MG TABLET PO (22:58)
--- NOTE | 2023-03-02 23:11 | PC.NURSE ---
pt home medication fluvoxamine 150 mg po capsule sent to pharmacy for identification, medication is non-formulary, ok'd to use home medication per MD Shine.
--- NOTE | 2023-03-02 23:44 | PHAR ---
Verified HOME MED- Fluvoxamine Mal 150 MG ER CAP 1 cap PO twice a day in pharmacy and sent back to [facility]-surg
[2023-03-02] MEDS: busPIRone HCL 10 MG TABLET 30 MG PO (23:52)
[2023-03-02] MEDS: QUEtiapine FUMARATE 100 MG TABLET 400 MG PO (23:53)
[2023-03-03 05:45] VITALS: BP 109/83; PULSE 101; RESP 16; TEMP 36.3; O2SAT 100
[2023-03-03 06:00] LABS: Glucose Point of Care 387 mg/dl (65-105)
[2023-03-03] MEDS: INSULIN ASPART (*BKC) 100 UNITS/ML SUB-Q ×3 (06:14→17:11)
[2023-03-03] MEDS: HYDROmorphone HCL INJ (*CRX) 1 MG/ML SYR 0.5 MG IV PUSH ×2 (06:16→09:51)
--- NOTE | 2023-03-03 06:21 | PC.NURSE ---
started sliding scale bs 387 this AM.
[2023-03-03 08:05] LABS: Glucose Point of Care 331 mg/dl (65-105)
[2023-03-03] MEDS: LORazepam (*CRX) 0.5 MG TABLET PO ×3 (08:27→21:20)
[2023-03-03] MEDS: busPIRone HCL 10 MG TABLET 30 MG PO ×2 (08:28→20:27)
[2023-03-03] MEDS: estradioL 1 MG TABLET 2 MG PO (08:28)
[2023-03-03] MEDS: INSULIN ASPART (*BKC) 100 UNITS/ML 7 UNITS SUB-Q ×2 (08:29→11:59)
[2023-03-03] MEDS: NICOTINE (*PBKC) 21 MG PATCH 1 PATCH TRANSDERM (08:34)
--- NOTE | 2023-03-03 11:23 | PM.IMPN ---
Progress Note: A&P Assessment and Plan (1) UTI (urinary tract infection): Code(s): N39.0 - Urinary tract infection, site not specified Status: Acute Assessment and Plan: unasyn. follow urine culture. treated with bactrim recently. (2) Acute dehydration: Code(s): E86.0 - Dehydration Status: Inactive Assessment and Plan: likely to be secondary to pre renal azotemia IV fluids (3) Diabetes type 1, uncontrolled: Qualifiers: Glycemic state: with hyperglycemia Qualified Code(s): E10.65 - Type 1 diabetes mellitus with hyperglycemia Code(s): E10.65 - Type 1 diabetes mellitus with hyperglycemia Status: Chronic Assessment and Plan: patient will continue to use her insulin pump which broke down last night. will transition to lantus lispro will cover with additional insulin sliding scale as needed Accu-Cheks AC and HS carb consistent diet (4) Emphysema of lung: Code(s): J43.9 - Emphysema, unspecified Status: Chronic Assessment and Plan: breathing treatments q.6 p.r.n. not actively wheezing (5) Tobacco dependence: Code(s): F17.200 - Nicotine dependence, unspecified, uncomplicated Status: Acute Assessment and Plan: nicotine patch as needed (6) LAURENCE (acute kidney injury): Code(s): N17.9 - Acute kidney failure, unspecified Status: Acute Assessment and Plan: continue to monitor likely prerenal azotemia (7) Fibromyalgia: Code(s): M79.7 - Fibromyalgia Status: Chronic Assessment and Plan: continue home meds follow-up in outpatient setting add flexeril (8) Left foot drop: Code(s): M21.372 - Foot drop, left foot Status: Chronic Assessment and Plan: fall precautions Plan strep throat positive, recurrent. reiniaite unasyn. ent to consult. thrush possibly in esophageal area, risk factor antibitoics use and undderlying diabetes. will give fluconazole. Subjective Date/time seen: 03/03/23 11:23 Interval history: pt here with ongoing sore throat and dizziness, lightheadedness, hypotension. recurrent strep throat or sore throat despite adequate treatment with antibitoics. no fever, chills. Review of Systems Review of Systems: All systems reviewed & are unremarkable except as noted in HPI and below Exam Narrative: GENERAL: Appears comfortable, not in acute distress HEAD: Normocephalic, atraumatic. EYES: PERRLA and EOMI. ENT: Nares clear, no rhinorrhea or epistaxis.? Mucous membranes moist. no tonsillar exudates or erythema, whitish patches noted on his tongue NECK: Supple. mildly tender with no definitive lymphadenopathy CHEST: Scattered bilateral wheezing, crackles in left base HEART: Regular rate and rhythm ABDOMEN: Soft, nontender, nondistended, insulin pump in place EXTREMITIES: Normal range of motion.? No edema. SKIN: Warm, dry, no rash. NEURO: No focal deficits.? Alert and oriented x3. PSYCH: Normal mood and affect. Objective Data Vital Signs Vital Signs: Vital Signs - 24 hr 03/02/23 16:31 03/02/23 16:48 03/02/23 19:13 Temperature 98.9 F Pulse Rate 88 82 81 Respiratory Rate 16 20 Blood Pressure 122/87 106/76 Pulse Oximetry 98 97 Oxygen Delivery Room Air 03/02/23 21:14 03/02/23 21:59 03/02/23 22:39 Temperature 98 F 98.3 F 98.3 F Pulse Rate 74 80 80 Respiratory Rate 16 16 16 Blood Pressure 111/85 122/82 122/82 Pulse Oximetry 99 100 100 Oxygen Delivery Room Air 03/03/23 05:45 03/03/23 08:20 Temperature 97.4 F L Pulse Rate 101 H Respiratory Rate 16 Blood Pressure 109/83 Pulse Oximetry 100 Oxygen Delivery Room Air Intake/Output Intake/Output: Intake & Output 02/28/23 03/01/23 03/02/23 03/03/23 23:59 23:59 23:59 23:59 Intake Total 2049 Balance 2049 550 Meds/Results Medications: Active Medications Generic Name Dose Route Start Last Admin Trade Name Freq PRN Reason S
[2023-03-03 11:30] LABS: Glucose Point of Care 92 mg/dl (65-105)
[2023-03-03] MEDS: CYCLOBENZAPRINE HCL 5 MG TABLET PO ×2 (11:48→21:21)
[2023-03-03] MEDS: SODIUM CHLORIDE 0.9% IV 1,000 ML 75 ML IV CONT (11:49)
[2023-03-03] MEDS: FLUCONAZOLE 400 MG/NACL 200 ML 400 MG/200 ML BAG 100 MG IVPB (11:49)
[2023-03-03 11:53] VITALS: BMI 25.8
[2023-03-03] MEDS: INSULIN GLARGINE (*BKC) 100 UNITS/ML 20 UNITS SUB-Q (11:56)
[2023-03-03 13:30] VITALS: BP 103/61; PULSE 86; RESP 16; TEMP 36.6; O2SAT 100
[2023-03-03] MEDS: AMPICILLIN SULB 1.5 GM/NS 50ML 1.5 GM/50 ML VIAL IVPB ×3 (14:03→23:37)
[2023-03-03 14:25] LABS: Glucose Point of Care 49 mg/dl (65-105)
[2023-03-03 14:25] LABS: Glucose Point of Care 71 mg/dl (65-105)
[2023-03-03] MEDS: HYDROcodone/acetaminophen (*CRX) 5-325 MG TABLET 1 TAB PO ×3 (14:54→23:36)
[2023-03-03 17:05] LABS: Glucose Point of Care 92 mg/dl (65-105)
[2023-03-03] MEDS: NYSTATIN 100,000 UNITS/ML SUSP 5 ML ORAL.SUSP PO ×2 (17:16→20:26)
--- NOTE | 2023-03-03 17:20 | WPDCN ---
Assessment and Plan Assessment and plan (1) Acute recurrent streptococcal tonsillitis: Code(s): J03.01 - Acute recurrent streptococcal tonsillitis Status: Acute Assessment and Plan: Patient should see me as scheduled on 03/25/2023, standard treatment for mono well in patient, please call with any questions. Would not perform tonsillectomy while in-patient given increased risk of bleeding with current infection. HPI Data of Consult Date/Time: 03/03/23 17:20 Requesting Physician: Lou Shine MD Primary Care Provider: Madhav Lucero MD Consult Narrative Narrative: Sole Grullon is a 37 year old female with type 1 diabetes. History recurrent on chronic tonsillitis as well. Currently hospitalized with mono infection. Already has an appointment set up with me 03/25/2023 Review of Systems Review of Systems: All systems reviewed & are unremarkable except as noted in HPI and below PMFSH Past Medical History Medical History Achilles tendinitis, left leg Anemia Sees Dr. hernandez Anxiety BMI 23.0-23.9, adult BMI 24.0-24.9, adult BMI 24.0-24.9, adult BMI 25.0-25.9,adult Depression 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 Fibromyalgia Gastroesophageal reflux disease IBS (irritable bowel syndrome) Insulin dependent diabetes mellitus Left foot drop MRSA (methicillin resistant staph aureus) culture positive OCD (obsessive compulsive disorder) Osteoporosis Peripheral neuropathy Retinopathy Substance abuse Marijuana use daily Tobacco abuse Toenail fungus Left great toenail removed in some removed around the right toe nail great toe and 5th 1 on right foot Surgical History Surgical History H/O foot surgery H/O hysterectomy with oophorectomy H/O tubal ligation History of carpal tunnel release Right hand with ganglion cyst removal. S/P foot surgery, left Family History Family History Mother Family history of chronic obstructive pulmonary disease Atrial tachycardia Emphysema lung MAIC (mycobacterium avium-intracellulare complex) Father Acute myocardial infarction Grandparent Bone cancer Other Cerebrovascular accident Diabetes mellitus Family history of arthritis Family history of coronary artery disease Family history of malignant neoplasm Family history of malignant neoplasm of breast Social History Social History Smoking packs per day: 1 Smoking cigarettes per day: 20.0 Years smoked: 20 Smoking pack-years: 20.00 Smoking status: Current every day smoker Tobacco type: cigarettes Second hand tobacco smoke exposure: Yes Additional smoking assessment comments: She has smoked a pack a cigarettes a day for 25 years Alcohol intake: never Drinks per week: 0 Substance use: current Substance use type: marijuana Other substance usage details: Uses marijuana every day. Last use: DAILY Lack of Transportation: No Lack of Food: Never True Current Housing: I Have Housing Concerned About Future Housing: No Difficulty Paying Gas/Electric Bills: No Difficulty Paying for Meds: No Currently Unemployed: No Education: High School Diploma/GED Difficulty w/ Childcare or Family Care: No Living arrangements: with family Additional living arrangements comments: With her . She has 2 children. Patient reports that she does not have a power of trial attorney. 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
--- NOTE | 2023-03-03 19:38 | PC.NURSE ---
called JUDIT Grier pt requiring pain medication.
[2023-03-03 19:57] VITALS: O2SAT 100
--- NOTE | 2023-03-03 20:04 | PC.NURSE ---
called MD Shine for pt regarding requires for pain medication, awaiting call back
[2023-03-03] MEDS: QUEtiapine FUMARATE 100 MG TABLET 400 MG PO (20:27)
--- NOTE | 2023-03-03 20:49 | PC.NURSE ---
discussed pt c/o pain 06/26 generalized body aches with JUDIT Grier, JUDIT Grier to assess and order pain medication as indicated
[2023-03-03 20:52] LABS: Glucose Point of Care 112 mg/dl (65-105)
[2023-03-03 21:14] VITALS: BP 116/80; PULSE 79; RESP 20; TEMP 36.1; O2SAT 100
[2023-03-04] MEDS: SODIUM CHLORIDE 0.9% IV 1,000 ML 75 ML IV CONT (01:24)
[2023-03-04] MEDS: HYDROcodone/acetaminophen (*CRX) 5-325 MG TABLET 1 TAB PO ×3 (03:53→12:16)
[2023-03-04] MEDS: AMPICILLIN SULB 1.5 GM/NS 50ML 1.5 GM/50 ML VIAL IVPB ×2 (05:12→12:16)
[2023-03-04 06:00] VITALS: BP 122/80; PULSE 85; RESP 18; TEMP 35.8; O2SAT 100
[2023-03-04 07:36] LABS: Glucose Point of Care 157 mg/dl (65-105)
[2023-03-04] MEDS: INSULIN ASPART (*BKC) 100 UNITS/ML SUB-Q ×2 (08:24→12:15)
[2023-03-04] MEDS: busPIRone HCL 10 MG TABLET 30 MG PO (08:26)
[2023-03-04] MEDS: CYCLOBENZAPRINE HCL 5 MG TABLET PO (08:26)
[2023-03-04] MEDS: estradioL 1 MG TABLET 2 MG PO (08:26)
[2023-03-04] MEDS: LORazepam (*CRX) 0.5 MG TABLET PO ×2 (08:27→12:16)
[2023-03-04] MEDS: FLUCONAZOLE 200 MG/NACL 100 ML 200 MG/100 ML BAG 100 MG IVPB (08:28)
[2023-03-04] MEDS: NYSTATIN 100,000 UNITS/ML SUSP 5 ML ORAL.SUSP PO ×2 (08:28→12:16)
[2023-03-04] MEDS: INSULIN GLARGINE (*BKC) 100 UNITS/ML 10 UNITS SUB-Q (08:28)
[2023-03-04] MEDS: NICOTINE (*PBKC) 21 MG PATCH 1 PATCH TRANSDERM (08:41)
--- NOTE | 2023-03-04 11:25 | PM.DS ---
DS: Admitting Diagnosis Discharge Date March 04, 2023 Admitting Diagnosis strep throat, UTI DS: Discharge Diagnosis Discharge Diagnosis (1) UTI (urinary tract infection): Code(s): N39.0 - Urinary tract infection, site not specified Status: Acute Assessment and Plan: unasyn. follow urine culture. treated with bactrim recently. (2) Acute dehydration: Code(s): E86.0 - Dehydration Status: Inactive Assessment and Plan: likely to be secondary to pre renal azotemia IV fluids (3) Diabetes type 1, uncontrolled: Qualifiers: Glycemic state: with hyperglycemia Qualified Code(s): E10.65 - Type 1 diabetes mellitus with hyperglycemia Code(s): E10.65 - Type 1 diabetes mellitus with hyperglycemia Status: Chronic Assessment and Plan: patient will continue to use her insulin pump which broke down last night. will transition to lantus lispro will cover with additional insulin sliding scale as needed Accu-Cheks AC and HS carb consistent diet (4) Emphysema of lung: Code(s): J43.9 - Emphysema, unspecified Status: Chronic Assessment and Plan: breathing treatments q.6 p.r.n. not actively wheezing (5) Tobacco dependence: Code(s): F17.200 - Nicotine dependence, unspecified, uncomplicated Status: Acute Assessment and Plan: nicotine patch as needed (6) LAURENCE (acute kidney injury): Code(s): N17.9 - Acute kidney failure, unspecified Status: Acute Assessment and Plan: continue to monitor likely prerenal azotemia (7) Fibromyalgia: Code(s): M79.7 - Fibromyalgia Status: Chronic Assessment and Plan: continue home meds follow-up in outpatient setting add flexeril (8) Left foot drop: Code(s): M21.372 - Foot drop, left foot Status: Chronic Assessment and Plan: fall precautions Plan strep throat positive, recurrent. reiniaite unasyn. ent to consult. thrush possibly in esophageal area, risk factor antibitoics use and undderlying diabetes. will give fluconazole. DS: Summary Hospital Course Hospital Course: admitted for strep throat UTI. IV antibiotic transition to oral on discharge. Follow up ENT who has she will likely need to have tonsils removed. Time Spent with Patient Time attestation: Total time spent providing and/or coordinating discharge services: Exam Narrative: GENERAL: Appears comfortable, not in acute distress HEAD: Normocephalic, atraumatic. EYES: PERRLA and EOMI. ENT: Nares clear, no rhinorrhea or epistaxis.? Mucous membranes moist. no tonsillar exudates or erythema, whitish patches noted on his tongue NECK: Supple. mildly tender with no definitive lymphadenopathy CHEST: Scattered bilateral wheezing, crackles in left base HEART: Regular rate and rhythm ABDOMEN: Soft, nontender, nondistended, insulin pump in place EXTREMITIES: Normal range of motion.? No edema. SKIN: Warm, dry, no rash. NEURO: No focal deficits.? Alert and oriented x3. PSYCH: Normal mood and affect. DS: Data Data Completed and Pending Labs on day of discharge: Labs from last 24 hours 03/04/23 03/03/23 03/03/23 07:34 20:22 16:51 POC Capillary Glucose 157 H 112 H 92 03/03/23 03/03/23 03/03/23 14:21 14:01 11:24 POC Capillary Glucose 71 49 L* 92 Discharge Plan Discharge Attending physician on discharge: Lion Hinojosa Consulting providers: Didier Lance Discharging Clinician: Lion Hinojosa Patient Disposition: Home, Self-Care Activity: no preference Diet: as tolerated Patient Instructions: Antibiotic Form, How to Stop Smoking (DC) Stand Alone Forms: General Discharge Information Follow-up/Referrals: Didier Lance MD [Physician] - Discharge Medications: New hydrocodone-acetaminophen 5-325 mg Tablet 1 tablet PO Q4H PRN (Reason: Pain Rated 4-6) 5 Days Qty: 20 0RF amoxicillin-pot clavulanate 875-125 m
[2023-03-04 11:51] LABS: Glucose Point of Care 161 mg/dl (65-105)
== END 2023-03-04 13:30 | disposition home or self-care (01) ==
LOC: ANHED 17:12 → ANH3MEDSUR 22:09
PROVIDERS: Admitting Provider Internal Medicine; Emergency Provider Emergency Medicine; PCP Family Medicine; Visit Provider Chiropractor
DX: N39.0 Urinary tract infection, site not specified (principal); B96.20 Unspecified Escherichia coli [E. coli] as the cause of diseases classified elsewhere; E86.0 Dehydration; E10.65 Type 1 diabetes mellitus with hyperglycemia; E10.51 Type 1 diabetes mellitus with diabetic peripheral angiopathy without gangrene; E10.319 Type 1 diabetes mellitus with unspecified diabetic retinopathy without macular edema; Z96.41 Presence of insulin pump (external) (internal); J43.9 Emphysema, unspecified; N17.9 Acute kidney failure, unspecified; J03.01 Acute recurrent streptococcal tonsillitis; M79.7 Fibromyalgia; M21.372 Foot drop, left foot; Z20.822 Contact with and (suspected) exposure to COVID-19; R42 Dizziness and giddiness; R06.02 Shortness of breath; R05.9 Cough, unspecified; D64.9 Anemia, unspecified; F41.9 Anxiety disorder, unspecified; K21.9 Gastro-esophageal reflux disease without esophagitis; K58.9 Irritable bowel syndrome, unspecified; F42.9 Obsessive-compulsive disorder, unspecified; M81.0 Age-related osteoporosis without current pathological fracture; F17.210 Nicotine dependence, cigarettes, uncomplicated; F12.90 Cannabis use, unspecified, uncomplicated; Z86.14 Personal history of Methicillin resistant Staphylococcus aureus infection; Z79.4 Long term (current) use of insulin; Z79.3 Long term (current) use of hormonal contraceptives; Z79.899 Other long term (current) drug therapy
CPT/HCPCS: 36415; 71046; 80053; 81001; 82010; 82948; 83605; 83690; 83735; 85025; 87077; 87086; 87186; 87637; 87651; 96361; 96365; 96366; 96367; 96375; 96376; 99285; A9270; G0378; G0379; J0295; J1170; J1450; J1815; J1885; J7030

== ENCOUNTER 2023-03-24 13:44 | Outpatient (CLI) | payer OTHER, SELFPAY ==
--- NOTE | 2023-03-24 13:54 | ECG_ITS ---
Measurements Intervals [place] Rate: 86 P: 59 MS: 142 QRS: 35 QRSD: 92 T: 37 QT: 360 QTc: 431 Interpretive Statements SINUS RHYTHM NONSPECIFIC T-WAVE ABNORMALITY COMPARED TO PRIOR EKG 08-08-20: SINUS RHYTHM NOW PRESENT Electronically Signed On 03-24-2023 14:13:03 CDT by Warren Thompson M.D.
[2023-03-24 15:24] LABS: Partial Thromboplastin Time 29.3 SECONDS (22.3-36.8); Prothrombin Time 13.5 Seconds (11.1-14.7)
== END 2023-03-24 13:45 | disposition home or self-care (01) ==
PROVIDERS: Anesthesiology; PCP Family Medicine; Visit Provider Otolaryngology
DX: E10.9 Type 1 diabetes mellitus without complications (principal); N18.9 Chronic kidney disease, unspecified; Z01.818 Encounter for other preprocedural examination
CPT/HCPCS: 36415; 85610; 85730; 93005

== ENCOUNTER 2023-04-01 02:04 | Day surgery (SDC) | payer OTHER, SELFPAY ==
[2023-03-24 10:35] VITALS: BMI 23.2
--- NOTE | 2023-03-24 10:40 | PC.NURSE ---
Report to the Outpatient Waiting Room, entrance under the green pavilion located off [facility], at time 12:00 on date 04/01/23. Planned Procedure Time: 2:00. Time changes happen often and if your time is changed the preop area will call you the afternoon before. - You and your visitor will be asked to self-screen and do not enter if you have any COVID symptoms. - A mask is optional within the hospital at this time. Patients may have clear liquids (water, carbonated beverages, clear teas, apple juice) until 3 hours prior to surgery with a maximum of 20 ounces. - No food from midnight until time of surgery Take the following medications with a SIP of water the morning of surgery: BUSPIRONE, FLUVOXAMINE, LORAZEPAM IF NEEDED, PAIN PILL IF NEEDED. LEAVE INSULIN PUMP ON. DO NOT STOP ANY OF YOUR OTHER PRESCRIPTION MEDICATIONS PRIOR TO SURGERY ?EXCEPT THE FOLLOWING Medications to discontinue per physician: N/A Date to take last dose: N/A Please no make-up, nail hong konger, hairspray, perfume, deodorant, or body powder the day of surgery. No jewelry (including any body piercings) or valuables the day of surgery, leave them at home. Please take a shower or bath the night before, or the morning of, surgery with an antibacterial soap. Wear comfortable, loose fitting clothing. - Jewelry must be removed prior to entering the operating room. Rings and piercings that are not removed may be cut off. - The hospital will not accept responsibility for valuables. - Please leave all valuables, including medications, at home the day of surgery. If you are going home after surgery, a licensed local driver must drive you home. - NO public transportation without another adult if you receive anesthesia. - We recommend that an adult stay with you for 24 hours following discharge. - We also recommend that you do not drive, make important decision, drink alcoholic beverages, or take any drugs that were not prescribed by your health care provider for at least 24 hours after your discharge time. Follow any additional instructions given to you from your surgeon. If you or anyone in your household have experienced Covid symptoms in the past week, please notify your surgeon or the nurse liaison at the phone number below for possible testing. Telephone instructions given to PT - FAUSTINO ZABALA and asked if any additional questions and then verbalized understanding. Patient advised to call surgeon office or pre surgery nurse liaison [phone] if any additional questions.
--- NOTE | 2023-03-31 07:42 | PM.IMHP ---
H&P: HPI History of Present Illness Date/Time: 03/31/23 07:42 Chief Complaint: oral papilloma chronic tonsillitis recurrent tonsillitis Narrative: planned procedure Review of Systems Review of Systems: All systems reviewed & are unremarkable except as noted in HPI and below [facility] Past Medical History Medical History Achilles tendinitis, left leg Anemia Sees Dr. hernandez Anxiety BMI 23.0-23.9, adult BMI 24.0-24.9, adult BMI 24.0-24.9, adult BMI 25.0-25.9,adult Depression 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 Fibromyalgia Gastroesophageal reflux disease IBS (irritable bowel syndrome) Insulin dependent diabetes mellitus Left foot drop MRSA (methicillin resistant staph aureus) culture positive OCD (obsessive compulsive disorder) Osteoporosis Peripheral neuropathy Retinopathy Substance abuse Marijuana use daily Tobacco abuse Toenail fungus Left great toenail removed in some removed around the right toe nail great toe and 5th 1 on right foot Surgical History Surgical History H/O foot surgery H/O hysterectomy with oophorectomy H/O tubal ligation History of carpal tunnel release Right hand with ganglion cyst removal. S/P foot surgery, left Family History Family History Mother Family history of chronic obstructive pulmonary disease Atrial tachycardia Emphysema lung MAIC (mycobacterium avium-intracellulare complex) Father Acute myocardial infarction Grandparent Bone cancer Other Cerebrovascular accident Diabetes mellitus Family history of arthritis Family history of coronary artery disease Family history of malignant neoplasm Family history of malignant neoplasm of breast Social History Social History Smoking packs per day: 1 Smoking cigarettes per day: 20.0 Years smoked: 15 Smoking pack-years: 15.00 Smoking status: Current every day smoker Tobacco type: cigarettes Second hand tobacco smoke exposure: Yes Additional smoking assessment comments: She has smoked a pack a cigarettes a day for 25 years Alcohol intake: never Drinks per week: 0 Substance use: current Substance use type: marijuana Other substance usage details: Uses marijuana every day. Last use: DAILY Lack of Transportation: No Lack of Food: Never True Current Housing: I Have Housing Concerned About Future Housing: No Difficulty Paying Gas/Electric Bills: No Difficulty Paying for Meds: No Currently Unemployed: No Education: High School Diploma/GED Difficulty w/ Childcare or Family Care: No Living arrangements: with family Additional living arrangements comments: With her . She has 2 children. Patient reports that she does not have a power of workers compensation attorney. 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[facility] Gender identity (if verbalized by the patient): Female Sexual Orientation (if Verbalized by the Patient): Straight or Heterosexual Spiritual care concerns: No Agree to blood products: Yes Meds Home Medications and Allergies Home Medications Medication Instructions Recorded Confirmed Type buspirone 30 mg tablet 30 mg PO BID 08/25/19 03/24/23 History insulin lispro 100 unit/mL See Rx Instructions .Route .COMPLEX 06/23/20 03/24/23 History subcutaneous solution (Admelog U-100 Insulin lispro) insulin glargine 100 unit/mL See Rx Instructions .Route .COMPLEX 01/03/21 03/24/23 History subcutaneous solution (Lantus U-100 Insulin) fluvoxamine 100 mg tablet 150 mg PO BID 05/05/21 03/24/23 History ondansetron 4 mg disintegrating 4 mg PO Q6-8H PRN nausea and 01/20/23 03/24/23 Rx tablet vomiting #7 tabs estradiol 2 mg tablet 2 mg PO .QD 01/16
[2023-04-01] VITALS (8 sets, daily range): BP systolic 118–135; BP diastolic 78–94; PULSE 77–103; RESP 13–23; TEMP 36.2–36.9; O2SAT 96–100
[2023-04-01] MEDS: LACTATED RINGERS 1,000 ML 30 ML IV CONT ×2 (06:15→08:53)
[2023-04-01] MEDS: ACETAMINOPHEN 500 MG TABLET 1000 MG PO (06:16)
[2023-04-01 06:20] LABS: Glucose Point of Care 306 mg/dl (65-105)
--- NOTE | 2023-04-01 06:36 | WPDANESEPPF ---
Anes - Initial Pre Proc Eval Procedure: Operation Date: 04/01/23 08:15 Proposed Procedures p Tonsillectomy - Didier Lance MD Date/Time: 04/01/23 06:36 Surgeon: Didier Lance MD Pre Op Diagnosis: chronic tonsilitis Patient Data Age: 38 Gender: F Height: 1.7 m Weight: 68.6 kg Last Vital Signs Temp 36.2 C L 04/01/23 06:01 Pulse 103 H 04/01/23 06:01 Resp 18 04/01/23 06:01 BP 125/86 04/01/23 06:01 Pulse Ox 100 04/01/23 06:01 O2 Del Method Room Air 04/01/23 06:01 Allergies Allergy/AdvReac Type Severity Reaction Status Date / Time adhesive tape Allergy Mild Rash Verified 04/01/23 06:01 Home Medications Medication Instructions Recorded Confirmed Type buspirone 30 mg tablet 30 mg PO BID 08/25/19 04/01/23 History insulin lispro 100 unit/mL See Rx Instructions .Route .COMPLEX 06/23/20 04/01/23 History subcutaneous solution (Admelog U-100 Insulin lispro) insulin glargine 100 unit/mL See Rx Instructions .Route .COMPLEX 01/03/21 04/01/23 History subcutaneous solution (Lantus U-100 Insulin) fluvoxamine 100 mg tablet 150 mg PO BID 05/05/21 04/01/23 History ondansetron 4 mg disintegrating 4 mg PO Q6-8H PRN nausea and 01/20/23 04/01/23 Rx tablet vomiting #7 tabs estradiol 2 mg tablet 2 mg PO .QD 02/07/23 04/01/23 History lorazepam 0.5 mg tablet 0.5 mg PO TID PRN Anxiety 02/07/23 04/01/23 History quetiapine 400 mg tablet (Seroquel) 400 mg PO QHS 02/07/23 04/01/23 History hydrocodone 5 mg-acetaminophen 325 1 tablet PO Q4H PRN Pain Rated 4-6 03/04/23 04/01/23 Rx mg tablet 5 days #20 tabs Laboratory Tests 04/01/23 06:15 POC Capillary Glucose 306 H mg/dl (65-105) Patient hx anesthesia problems: none Family hx anesthesia problems: none Results Review: All pre-operative results and documents have been reviewed as part of the pre-operative evaluation. [facility] Past Medical History Medical History Achilles tendinitis, left leg Anemia Sees Dr. hernandez Anxiety BMI 23.0-23.9, adult BMI 24.0-24.9, adult BMI 24.0-24.9, adult BMI 25.0-25.9,adult Depression 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 Fibromyalgia Gastroesophageal reflux disease IBS (irritable bowel syndrome) Insulin dependent diabetes mellitus Left foot drop MRSA (methicillin resistant staph aureus) culture positive OCD (obsessive compulsive disorder) Osteoporosis Peripheral neuropathy Retinopathy Substance abuse Marijuana use daily Tobacco abuse Toenail fungus Left great toenail removed in some removed around the right toe nail great toe and 5th 1 on right foot Surgical History Surgical History H/O foot surgery H/O hysterectomy with oophorectomy H/O tubal ligation History of carpal tunnel release Right hand with ganglion cyst removal. S/P foot surgery, left Family History Family History Mother Family history of chronic obstructive pulmonary disease Atrial tachycardia Emphysema lung MAIC (mycobacterium avium-intracellulare complex) Father Acute myocardial infarction Grandparent Bone cancer Other Cerebrovascular accident Diabetes mellitus Family history of arthritis Family history of coronary artery disease Family history of malignant neoplasm Family history of malignant neoplasm of breast Social History Social History Smoking packs per day: 1 Smoking cigarettes per day: 20.0 Years smoked: 15 Smoking pack-years: 15.00 Smoking status: Current every day smoker Tobacco type: cigarettes Second hand tobacco smoke exposure: Yes Additional smoking assessment comments: She has smoked a pack a cigarettes a day for 25 years Alcohol intake: never Drinks per week: 0 Substance use: current Substance use type: marijuana Other subs
--- NOTE | 2023-04-01 07:15 | WPDHPUPDATE1 ---
History and Physical Update Update Date/Time: 04/01/23 07:15 History and Physical has been reviewed, including an updated exam of the patient. There are NO changes in the patient's condition. Risks, benefits, and alternatives have been discussed and questions answered. Patient agrees to proceed with procedure.
--- NOTE | 2023-04-01 07:54 | WPDHPUPDATE1 ---
History and Physical Update Update Date/Time: 04/01/23 07:54 Procedure is tonsillectomy and cautery of oral lesion
[2023-04-01 09:09] LABS: Glucose Point of Care 102 mg/dl (65-105)
[2023-04-01] MEDS: fentaNYL CITRATE INJ (*CRX) 100 MCG/2 ML VIAL 25 MCG IV PUSH ×4 (09:21→09:28)
--- NOTE | 2023-04-01 09:28 | SUR.PHASEI ---
0923: Simple mask removed per patient.
--- NOTE | 2023-04-01 10:00 | W.PM.PROC2 ---
Procedure Note - Detailed Date of Procedure 04/01/23 Pre-op Diagnosis chronic tonsilitis, recurrent tonsillitis Post-op Diagnosis Same Procedure Performed tonsillectomy Surgeon Didier Lance MD Anesthesia General Indications see above Findings chronic appearing tonsils minimal bleeding from the left side Description of Procedure patient identified consent verified in preop. Patient brought operating. Time-out performed. General anesthesia induced endotracheal tube secured. Patient prepped draped positioned procedure confirm 2nd time-out performed. McIvor mouth gag inserted revealing tonsils described above. They were removed bilaterally and the extracapsular plane using Bovie electrocautery at a setting of 10. Any bleeding was controlled with Bovie suction electrocautery at a setting of 12. Minimal bleeding from the left side. In between tonsils the McIvor mouth gag was lowered to allow blood flow to return to the tongue. At the end of the procedure McIvor mouth gag was again opened after 30 seconds being down to reveal no further bleeding. McIvor mouth gag removed. I performed all dictated portions of the procedure. Blood loss 5 cc. No complication. Care the patient given Anesthesiology. Patient taken to PACU. Estimated Blood Loss 5 Drains No Packing No Pathology Yes Complications No immediate complications Condition Stable Disposition PACU [facility] Billing Surgery - Charge Forward: Surgery Billing
[2023-04-01] MEDS: oxyCODONE HCL (*CRX) 5 MG TAB IR PO (10:05)
== END 2023-04-01 10:55 | disposition home or self-care (01) ==
PROVIDERS: PCP Family Medicine; Visit Provider Otolaryngology
PROC: (CPT 42826; principal; 2023-04-01 08:15)
DX: J35.1 Hypertrophy of tonsils (principal); D10.39 Benign neoplasm of other parts of mouth; Z79.4 Long term (current) use of insulin; E10.51 Type 1 diabetes mellitus with diabetic peripheral angiopathy without gangrene; E10.42 Type 1 diabetes mellitus with diabetic polyneuropathy; E10.319 Type 1 diabetes mellitus with unspecified diabetic retinopathy without macular edema; M79.7 Fibromyalgia; K21.9 Gastro-esophageal reflux disease without esophagitis; M81.0 Age-related osteoporosis without current pathological fracture; F42.8 Other obsessive-compulsive disorder; F17.210 Nicotine dependence, cigarettes, uncomplicated; F12.90 Cannabis use, unspecified, uncomplicated
CPT/HCPCS: 42826; 40820; 82948; 88300; 88302; A9270; J0330; J1100; J2250; J2405; J2704; J3010; J7120

== ENCOUNTER 2023-04-07 19:27 | Emergency (ER) | payer OTHER, SELFPAY ==
[2023-04-07 19:32] VITALS: BP 108/84; PULSE 105; RESP 16; TEMP 36.6; O2SAT 100
--- NOTE | 2023-04-07 21:57 | PC.NURSE ---
called x2 no answer
== END 2023-04-07 22:32 | disposition left against medical advice (07) ==
PROVIDERS: PCP Family Medicine
DX: R06.02 Shortness of breath (principal)
CPT/HCPCS: 99199

== ENCOUNTER 2023-06-23 14:30 | Observation (INO) | payer OTHER, SELFPAY ==
[2023-06-23] VITALS (15 sets, daily range): BP systolic 92–105; BP diastolic 57–65; PULSE 96–104; RESP 13–43; TEMP 36.4–36.7; O2SAT 95–100; BMI 22.2
--- NOTE | ~2023-06-23 | XR_ITS ---
EXAMINATION: XR chest 2V DATE: 06/23/2023 16:45 INDICATION: Shortness of breath TECHNIQUE: PA and lateral views of the chest are obtained. COMPARISON: 03/02/2023 FINDINGS: The lungs are free of acute opacities. No pleural effusion or pneumothorax. The cardiomedia stinal silhouette is normal. There is mild thoracic spondylosis. IMPRESSION: 1. No acute cardiopulmonary abnormality. Reviewed, dictated and finalized at location L.
--- NOTE | ~2023-06-23 | CT_ITS ---
EXAMINATION: CT abdomen pelvis wo con DATE: 06/25/2023 15:08 INDICATION: abdominal pain TECHNIQUE: Computed tomography (CT) of the abdomen and pelvis was performed without intravenous contr ast. Automated exposure control and iterative reconstruction technique were employed. The dose-length product was 369.91 mGy-cm. COMPARISON: 12/03/2019. FINDINGS: Lower thorax: Minimal dependent atelectasis. Liver: Normal. Biliary/Gallbladder: Gallbladder is collapsed. No bile duct dilation. Pancreas: No mass or duct dilation. Spleen: Normal. Adrenals:No mass. Kidneys: Subcentimeter right upper pole hypodensity, likely representing a hemorrhagic or proteinaceo us cyst. No suspicious mass, obstructing stone, or hydronephrosis. GI tract: No small or large bowel dilation. Normal appendix. Mesentery/Peritoneum: No ascites, mass, or free air. Retroperitoneum: No mass. Pelvis: Absent uterus. Normal urinary bladder. Small volume free pelvic fluid, within physiologic ran ge. Soft Tissues: Tiny inflamed sebaceous cyst in the right inguinal crease. Uncomplicated small fat-cont aining umbilical hernia. Bones: No acute osseous finding. IMPRESSION: No acute abdominopelvic process detected. Reviewed, dictated and finalized at location K.
[2023-06-23 14:42] LABS: Glucose Point of Care > 500 mg/dl (65-105)
--- NOTE | 2023-06-23 15:01 | ED.NAVMDI ---
HPI - Nausea/Vomiting/Diarrhea General Chief complaint: Nausea/Vomiting/Diarrhea Stated complaint: BS undreadable Time Seen by Provider: 06/23/23 14:42 History of Present Illness HPI Narrative: Patient is a 38-year-old female with history of type 1 diabetes, diabetic neuropathy here with elevated blood glucose greater than 500. Patient states that yesterday she began feeling nauseous with some chills. She notes that she had some juice and other things that she normally does not have to eat and that she bolused herself and off insulin. Her glucose prior to this was in the 250s however after this it was unable to be read at home. Her last insulin boluses were 2 manual boluses of 20 units and 2 6.7 unit boluses via her pump. Patient has had some persistent nausea, vomiting as well as epigastric pain. She notes that this feels very similar to when she has been in DKA in the past. no cough, congestion, fever, sick contacts. Related Data Home Medications Medication Instructions Recorded Confirmed buspirone 30 mg tablet 30 mg PO BID 08/25/19 06/23/23 insulin lispro 100 unit/mL See Rx Instructions .Route .COMPLEX 06/23/20 06/23/23 subcutaneous solution (Admelog U-100 Insulin lispro) insulin glargine 100 unit/mL See Rx Instructions .Route .COMPLEX 01/03/21 06/23/23 subcutaneous solution (Lantus U-100 Insulin) fluvoxamine 100 mg tablet 150 mg PO BID 05/05/21 06/23/23 estradiol 2 mg tablet 2 mg PO .QD 02/07/23 06/23/23 lorazepam 0.5 mg tablet 0.5 mg PO TID PRN Anxiety 02/07/23 06/23/23 quetiapine 400 mg tablet (Seroquel) 400 mg PO QHS 02/07/23 06/23/23 Allergies Allergy/AdvReac Type Severity Reaction Status Date / Time adhesive tape Allergy Mild Rash Verified 06/23/23 14:59 Review of Systems Review of Systems: CONSTITUTIONAL: chills, Denies fever, or sweats. EYES: Denies visual changes, redness, or discharge. ENT: Denies rhinorrhea, congestion, sore throat, or otalgia. CARDIOVASCULAR: Denies chest pain, palpitations, or edema. RESPIRATORY: Denies cough or dyspnea. GASTROINTESTINAL: abdominal pain, nausea, vomiting, no diarrhea. GENITOURINARY: Denies dysuria or hematuria. SKIN: Denies rash or itching. MUSCULOSKELETAL: Denies back pain, joint pain, or myalgia. NEUROLOGIC: Denies headache, numbness, or weakness. PSYCHIATRIC: Denies anxiety or depression. [facility] Past Medical History Medical History (Updated 06/23/23 @ 20:18 by Beatriz Quiroz MD) Achilles tendinitis, left leg Anemia Sees Dr. 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 History of foot surgery x5, L foot due to drop foot s/p diabetic coma History of tonsillectomy History of total hysterectomy Family History Family History Mother Family history of chronic obstructive pulmonary disease Atrial tachycardia Emphysema lung MAIC (mycobacterium avium-intracellulare complex) Father Acute myocardial infarction Grandparent Bone cancer Other Cerebrovascular accident Diabetes mellitus Family history of arthritis Family history of coronary artery disease Family history of malignant neoplasm Family history of malignant neoplasm of breast Social History Social History (Updated 06/23/23 @ 20:05 by Ruby Kim APRN) Social History: Patient currently lives at home with and two children (6 and 9) as of 06/23/23. Patient requested , betty Henry
[2023-06-23 15:02] LABS: Basophils Absolute Auto 0.1 K/mm3 (0.0-0.1); Basophils Percent Auto 0.3 % (0.2-1.2); Eosinophils Percent Auto 0.1 % (0-4.4); Hematocrit 36.2 % (37.0-47.0); Hemoglobin 11.8 g/dL (12.0-15.0); Immature Granulocyte Absolute 0.18 K/mm3 (0.00-0.031); Immature Granulocyte Percent A 0.9 % (0-0.5); Lymphocytes Absolute Auto 0.96 K/mm3 (0.9-3.2); Lymphocytes Percent Auto 4.6 % (18.3-44.2); Mean Corpuscular HGB Conc 32.6 g/dl (32-36); Mean Corpuscular Hemoglobin 30.9 pg (26-34); Mean Corpuscular Volume 94.8 fl (80-100); Mean Platelet Volume 10.9 fl (7.4-10.4); Monocytes Absolute Auto 1.1 K/mm3 (0.1-0.6); Monocytes Percent Auto 5.3 % (2.6-8.5); Neutrophils Absolute Auto 18.6 K/mm3 (1.3-6.7); Neutrophils Percent Auto 88.8 % (45.5-73.1); Platelet Count Result 179 k/mm3 (150-375); Red Blood Count 3.82 M/mm3 (4.2-5.4); Red Cell Distribution Width 12.3 % (11.5-14.5); White Blood Count 20.9 K/mm3 (4.5-10.0)
[2023-06-23] MEDS: LACTATED RINGERS 1,000 ML 999 ML IV CONT ×3 (15:18→17:13)
[2023-06-23] MEDS: ONDANSETRON INJ 4 MG/2 ML VIAL IV PUSH ×2 (15:19→22:28)
[2023-06-23] MEDS: PANTOPRAZOLE SODIUM IV 40 MG VIAL IV PUSH (15:19)
[2023-06-23] MEDS: MORPHINE SULFATE (*CRX) 4 MG/ML INJ IV PUSH ×2 (15:19→21:54)
[2023-06-23 15:29] LABS: Alanine Aminotransferase 41 U/L (6-35); Albumin Level 4.7 g/dL (3.5-5.1); Alkaline Phosphatase 146 U/L (38-126); Anion Gap 26 mmol/L (8-16); Aspartate Amino Transferase 42 U/L (14-36); Bilirubin,Total 0.8 mg/dL (0.2-1.3); Blood Urea Nitrogen 29 mg/dL (7-17); Calcium 9.7 mg/dL (8.4-10.2); Carbon Dioxide 12 mmol/L (22-30); Chloride 93 mmol/L (98-107); Estimated CRCL calculation 56 ml/min; Estimated Glomerular Filt Rate 51; Glucose 764 mg/dL (65-110); Potassium 4.9 mmol/L (3.4-5.0); Sodium 131 mmol/L (137-145)
[2023-06-23 15:33] LABS: CRP 1.3 mg/dL (<1.0); Lipase 26 U/L (23-300)
[2023-06-23 15:44] LABS: Alveolar/Arterial O2 Gradient 37.4 mmHg; Base Excess ABG -9.1 mEq/l (+/-2.0); Device ROOM AIR; Fractional Inspired Oxygen 21 %; HCO3 ABG 16.2 mEq/l (22.0-26.0); Oxygen Content ABG 14.1 %vol (16.0-22.0); Oxygen Saturation ABG 93.5 % (95.0-100.0); Oxyhemoglobin 92.2 % THb (90.0-100.0); PO2 ABG 72.8 mmHg (80.0-100.0); PO2 FiO2 Ratio Arterial Blood 3.47 %; Site Drawn RIGHT RADIAL; Total Hemoglobin 10.8 g/dL (12.0-18.0); pH ABG 7.308 (7.350-7.450)
[2023-06-23] MEDS: NICOTINE (*PBKC) 14 MG PATCH 1 PATCH TRANSDERM (15:53)
[2023-06-23 15:56] LABS: Appearance Urine Clear (Clear); Bilirubin Urine Negative (Negative); Blood Urine Negative (Negative); Color Urine Yellow (Yellow); Glucose Urine UA 3+ mg/dL (Negative); Ketones Urine 2+ mg/dL (Negative); Leukocyte Esterase Ur Negative LEU/UL (Negative); Nitrate Urine Negative (Negative); Protein Urine Negative (Negative); Specific Grav Ur 1.027 (1.001-1.035); Urobilinogen Urine 0.2 mg/dL (<2.0)
[2023-06-23 16:16] LABS: SARS-CoV-2 RNA PCR Negative (Negative)
[2023-06-23 16:26] LABS: Add Urine Microscopic? NO
[2023-06-23] MEDS: SODIUM CHLORIDE 0.9% IV 1,000 ML 150 ML IV CONT (17:03)
[2023-06-23] MEDS: INSULIN HUMAN REGULAR (*BKC) 100 UNITS in SODIUM CHLORIDE 0.9% IV 99 ML 6.5 UNITS IV CONT (17:03)
[2023-06-23 18:14] LABS: Glucose Point of Care > 500 mg/dl (65-105)
--- NOTE | 2023-06-23 18:20 | ADMGEN ---
This patient, Sole Grullon, was admitted to Intensive Care Unit-6. Patient/family oriented to hospital policies and general routines including ID bracelet, bed and alarms, visiting hours, pain management, procedures, bathroom and other care routines, personal items, smoking policy, room service/diet, and visiting hours. Information on how to activate the Rapid Response Team has been discussed. Patient/Family are encouraged to report perceived risks to care and to ask questions if they do not understand what they are told or what they should do.
[2023-06-23 18:35] LABS: Glucose Point of Care > 500 mg/dl (65-105)
--- NOTE | 2023-06-23 19:15 | PHAR ---
HOME MED VERIFIED = [facility] RX [id number] FLUVOXAMINE 150 MG CAPS BID
--- NOTE | 2023-06-23 19:18 | PM.IMHP ---
H&P: HPI History of Present Illness Date/Time: 06/23/23 19:18 Chief Complaint: Hyperglycemia, Abdominal Pain Narrative: 38 y/o F with PMH of DM1 w/past complications of DKA and diabetic coma, anemia, fibromyalgia, OCD, depression/anxiety, and neuropathy presents here with hyperglycemia, abdominal pain, and N/V. Patient presents here with nausea and vomiting for the past 2 days. Accompanied by lethargy, weakness w/difficulty ambulating, and feeling tremulous. She is endorsing upper abdominal pain, epigastric pain. She has been unable to tolerate PO, despite intolerance attempted to continue hydration with water. Emesis is non-bilious, non-bloody. Patient has insulin pump to manage her DM1. Current basal dose unknown, typically 0.8-1.2 per patient and boluses from pump are carb based. Today patient administered Novolog 20 U SQ x2 and 6.7 U of regular insulin via pump x1 without resolution of hyperglycemia. Patient's glucose reading HIGH on device, device is able to read to 600. Patient has also been experiencing white vaginal discharge and itching. Reports consistent presentation with previous vaginal yeast infections. Review of Systems Review of Systems: All systems reviewed & are unremarkable except as noted in HPI and below PMFSH Past Medical History Medical History (Updated 06/23/23 @ 20:18 by Beatriz Quiroz MD) Achilles tendinitis, left leg Anemia Sees Dr. 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 History of foot surgery x5, L foot due to drop foot s/p diabetic coma History of tonsillectomy History of total hysterectomy Family History Family History Mother Family history of chronic obstructive pulmonary disease Atrial tachycardia Emphysema lung MAIC (mycobacterium avium-intracellulare complex) Father Acute myocardial infarction Grandparent Bone cancer Other Cerebrovascular accident Diabetes mellitus Family history of arthritis Family history of coronary artery disease Family history of malignant neoplasm Family history of malignant neoplasm of breast Social History Social History (Updated 06/23/23 @ 20:05 by Ruby Kim APRN) Social History: Patient currently lives at home with and two children (6 and 9) as of 06/23/23. Patient requested , Frank Mann, act as surrogate decision maker. Smoking packs per day: 1 Smoking cigarettes per day: 20.0 Years smoked: 25 Smoking pack-years: 25.00 Smoking status: Current every day smoker Tobacco type: cigarettes Second hand tobacco smoke exposure: Yes Additional smoking assessment comments: Assessed for readiness to quit (Jun 2023), patient not ready. Alcohol intake: never Drinks per week: 0 Substance use: current Substance use type: marijuana Other substance usage details: Uses marijuana every day. Last use: DAILY Lack of Transportation: No Lack of Food: Never True Current Housing: I Have Housing Concerned About Future Housing: No Difficulty Paying Gas/Electric Bills: No Difficulty Paying for Meds: No Currently Unemployed: No Education: High School Diploma/GED Difficulty w/ Childcare or Family Care: No Living arrangements: with family Additional living arrangements comments: With her . She has 2 children. Patient reports that she does not have a power of trust and estates attorney. Occupation/Education: occupation
[2023-06-23 19:25] LABS: Anion Gap 15 mmol/L (8-16); Blood Urea Nitrogen 26 mg/dL (7-17); Calcium 8.8 mg/dL (8.4-10.2); Carbon Dioxide 18 mmol/L (22-30); Chloride 100 mmol/L (98-107); Estimated CRCL calculation 66 ml/min; Estimated Glomerular Filt Rate > 60; Glucose 395 mg/dL (65-110); Magnesium 1.9 mg/dL (1.6-2.3); Phosphorus 3.1 mg/dL (2.5-4.5); Sodium 133 mmol/L (137-145)
[2023-06-23 20:20] LABS: Glucose Point of Care 392 mg/dl (65-105)
[2023-06-23] MEDS: LORazepam (*CRX) 0.5 MG TABLET PO (21:53)
[2023-06-23] MEDS: busPIRone HCL 10 MG TABLET 30 MG PO (21:53)
[2023-06-23] MEDS: QUEtiapine FUMARATE 100 MG TABLET 400 MG PO (21:53)
[2023-06-23 22:04] LABS: Glucose Point of Care 242 mg/dl (65-105)
[2023-06-23] MEDS: KCL 20 MEQ/D5/0.45% SOD CHL 1,000 ML 150 ML IV CONT (22:17)
[2023-06-23 23:04] LABS: Fractional Inspired Oxygen 21 %; HCO3 VBG 23.1 mEq/l (24.0-30.0); PCO2 VBG 38.8 mmHg (42.0-48.0); PO2 VBG 35.5 mmHg (35.0-45.0); pH VBG 7.393 (7.300-7.400)
[2023-06-23 23:05] LABS: Device ROOM AIR
[2023-06-23 23:20] LABS: Anion Gap 6 mmol/L (8-16); Blood Urea Nitrogen 26 mg/dL (7-17); Calcium 8.6 mg/dL (8.4-10.2); Carbon Dioxide 26 mmol/L (22-30); Chloride 104 mmol/L (98-107); Estimated CRCL calculation 66 ml/min; Estimated Glomerular Filt Rate > 60; Glucose 177 mg/dL (65-110); Magnesium 1.9 mg/dL (1.6-2.3); Potassium 3.6 mmol/L (3.4-5.0); Sodium 136 mmol/L (137-145)
[2023-06-24] VITALS (8 sets, daily range): BP systolic 82–119; BP diastolic 52–82; PULSE 77–109; RESP 14–22; TEMP 36.6–36.9; O2SAT 93–100; BMI 21.8
[2023-06-24 00:33] LABS: Glucose Point of Care 157 mg/dl (65-105)
[2023-06-24] MEDS: INSULIN GLARGINE (*BKC) 100 UNITS/ML 15 UNITS SUB-Q ×2 (01:26→21:02)
[2023-06-24 01:39] LABS: Glucose Point of Care 142 mg/dl (65-105)
[2023-06-24 02:39] LABS: Glucose Point of Care 155 mg/dl (65-105)
[2023-06-24 04:38] LABS: Basophils Absolute Auto 0.1 K/mm3 (0.0-0.1); Basophils Percent Auto 0.3 % (0.2-1.2); Eosinophils Percent Auto 0.2 % (0-4.4); Hematocrit 28.3 % (37.0-47.0); Hemoglobin 9.8 g/dL (12.0-15.0); Immature Granulocyte Absolute 0.19 K/mm3 (0.00-0.031); Lymphocytes Absolute Auto 2.04 K/mm3 (0.9-3.2); Lymphocytes Percent Auto 10.8 % (18.3-44.2); Mean Corpuscular HGB Conc 34.6 g/dl (32-36); Mean Corpuscular Hemoglobin 30.9 pg (26-34); Mean Corpuscular Volume 89.3 fl (80-100); Mean Platelet Volume 10.4 fl (7.4-10.4); Monocytes Absolute Auto 1.6 K/mm3 (0.1-0.6); Monocytes Percent Auto 8.4 % (2.6-8.5); Neutrophils Percent Auto 79.3 % (45.5-73.1); Platelet Count Result 154 k/mm3 (150-375); Red Blood Count 3.17 M/mm3 (4.2-5.4); Red Cell Distribution Width 12.1 % (11.5-14.5); White Blood Count 18.9 K/mm3 (4.5-10.0)
[2023-06-24 04:50] LABS: Alanine Aminotransferase 22 U/L (6-35); Albumin Level 3.1 g/dL (3.5-5.1); Alkaline Phosphatase 95 U/L (38-126); Anion Gap 3 mmol/L (8-16); Aspartate Amino Transferase 31 U/L (14-36); Bilirubin,Total 0.4 mg/dL (0.2-1.3); Blood Urea Nitrogen 25 mg/dL (7-17); Calcium 8.7 mg/dL (8.4-10.2); Carbon Dioxide 26 mmol/L (22-30); Chloride 105 mmol/L (98-107); Estimated CRCL calculation 73 ml/min; Estimated Glomerular Filt Rate > 60; Glucose 121 mg/dL (65-110); Potassium 4.6 mmol/L (3.4-5.0); Sodium 134 mmol/L (137-145)
[2023-06-24 07:48] LABS: Glucose Point of Care 195 mg/dl (65-105)
--- NOTE | 2023-06-24 08:01 | WPDCNINT ---
Assessment and Plan Assessment and plan (1) DKA (diabetic ketoacidosis): Qualifiers: Diabetes mellitus complication detail: without coma Diabetes mellitus type: type 1 Qualified Code(s): E10.10 - Type 1 diabetes mellitus with ketoacidosis without coma Code(s): E11.10 - Type 2 diabetes mellitus with ketoacidosis without coma Status: Acute Assessment and Plan: Patient presented with hyperglycemia, nausea, vomiting, abdominal pain, patient's blood sugars in the ER were > 500 with anion gap metabolic acidosis and diabetic ketoacidosis. -patient was given 3 L IV fluids in the ER and started on insulin infusion -overnight patient has a gap closed and was transition to long-acting insulin Lantus 15 units SQ q.h.s. -06/23: hemoglobin A1c this admission is 12.0 -will have radiology tech and dietitian evaluate the patient (2) Upper abdominal pain: Code(s): R10.10 - Upper abdominal pain, unspecified Status: Acute Assessment and Plan: Upper abdominal pain/epigastric pain likely related to nausea and vomiting, DKA -resolved this morning (3) Vulvovaginitis: Code(s): N76.0 - Acute vaginitis Status: Acute Assessment and Plan: Patient to receive fluconazole 150 mg tablet p.o. x1 this morning (4) Tobacco dependence: Code(s): F17.200 - Nicotine dependence, unspecified, uncomplicated Status: Acute Assessment and Plan: Have counseled patient for cessation of tobacco, she is receptive (5) Substance abuse: Code(s): F19.10 - Other psychoactive substance abuse, uncomplicated Status: Chronic Assessment and Plan: Consult patient was cessation of marijuana use (6) Peripheral neuropathy: Qualifiers: Peripheral neuropathy type: polyneuropathy, unspecified Qualified Code(s): G62.9 - Polyneuropathy, unspecified Code(s): G62.9 - Polyneuropathy, unspecified Status: Chronic Assessment and Plan: History of peripheral neuropathy -continue Seroquel (7) Depression with anxiety: Code(s): F41.8 - Other specified anxiety disorders Status: Chronic Assessment and Plan: Continue buspirone, fluvoxamine, lorazepam, Seroquel Plan DVT prophylaxis: Lovenox Stress ulcer prophylaxis: Not indicated Nutrition: Diabetic diet Code Status: Full code Critical Care Time Spent: 46 minutes Due to a high probability of clinically significant, life threatening deterioration, the patient required my highest level of preparedness to intervene emergently and I personally spent this critical care time directly and personally managing the patient. This critical care time included obtaining a history; examining the patient; pulse oximetry; ordering and review of studies; arranging urgent treatment with development of a management plan; evaluation of patient's response to treatment; frequent reassessment; and discussions with other providers. It was exclusive of separately billable procedures and treating other patients and teaching time. Please see Assessment and Plan section and the rest of the note for further information on patient assessment and treatment This dictation may have been done utilizing a voice recognition system. Attempts have been made to correct errors. However, there may be uncorrected grammatical, spelling, and recognitions errors present. Drying Oven Tender Consult Note Consult date: 06/24/23 Reason for consult: Nausea, vomiting, weakness, abdominal pain, DKA HPI: Sole Grullon is a 38 year old female with history of type 1 diabetes, diabetic neuropathy, history of anemia, anxiety, depression, fibromyalgia, irritable bowel syndrome, left footdrop OCD, osteoporosis, daily marijuana use, tobacco use presented to the ED on 06/23/2023 with complains of nausea, vomiting, abdominal pain, generalized weakness for 2 days prior to admission along with hyperglycemia. In the ER patient had blood sugars of > 500, metabolic
[2023-06-24] MEDS: FLUCONAZOLE 150 MG TABLET PO (08:03)
[2023-06-24] MEDS: ENOXAPARIN 40 MG/0.4 ML SYRINGE SUB-Q (08:03)
[2023-06-24] MEDS: busPIRone HCL 10 MG TABLET 30 MG PO ×2 (08:03→21:03)
[2023-06-24] MEDS: MORPHINE SULFATE (*CRX) 2 MG/ML INJ IV PUSH ×4 (08:05→21:05)
[2023-06-24] MEDS: NICOTINE (*PBKC) 14 MG PATCH 1 PATCH TRANSDERM (08:05)
[2023-06-24 11:36] LABS: Glucose Point of Care 266 mg/dl (65-105)
[2023-06-24] MEDS: INSULIN ASPART (*BKC) 100 UNITS/ML SUB-Q ×2 (11:48→11:49)
--- NOTE | 2023-06-24 13:54 | PM.IMPN ---
Progress Note: A&P Assessment and Plan (1) DKA (diabetic ketoacidosis): Qualifiers: Diabetes mellitus complication detail: without coma Diabetes mellitus type: type 1 Qualified Code(s): E10.10 - Type 1 diabetes mellitus with ketoacidosis without coma Code(s): E11.10 - Type 2 diabetes mellitus with ketoacidosis without coma Status: Acute (2) Upper abdominal pain: Code(s): R10.10 - Upper abdominal pain, unspecified Status: Acute (3) Vulvovaginitis: Code(s): N76.0 - Acute vaginitis Status: Acute (4) Tobacco dependence: Code(s): F17.200 - Nicotine dependence, unspecified, uncomplicated Status: Acute (5) Substance abuse: Code(s): F19.10 - Other psychoactive substance abuse, uncomplicated Status: Chronic (6) Peripheral neuropathy: Qualifiers: Peripheral neuropathy type: polyneuropathy, unspecified Qualified Code(s): G62.9 - Polyneuropathy, unspecified Code(s): G62.9 - Polyneuropathy, unspecified Status: Chronic (7) Depression with anxiety: Code(s): F41.8 - Other specified anxiety disorders Status: Chronic Plan 38-year-old with history type diabetes diabetic elevated blood sugar. Started gastric insulin hypotensive on presentation with tachycardia. She diagnosed with DKA received fluid boluses was admitted to the ICU on insulin drip. Blood sugar was 764 bicarb 16 acidotic pH of 7.30 leukocytosis WBC count of 20 kg. Mild LAURENCE noted as well. She has been transition to and lispro after closure of the gap. Lipase was normal AST ALT mildly elevated. Morphine p.r.n.. Still persistent epigastric pain. Acute vulvovaginitis noted received fluconazole history of depression and anxiety on home medication. DVT prophylaxis Lovenox recent infection of the skin treated with antibiotics. Recheck WBC count in a.m. if still persistent will scan Subjective Date/time seen: 06/24/23 13:54 Interval history: 38-year-old with history type diabetes diabetic elevated blood sugar. Started gastric insulin hypotensive on presentation with tachycardia. She diagnosed with DKA received fluid boluses was admitted to the ICU on insulin drip. Blood sugar was 764 bicarb 16 acidotic pH of 7.30 leukocytosis WBC count of 20 kg. Mild LAURENCE noted as well. She has been transition to and lispro after closure of the gap. Lipase was normal AST ALT mildly elevated. Morphine p.r.n.. Still persistent epigastric pain. Acute vulvovaginitis noted received fluconazole history of depression and anxiety on home medication Review of Systems Review of Systems: All systems reviewed & are unremarkable except as noted in HPI and below Exam Narrative: General: Pleasant female in no acute distress HEENT:? Pupils equal and reactive, dry oral mucosa, sclera is clear Neck:? Supple, no lymphadenopathy Respiratory:? Clear to auscultation bilaterally Cardiac:? S1-S2 normal, regular rate and rhythm Abdomen:? Soft, epigastric tenderness, nondistended, normoactive bowel sounds Extremities:? No edema, palpable pedal pulses Neuro:? Patient is awake, alert, oriented, nonfocal Skin:? Multiple tattoos Psych:? Normal mentation and affect Objective Data Vital Signs Vital Signs: Vital Signs - 24 hr 06/23/23 14:51 06/23/23 14:43 06/23/23 14:45 Temperature 97.6 F Pulse Rate 103 H Respiratory Rate 20 Blood Pressure 92/57 L Pulse Oximetry 100 100 98 Oxygen Delivery Room Air 06/23/23 14:46 06/23/23 15:11 06/23/23 15:15 Temperature Pulse Rate 104 H 100 Respiratory Rate 19 18 Blood Pressure 92/57 L Pulse Oximetry 100 96 Oxygen Delivery 06/23/23 15:27 06/23/23 15:30 06/23/23 15:31 Temperature Pulse Rate 97 97 96 Respiratory Rate 15 15 13 Blood Pressure 101/65 105/65 Pulse Oximetry 100 100 99 Oxygen Delivery 06/23/23 15:32 06/23/23 16:04 06/23/23 16:19 Temperature Pulse Rate 96 98 Respiratory Rate 15 23 H 43 H B
[2023-06-24 16:37] LABS: Glucose Point of Care 428 mg/dl (65-105)
[2023-06-24] MEDS: INSULIN ASPART (*BKC) 100 UNITS/ML 10 UNITS SUB-Q (16:48)
[2023-06-24 17:14] LABS: Monoscreen Negative (Negative); Negative Monotest Control Negative (Negative); Positive Monotest Control Positive (Positive)
--- NOTE | 2023-06-24 17:58 | ADMGEN ---
This patient, Sole Grullon, was transferred from Intensive Care Unit-6, admitted to Room 349. Patient/family oriented to hospital policies and general routines including ID bracelet, bed and alarms, visiting hours, pain management, procedures, bathroom and other care routines, personal items, smoking policy, room service/diet, and visiting hours. Information on how to activate the Rapid Response Team has been discussed. Patient/Family are encouraged to report perceived risks to care and to ask questions if they do not understand what they are told or what they should do.
--- NOTE | 2023-06-24 18:07 | PC.NURSE ---
This patient, Sole Grullon, was transferred to [facility] on 06/24/23 at 1755. Personal belongings sent with patient. Report given to JUNIE Gregorio. Appropriate documentation sent with patient.
[2023-06-24] MEDS: QUEtiapine FUMARATE 100 MG TABLET 400 MG PO (21:03)
[2023-06-24 21:31] LABS: Glucose Point of Care 298 mg/dl (65-105)
[2023-06-24] MEDS: INSULIN ASPART (*BKC) 100 UNITS/ML 8 UNITS SUB-Q (23:04)
[2023-06-25 00:55] LABS: Glucose Point of Care 162 mg/dl (65-105)
[2023-06-25 05:37] VITALS: BP 109/70; PULSE 86; RESP 16; TEMP 36.5; O2SAT 97
[2023-06-25 05:39] LABS: Basophils Percent Auto 0.4 % (0.2-1.2); Eosinophils Absolute Auto 0.3 K/mm3 (0-0.3); Eosinophils Percent Auto 2.8 % (0-4.4); Hematocrit 29.2 % (37.0-47.0); Hemoglobin 9.8 g/dL (12.0-15.0); Immature Granulocyte Absolute 0.04 K/mm3 (0.00-0.031); Immature Granulocyte Percent A 0.4 % (0-0.5); Lymphocytes Absolute Auto 2.13 K/mm3 (0.9-3.2); Lymphocytes Percent Auto 22.3 % (18.3-44.2); Mean Corpuscular HGB Conc 33.6 g/dl (32-36); Mean Corpuscular Hemoglobin 30.6 pg (26-34); Mean Corpuscular Volume 91.3 fl (80-100); Mean Platelet Volume 10.2 fl (7.4-10.4); Monocytes Absolute Auto 0.6 K/mm3 (0.1-0.6); Monocytes Percent Auto 5.9 % (2.6-8.5); Neutrophils Absolute Auto 6.5 K/mm3 (1.3-6.7); Neutrophils Percent Auto 68.2 % (45.5-73.1); Platelet Count Result 146 k/mm3 (150-375); Red Cell Distribution Width 12.3 % (11.5-14.5); White Blood Count 9.6 K/mm3 (4.5-10.0)
[2023-06-25] MEDS: MORPHINE SULFATE (*CRX) 2 MG/ML INJ IV PUSH ×5 (05:40→22:17)
[2023-06-25 05:55] LABS: Alanine Aminotransferase 25 U/L (6-35); Albumin Level 2.9 g/dL (3.5-5.1); Alkaline Phosphatase 84 U/L (38-126); Anion Gap 5 mmol/L (8-16); Aspartate Amino Transferase 44 U/L (14-36); Bilirubin,Total 0.3 mg/dL (0.2-1.3); Blood Urea Nitrogen 18 mg/dL (7-17); Calcium 9.2 mg/dL (8.4-10.2); Carbon Dioxide 28 mmol/L (22-30); Chloride 106 mmol/L (98-107); Estimated CRCL calculation 73 ml/min; Estimated Glomerular Filt Rate > 60; Glucose 186 mg/dL (65-110); Magnesium 1.8 mg/dL (1.6-2.3); Potassium 4.1 mmol/L (3.4-5.0); Sodium 139 mmol/L (137-145)
[2023-06-25] MEDS: INSULIN ASPART (*BKC) 100 UNITS/ML SUB-Q ×3 (08:30→17:17)
[2023-06-25 08:31] LABS: Glucose Point of Care 211 mg/dl (65-105)
[2023-06-25] MEDS: ENOXAPARIN 40 MG/0.4 ML SYRINGE SUB-Q (08:36)
[2023-06-25] MEDS: NICOTINE (*PBKC) 14 MG PATCH 1 PATCH TRANSDERM (08:36)
[2023-06-25] MEDS: busPIRone HCL 10 MG TABLET 30 MG PO ×2 (08:36→21:10)
[2023-06-25 08:37] VITALS: RESP 16; O2SAT 96
--- NOTE | 2023-06-25 10:36 | PM.IMPN ---
Progress Note: A&P Assessment and Plan (1) DKA (diabetic ketoacidosis): Qualifiers: Diabetes mellitus complication detail: without coma Diabetes mellitus type: type 1 Qualified Code(s): E10.10 - Type 1 diabetes mellitus with ketoacidosis without coma Code(s): E11.10 - Type 2 diabetes mellitus with ketoacidosis without coma Status: Acute (2) Upper abdominal pain: Code(s): R10.10 - Upper abdominal pain, unspecified Status: Acute (3) Vulvovaginitis: Code(s): N76.0 - Acute vaginitis Status: Acute (4) Tobacco dependence: Code(s): F17.200 - Nicotine dependence, unspecified, uncomplicated Status: Acute (5) Substance abuse: Code(s): F19.10 - Other psychoactive substance abuse, uncomplicated Status: Chronic (6) Peripheral neuropathy: Qualifiers: Peripheral neuropathy type: polyneuropathy, unspecified Qualified Code(s): G62.9 - Polyneuropathy, unspecified Code(s): G62.9 - Polyneuropathy, unspecified Status: Chronic (7) Depression with anxiety: Code(s): F41.8 - Other specified anxiety disorders Status: Chronic Plan 38-year-old with history type diabetes diabetic elevated blood sugar. Started gastric insulin hypotensive on presentation with tachycardia. She diagnosed with DKA received fluid boluses was admitted to the ICU on insulin drip. Blood sugar was 764 bicarb 16 acidotic pH of 7.30 leukocytosis WBC count of 20 kg. Mild LAURENCE noted as well. She has been transition to and lispro after closure of the gap. Lipase was normal AST ALT mildly elevated. Morphine p.r.n.. Still persistent epigastric pain. Acute vulvovaginitis noted received fluconazole history of depression and anxiety on home medication. DVT prophylaxis Lovenox recent infection of the skin treated with antibiotics. Recheck WBC normalized today. Persistent epigastric pain severe will CT abdomen today to further evaluate. Add PPI and Carafate Subjective Date/time seen: 06/25/23 10:36 Interval history: 38-year-old with history type diabetes diabetic elevated blood sugar. Started gastric insulin hypotensive on presentation with tachycardia. She diagnosed with DKA received fluid boluses was admitted to the ICU on insulin drip. Blood sugar was 764 bicarb 16 acidotic pH of 7.30 leukocytosis WBC count of 20 kg. Mild LAURENCE noted as well. She has been transition to and lispro after closure of the gap. Lipase was normal AST ALT mildly elevated. Morphine p.r.n.. Still persistent epigastric pain. Acute vulvovaginitis noted received fluconazole history of depression and anxiety on home medication 06/25/2023: Patient still has epigastric pain. Some nausea persists. Able to tolerate food. Labs reviewed. No vomiting Review of Systems Review of Systems: All systems reviewed & are unremarkable except as noted in HPI and below Exam Narrative: General: Pleasant female in no acute distress HEENT:? Pupils equal and reactive, dry oral mucosa, sclera is clear Neck:? Supple, no lymphadenopathy Respiratory:? Clear to auscultation bilaterally Cardiac:? S1-S2 normal, regular rate and rhythm Abdomen:? Soft, epigastric tenderness, nondistended, normoactive bowel sounds Extremities:? No edema, palpable pedal pulses Neuro:? Patient is awake, alert, oriented, nonfocal Skin:? Multiple tattoos Psych:? Normal mentation and affect Objective Data Vital Signs Vital Signs: Vital Signs - 24 hr 06/24/23 16:00 06/24/23 20:58 06/25/23 05:37 Temperature 98.3 F 98 F 97.7 F Pulse Rate 92 77 86 Respiratory Rate 21 H 16 16 Blood Pressure 119/82 114/79 109/70 Pulse Oximetry 100 98 97 Oxygen Delivery 06/25/23 08:37 Temperature Pulse Rate Respiratory Rate 16 Blood Pressure Pulse Oximetry 96 Oxygen Delivery Room Air Intake/Output Intake/Output: Intake & Output 06/22/23 06/23/23 06/24/23 06/25/23 23:59 23:59 23:59 23:59 Intake Total 4000 6497 [id number]
[2023-06-25] MEDS: PANTOPRAZOLE SODIUM IV 40 MG VIAL IV PUSH (11:02)
[2023-06-25] MEDS: SUCRALFATE 1 GM TABLET PO ×3 (11:04→21:11)
[2023-06-25 11:31] LABS: Glucose Point of Care 68 mg/dl (65-105)
[2023-06-25] MEDS: GLUCOSE ORAL GEL 15 GM OF GLUCSE IN 37.5 GM TUBE PO (11:36)
[2023-06-25 12:00] LABS: Glucose Point of Care 100 mg/dl (65-105)
[2023-06-25 14:15] VITALS: BP 120/73; PULSE 83; RESP 18; TEMP 36.8; O2SAT 98
[2023-06-25 17:14] LABS: Glucose Point of Care 193 mg/dl (65-105)
[2023-06-25 21:05] VITALS: BP 125/80; PULSE 74; RESP 16; TEMP 36.9; O2SAT 98
[2023-06-25] MEDS: INSULIN GLARGINE (*BKC) 100 UNITS/ML 15 UNITS SUB-Q (21:07)
[2023-06-25] MEDS: QUEtiapine FUMARATE 100 MG TABLET 400 MG PO (21:10)
[2023-06-25 21:13] LABS: Glucose Point of Care 115 mg/dl (65-105)
[2023-06-26 03:13] LABS: Glucose Point of Care 153 mg/dl (65-105)
[2023-06-26 03:55] VITALS: BP 114/83; PULSE 87; RESP 18; TEMP 36.4; O2SAT 98
[2023-06-26] MEDS: MORPHINE SULFATE (*CRX) 2 MG/ML INJ IV PUSH (04:25)
[2023-06-26] MEDS: SUCRALFATE 1 GM TABLET PO (06:28)
[2023-06-26 07:10] LABS: Glucose Point of Care 188 mg/dl (65-105)
[2023-06-26] MEDS: PANTOPRAZOLE SODIUM IV 40 MG VIAL IV PUSH (08:06)
[2023-06-26 08:07] VITALS: RESP 18; O2SAT 98
[2023-06-26] MEDS: busPIRone HCL 10 MG TABLET 30 MG PO (08:07)
[2023-06-26] MEDS: ENOXAPARIN 40 MG/0.4 ML SYRINGE SUB-Q (08:07)
[2023-06-26] MEDS: NICOTINE (*PBKC) 14 MG PATCH 1 PATCH TRANSDERM (08:07)
[2023-06-26] MEDS: INSULIN ASPART (*BKC) 100 UNITS/ML SUB-Q ×2 (08:43→08:44)
[2023-06-26 08:44] LABS: Glucose Point of Care 205 mg/dl (65-105)
--- NOTE | 2023-06-26 10:06 | PM.DS ---
DS: Admitting Diagnosis Discharge Date 06/26/2023 Admitting Diagnosis DKA DS: Discharge Diagnosis Discharge Diagnosis (1) DKA (diabetic ketoacidosis): Qualifiers: Diabetes mellitus complication detail: without coma Diabetes mellitus type: type 1 Qualified Code(s): E10.10 - Type 1 diabetes mellitus with ketoacidosis without coma Code(s): E11.10 - Type 2 diabetes mellitus with ketoacidosis without coma Status: Acute (2) Upper abdominal pain: Code(s): R10.10 - Upper abdominal pain, unspecified Status: Acute (3) Vulvovaginitis: Code(s): N76.0 - Acute vaginitis Status: Acute (4) Tobacco dependence: Code(s): F17.200 - Nicotine dependence, unspecified, uncomplicated Status: Acute (5) Substance abuse: Code(s): F19.10 - Other psychoactive substance abuse, uncomplicated Status: Chronic (6) Peripheral neuropathy: Qualifiers: Peripheral neuropathy type: polyneuropathy, unspecified Qualified Code(s): G62.9 - Polyneuropathy, unspecified Code(s): G62.9 - Polyneuropathy, unspecified Status: Chronic (7) Depression with anxiety: Code(s): F41.8 - Other specified anxiety disorders Status: Chronic DS: Summary Hospital Course Hospital Course: 38-year-old with history type diabetes presented with elevated blood sugar.? She was also hypotensive on presentation with tachycardia.? She diagnosed with DKA received fluid boluses was admitted to the ICU on insulin drip.? Blood sugar was 764 bicarb 16 acidotic pH of 7.30 leukocytosis WBC count of 20 k.? Mild LAURENCE noted as well.? She has been transition to and lispro after closure of the gap.? Lipase was normal AST ALT mildly elevated.? Morphine p.r.n..? She still persistent epigastric pain.? Acute vulvovaginitis noted received fluconazole during the hospital stay. History of depression and anxiety on home medication.? DVT prophylaxis Lovenox recent infection of the skin treated with antibiotics with treatment.? Recheck WBC normalized without antibiotics.? Persistent epigastric pain severe and evaluated with CT abdomen which was negative.? Added on PPI and Carafate with improvement in the pain. 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 She has insulin pump and will resume insulin pump at discharge. She has Lantus and lispro at home as backup in case insulin pump does not work Time Spent with Patient Time attestation: Total time spent providing and/or coordinating discharge services: 40 minutes Exam Narrative: General: Pleasant female in no acute distress HEENT:? Pupils equal and reactive, dry oral mucosa, sclera is clear Neck:? Supple, no lymphadenopathy Respiratory:? Clear to auscultation bilaterally Cardiac:? S1-S2 normal, regular rate and rhythm Abdomen:? Soft, epigastric tenderness, nondistended, normoactive bowel sounds Extremities:? No edema, palpable pedal pulses Neuro:? Patient is awake, alert, oriented, nonfocal Skin:? Multiple tattoos Psych:? Normal mentation and affect DS: Data Data Completed and Pending Labs on day of discharge: Labs from last 24 hours 06/26/23 06/26/23 06/26/23 08:41 06:54 03:08 POC Capillary Glucose 205 H 188 H 153 H 06/25/23 06/25/23 06/25/23 21:10 17:09 11:58 POC Capillary Glucose 115 H 193 H 100 06/25/23 11:28 POC Capillary Glucose 68 Imaging Radiologist's impression: ITS Impressions Chest X-Ray 06/23/23 16:50 IMPRESSION: 1. No acute cardiopulmonary abnormality. Abdomen/Pelvis CT 06/25/23 18:18 IMPRESSION: No acute abdominopelvic process detected. Discharge Plan Discharge Attending physician on discharge: Carlos Long Consulting providers: Stephany Nuñez Discharging Clinician: Carlos Long Anticipated Discharge Date/Time: 06/26/23 10:04 Patient Disposition: Home, Self-Care Activity: as tolerated Diet: diabetic Discharge Instruction
== END 2023-06-26 10:30 | disposition home or self-care (01) ==
LOC: ANHED 18:33 → ANHICU 06-24 00:34 → ANH3MED 06-26 09:44 → ANHICU 06-28 09:29
PROVIDERS: Student in an Organized Health Care Education/Training Program; Admitting Provider Student in an Organized Health Care Education/Training Program; Emergency Provider Student in an Organized Health Care Education/Training Program; PCP Family Medicine; Visit Provider Internal Medicine
DX: E10.10 Type 1 diabetes mellitus with ketoacidosis without coma (principal); E10.40 Type 1 diabetes mellitus with diabetic neuropathy, unspecified; E10.65 Type 1 diabetes mellitus with hyperglycemia; E10.51 Type 1 diabetes mellitus with diabetic peripheral angiopathy without gangrene; E10.319 Type 1 diabetes mellitus with unspecified diabetic retinopathy without macular edema; R10.10 Upper abdominal pain, unspecified; N17.9 Acute kidney failure, unspecified; Z20.822 Contact with and (suspected) exposure to COVID-19; N76.0 Acute vaginitis; D64.9 Anemia, unspecified; F41.8 Other specified anxiety disorders; R06.02 Shortness of breath; F32.A Depression, unspecified; M79.7 Fibromyalgia; K21.9 Gastro-esophageal reflux disease without esophagitis; F19.10 Other psychoactive substance abuse, uncomplicated; F17.210 Nicotine dependence, cigarettes, uncomplicated; F12.90 Cannabis use, unspecified, uncomplicated; M81.0 Age-related osteoporosis without current pathological fracture; Z86.14 Personal history of Methicillin resistant Staphylococcus aureus infection; Z79.4 Long term (current) use of insulin; Z79.3 Long term (current) use of hormonal contraceptives
CPT/HCPCS: 36415; 36600; 71046; 74176; 80048; 80053; 81003; 82803; 82805; 82948; 83036; 83690; 83735; 84100; 85025; 86140; 86308; 87635; 96361; 96365; 96366; 96372; 96374; 96375; 96376; 99285; A9270; C9113; G0378; G0379; J1650; J1815; J2270; J2405; J3480; J7030; J7120

== ENCOUNTER 2023-06-27 14:29 | Observation (INO) | payer OTHER, SELFPAY ==
[2023-06-27] VITALS (11 sets, daily range): BP systolic 107–131; BP diastolic 78–94; PULSE 81–99; RESP 14–19; TEMP 36.4; O2SAT 97–100
--- NOTE | ~2023-06-27 | NM_ITS ---
EXAM: NM gastric emptying study DATE: 06/30/2023 13:08 INDICATION: Gastric retention. TECHNIQUE: A gastric emptying study was performed using the methodology of Sonny WONG, et al. J Nucl Med 2007; 48:568-572. The patient was given a meal consisting of 2 scrambled eggs labeled with 0.930 mCi Tc-99m sulfur colloid, 2 slices of toast, two packages of jam, and approximately 120 mL of water . Simultaneous anterior and posterior 1-min images of the abdomen were obtained with the patient supi ne at multiple time points over a total period of 4 hours. The geometric mean of anterior and posteri or views was determined, and the percentage retention was calculated for each time point. COMPARISON: CT 06/25/2023 FINDINGS: Gastric retention of the radiotracer-labeled meal was 56%, 58%, and 49% at the 1-hour, 2-h our, and 4-hour time points, respectively. With this technique, apparent rapid gastric emptying is castano ggested by <30% gastric retention at 1 hour. Delayed gastric emptying is defined by gastric retention of >90% at 1 hour, >60% retention at 2 hours, or >10% retention at 4 hours. IMPRESSION: 1. Delayed gastric emptying. Reviewed, dictated and finalized at location A.
[2023-06-27 14:55] LABS: Glucose Point of Care > 500 mg/dl (65-105)
[2023-06-27 15:06] LABS: Basophils Percent Auto 0.5 % (0.2-1.2); Eosinophils Absolute Auto 0.1 K/mm3 (0-0.3); Eosinophils Percent Auto 1.5 % (0-4.4); Hematocrit 37.3 % (37.0-47.0); Hemoglobin 12.3 g/dL (12.0-15.0); Immature Granulocyte Absolute 0.03 K/mm3 (0.00-0.031); Immature Granulocyte Percent A 0.5 % (0-0.5); Lymphocytes Absolute Auto 1.42 K/mm3 (0.9-3.2); Lymphocytes Percent Auto 23.7 % (18.3-44.2); Mean Corpuscular Hemoglobin 30.6 pg (26-34); Mean Corpuscular Volume 92.8 fl (80-100); Mean Platelet Volume 10.5 fl (7.4-10.4); Monocytes Absolute Auto 0.4 K/mm3 (0.1-0.6); Monocytes Percent Auto 7.2 % (2.6-8.5); Neutrophils Percent Auto 66.6 % (45.5-73.1); Platelet Count Result 147 k/mm3 (150-375); Red Blood Count 4.02 M/mm3 (4.2-5.4)
[2023-06-27 15:22] LABS: Alanine Aminotransferase 48 U/L (6-35); Albumin Level 4.6 g/dL (3.5-5.1); Alkaline Phosphatase 141 U/L (38-126); Anion Gap 16 mmol/L (8-16); Aspartate Amino Transferase 55 U/L (14-36); Bilirubin,Total 0.8 mg/dL (0.2-1.3); Blood Urea Nitrogen 25 mg/dL (7-17); Calcium 10.2 mg/dL (8.4-10.2); Carbon Dioxide 23 mmol/L (22-30); Chloride 91 mmol/L (98-107); Estimated CRCL calculation 66 ml/min; Estimated Glomerular Filt Rate > 60; Glucose 604 mg/dL (65-110); Magnesium 1.8 mg/dL (1.6-2.3); Phosphorus 4.9 mg/dL (2.5-4.5); Potassium 4.5 mmol/L (3.4-5.0); Sodium 130 mmol/L (137-145)
[2023-06-27 15:24] LABS: Appearance Urine Clear (Clear); Bilirubin Urine Negative (Negative); Blood Urine Negative (Negative); Color Urine Yellow (Yellow); Glucose Urine UA 3+ mg/dL (Negative); Ketones Urine 2+ mg/dL (Negative); Leukocyte Esterase Ur Negative LEU/UL (Negative); Nitrate Urine Negative (Negative); Protein Urine Negative (Negative); Specific Grav Ur 1.028 (1.001-1.035); Urobilinogen Urine 0.2 mg/dL (<2.0); pH Urine 5.5 (5.0-9.0)
[2023-06-27 15:34] LABS: Add Urine Microscopic? NO
[2023-06-27 15:35] LABS: Beta-Hydroxybutyrate/Acetoacetate 4.63 mmol/L (0.02-0.27)
[2023-06-27 16:40] LABS: Glucose Point of Care > 500 mg/dl (65-105)
--- NOTE | 2023-06-27 16:53 | ED.GENADULT ---
HPI - General Adult General Chief complaint: Recheck/Abnormal Lab/Rx Stated complaint: hyperglycemia Time Seen by Provider: 06/27/23 16:02 History of Present Illness HPI narrative: 38-year-old female with history of DKA and insulin pump presented the emergency department for evaluation of hyperglycemia and decreased p.o. intake. Patient states she has been using her insulin pump but her blood sugars have been poorly controlled running greater than 600. Patient reports she was started on new medication the for her stomach but has not yet had the chance to start these medications. These include Protonix and Carafate. Patient reports decreased p.o. intake and persistent abdominal discomfort. Related Data Home Medications Medication Instructions Recorded Confirmed buspirone 30 mg tablet 30 mg PO BID 08/25/19 06/23/23 insulin lispro 100 unit/mL See Rx Instructions .Route .COMPLEX 06/23/20 06/23/23 subcutaneous solution (Admelog U-100 Insulin lispro) insulin glargine 100 unit/mL See Rx Instructions .Route .COMPLEX 01/03/21 06/23/23 subcutaneous solution (Lantus U-100 Insulin) fluvoxamine 100 mg tablet 150 mg PO BID 05/05/21 06/23/23 estradiol 2 mg tablet 2 mg PO .QD 02/07/23 06/23/23 lorazepam 0.5 mg tablet 0.5 mg PO TID PRN Anxiety 02/07/23 06/23/23 quetiapine 400 mg tablet (Seroquel) 400 mg PO QHS 02/07/23 06/23/23 Allergies Allergy/AdvReac Type Severity Reaction Status Date / Time adhesive tape Allergy Mild Rash Verified 06/27/23 15:35 Review of Systems Review of Systems: All systems reviewed & are unremarkable except as noted in HPI and below [facility] Past Medical History Medical History (Updated 06/27/23 @ 17:01 by Anders Rivera MD) Achilles tendinitis, left leg Anemia Sees Dr. 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 History of foot surgery x5, L foot due to drop foot s/p diabetic coma History of tonsillectomy History of total hysterectomy Family History Family History Mother Family history of chronic obstructive pulmonary disease Atrial tachycardia Emphysema lung MAIC (mycobacterium avium-intracellulare complex) Father Acute myocardial infarction Grandparent Bone cancer Other Cerebrovascular accident Diabetes mellitus Family history of arthritis Family history of coronary artery disease Family history of malignant neoplasm Family history of malignant neoplasm of breast Social History Social History (Updated 06/23/23 @ 20:05 by Ruby Kim APRN) Social History: Patient currently lives at home with and two children (6 and 9) as of 06/23/23. Patient requested , Frank Mann, act as surrogate decision maker. Smoking packs per day: 1 Smoking cigarettes per day: 20.0 Years smoked: 25 Smoking pack-years: 25.00 Smoking status: Current every day smoker Tobacco type: cigarettes Second hand tobacco smoke exposure: Yes Additional smoking assessment comments: Assessed for readiness to quit (Jun 2023), patient not ready. Alcohol intake: never Drinks per week: 0 Substance use: current Substance use type: marijuana Other substance usage details: Uses marijuana every day. Last use: DAILY Lack of Transportation: No Lack of Food: Never True Current Housing: I Have Housing Concerned About Future Housing: No Difficulty Paying Gas/Electric Bills: No Diffi
[2023-06-27] MEDS: SODIUM CHLORIDE 0.9% IV 1,000 ML 999 ML IV CONT ×2 (17:04)
[2023-06-27] MEDS: INSULIN HUMAN REGULAR (*BKC) 100 UNITS/ML 10 UNITS IV PUSH (17:05)
[2023-06-27 17:10] LABS: Glucose Point of Care 447 mg/dl (65-105)
[2023-06-27] MEDS: INSULIN HUMAN REGULAR (*BKC) 100 UNITS in SODIUM CHLORIDE 0.9% IV 99 ML 6.5 UNITS IV CONT (17:10)
[2023-06-27 18:07] LABS: Glucose Point of Care 307 mg/dl (65-105)
--- NOTE | 2023-06-27 18:29 | PM.IMHP ---
H&P: HPI History of Present Illness Date/Time: 06/27/23 18:30 Chief Complaint: High glucose and abdominal pain. Narrative: This is a 38-year-old female with type 1 diabetes mellitus, GERD, and remote history of peptic ulcers who presented to the emergency department via private vehicle from home for evaluation of high glucose. The patient provides the following history. She was discharged from the hospital just yesterday following a 3 day admission for diabetic ketoacidosis. She was having upper abdominal pain at that time as well and was started on Protonix and Carafate though she has yet to have those filled. At times the burning pain will get so severe that she starts to see stars and feels as though she may ?white out. She was feeling okay on discharge and she was able to go to work today. While at work she once again started having severe, non-radiating, burning pain in the epigastric region. She checked her glucose reports that it was over 400 and so she gave herself a bolus. She did not have much to eat today as her appetite has been poor and she thought it was strange that her glucose was so high so she replaced the insulin pump site and line in case there was a problem in that regard. Unfortunately her glucose continued to climb to greater than 600 and she came in for evaluation. She denies fever, syncope, exertional chest pain, pleuritic pain, racing heart, shortness of breath, hematemesis, melena, and hematochezia. She denies dysuria but does complain of continued symptoms of vulvovaginitis and is requesting another dose of Diflucan. Of note she does not have her continuous glucose monitor on at this time and has not had 1 for several months, she denies that she needs to have the monitor for the pump to work appropriately. In any regard, she was hyperglycemic with elevated beta hydroxybutyrate and increased anion gap and she has been started on insulin drip. Review of Systems Review of Systems: Twelve systems were reviewed and are negative except for as per HPI. [facility] Past Medical History Medical History Achilles tendinitis, left leg Anemia Sees Dr. 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 History of foot surgery x5, L foot due to drop foot s/p diabetic coma History of tonsillectomy History of total hysterectomy Family History Family History Mother Family history of chronic obstructive pulmonary disease Atrial tachycardia Emphysema lung MAIC (mycobacterium avium-intracellulare complex) Father Acute myocardial infarction Grandparent Bone cancer Other Cerebrovascular accident Diabetes mellitus Family history of arthritis Family history of coronary artery disease Family history of malignant neoplasm Family history of malignant neoplasm of breast Social History Social History (Updated 07/02/23 @ 16:05 by Lili Grier PA-C) Social History: Surrogate medical decision maker: Frank Mann, . Code status: Full code. Smoking packs per day: 1 Smoking cigarettes per day: 20.0 Years smoked: 25 Smoking pack-years: 25.00 Smoking status: Current every day smoker Second hand tobacco smoke exposure: Yes Additional smoking assessment comments: Assessed for readiness to quit (Jun 2023), patient not ready. Alcohol intake: current Drinks per week
[2023-06-27] MEDS: MORPHINE SULFATE (*CRX) 2 MG/ML INJ IV PUSH ×2 (18:39→23:41)
[2023-06-27] MEDS: FLUCONAZOLE 100 MG TABLET PO (18:39)
[2023-06-27 19:06] LABS: Glucose Point of Care 223 mg/dl (65-105)
[2023-06-27 20:12] LABS: Glucose Point of Care 123 mg/dl (65-105)
[2023-06-27] MEDS: KCL 20 MEQ/D5/0.45% SOD CHL 1,000 ML 150 ML IV CONT (20:57)
[2023-06-27 21:05] LABS: Glucose Point of Care 130 mg/dl (65-105)
[2023-06-27 21:19] LABS: Anion Gap 7 mmol/L (8-16); Blood Urea Nitrogen 22 mg/dL (7-17); Calcium 9.2 mg/dL (8.4-10.2); Carbon Dioxide 26 mmol/L (22-30); Chloride 103 mmol/L (98-107); Estimated CRCL calculation 82 ml/min; Estimated Glomerular Filt Rate > 60; Glucose 117 mg/dL (65-110); Potassium 4.1 mmol/L (3.4-5.0); Sodium 136 mmol/L (137-145)
[2023-06-27] MEDS: QUEtiapine FUMARATE 100 MG TABLET 400 MG PO (22:43)
[2023-06-27] MEDS: PANTOPRAZOLE SODIUM IV 40 MG VIAL IV PUSH (22:45)
[2023-06-27] MEDS: LORazepam (*CRX) 0.5 MG TABLET PO (22:47)
[2023-06-27] MEDS: busPIRone HCL 10 MG TABLET 30 MG PO (22:48)
[2023-06-27] MEDS: PHARMACIST COMMUNICATION ORDER 1 EACH XX (22:49)
[2023-06-27] MEDS: SODIUM CHLORIDE 0.9% IV 1,000 ML 150 ML IV CONT (22:50)
[2023-06-27 22:57] LABS: Glucose Point of Care 149 mg/dl (65-105)
[2023-06-27 23:34] LABS: Glucose Point of Care 145 mg/dl (65-105)
--- NOTE | 2023-06-27 23:57 | P.PNCROSS_ITS ---
Event Note Event Note Event Note: I went and evaluated the patient in the ER to obtain her pump settings. Her in sulin pump settings are insulin to carb ratio 1 unit for every 15 g of carbohydrates. Her insulin infusion rate from midnight to 03:00 is 0.975 from from 03:00 to 08:00 is 0.8 units and from 08:00 until midnight is 0.75 units. The patient's last A1c was 12. She reports longstanding history of diabetic peripheral neuropathy. She does have some mild diabetic retinopathy. She does report symptoms of orthostatic hypotension which I suspect is likely due to developing autonomic dysfunction from longstanding diabetes. She does report chest discomfort in throat pain suspicious for reflux. She also reports symptoms of ?yomi out? for vision when this happens. This sounds like the patient is having some anxiety associated with her reflux symptoms. The patient is at increased risk of coronary disease given her uncontrolled diabetes and tobacco use. If recurrence of pain occurs while hospitalized may consider cardiac evaluation. She has not had the symptoms yomi out since prior to her last hospitalization. Management strategies for hyperglycemic events and insulin adjustments in the setting of possible gastroparesis were discussed with the patient in detail. 35 minute spent in additional diabetic management counseling with the patient in addition to the PAs assessment for history and physical.
--- NOTE | 2023-06-28 00:35 | PC.NURSE ---
This patient, Sole Grullon, was admitted to Medical Room 348-01. Patient/family oriented to hospital policies and general routines including ID bracelet, bed and alarms, visiting hours, pain management, procedures, bathroom and other care routines, personal items, smoking policy, room service/diet, and visiting hours. Information on how to activate the Rapid Response Team has been discussed. Patient/Family are encouraged to report perceived risks to care and to ask questions if they do not understand what they are told or what they should do.
[2023-06-28 00:38] VITALS: BMI 23.3
[2023-06-28 00:41] VITALS: BP 116/76; PULSE 86; RESP 18; TEMP 36.1; O2SAT 99
[2023-06-28] MEDS: INSULIN GLARGINE (*BKC) 100 UNITS/ML 20 UNITS SUB-Q (00:45)
[2023-06-28 01:33] LABS: Anion Gap 8 mmol/L (8-16); Blood Urea Nitrogen 18 mg/dL (7-17); Calcium 8.9 mg/dL (8.4-10.2); Carbon Dioxide 25 mmol/L (22-30); Chloride 103 mmol/L (98-107); Estimated CRCL calculation 92 ml/min; Estimated Glomerular Filt Rate > 60; Glucose 184 mg/dL (65-110); Potassium 3.5 mmol/L (3.4-5.0); Sodium 136 mmol/L (137-145)
[2023-06-28 04:12] LABS: Glucose Point of Care 167 mg/dl (65-105)
[2023-06-28 05:27] LABS: Hemoglobin 9.8 g/dL (12.0-15.0); Immature Platelet Fraction Pct 5.5 % (0.9-11.2); Mean Corpuscular HGB Conc 32.7 g/dl (32-36); Mean Corpuscular Hemoglobin 30.2 pg (26-34); Mean Corpuscular Volume 92.3 fl (80-100); Mean Platelet Volume 10.3 fl (7.4-10.4); Platelet Count Result 131 k/mm3 (150-375); Red Blood Count 3.25 M/mm3 (4.2-5.4); White Blood Count 5.4 K/mm3 (4.5-10.0)
[2023-06-28 05:28] VITALS: BP 103/71; PULSE 103; RESP 16; TEMP 36.6; O2SAT 94
[2023-06-28] MEDS: SUCRALFATE 1 GM TABLET PO ×4 (05:31→23:43)
[2023-06-28] MEDS: MORPHINE SULFATE (*CRX) 2 MG/ML INJ IV PUSH ×5 (05:31→23:06)
[2023-06-28] MEDS: SODIUM CHLORIDE 0.9% IV 1,000 ML 150 ML IV CONT ×3 (05:31→18:52)
[2023-06-28 05:38] LABS: Alanine Aminotransferase 47 U/L (6-35); Alkaline Phosphatase 87 U/L (38-126); Anion Gap 7 mmol/L (8-16); Aspartate Amino Transferase 70 U/L (14-36); Bilirubin,Total 0.5 mg/dL (0.2-1.3); Blood Urea Nitrogen 15 mg/dL (7-17); Calcium 8.7 mg/dL (8.4-10.2); Carbon Dioxide 23 mmol/L (22-30); Chloride 106 mmol/L (98-107); Estimated CRCL calculation 106 ml/min; Estimated Glomerular Filt Rate > 60; Glucose 186 mg/dL (65-110); Magnesium 1.5 mg/dL (1.6-2.3); Potassium 3.8 mmol/L (3.4-5.0); Sodium 136 mmol/L (137-145)
[2023-06-28 08:11] LABS: Glucose Point of Care 177 mg/dl (65-105)
[2023-06-28] MEDS: NICOTINE (*PBKC) 21 MG PATCH 1 PATCH TRANSDERM (09:11)
[2023-06-28] MEDS: busPIRone HCL 10 MG TABLET 30 MG PO ×2 (09:11→16:59)
[2023-06-28] MEDS: PANTOPRAZOLE SODIUM IV 40 MG VIAL IV PUSH ×2 (09:11→20:41)
[2023-06-28] MEDS: LORazepam (*CRX) 0.5 MG TABLET PO ×2 (09:17→20:45)
[2023-06-28 09:52] LABS: Anion Gap 6 mmol/L (8-16); Blood Urea Nitrogen 14 mg/dL (7-17); Calcium 8.6 mg/dL (8.4-10.2); Carbon Dioxide 25 mmol/L (22-30); Chloride 106 mmol/L (98-107); Estimated CRCL calculation 106 ml/min; Estimated Glomerular Filt Rate > 60; Glucose 182 mg/dL (65-110); Potassium 3.9 mmol/L (3.4-5.0); Sodium 137 mmol/L (137-145)
--- NOTE | 2023-06-28 10:17 | WPDGICN ---
Assessment and Plan Assessment and plan (1) Diabetes type 1, uncontrolled: Qualifiers: Glycemic state: with hyperglycemia Qualified Code(s): E10.65 - Type 1 diabetes mellitus with hyperglycemia Code(s): E10.65 - Type 1 diabetes mellitus with hyperglycemia Status: Chronic Assessment and Plan: She has been diabetic for several years and dependent on insulin. She has been started on an insulin drip to control her diabetes. She had made an appointment to see her street photographer but was undergoing medical procedures and missed her last appointment. Now she cannot see her until October. (2) Upper abdominal pain: Code(s): R10.10 - Upper abdominal pain, unspecified Status: Acute Assessment and Plan: She states that she has abdominal pain which is very severe at times to the point that she almost passes out. Yesterday she was at work and developed severe pain again and subsequently came to the emergency room (3) Elevated liver function tests: Code(s): R79.89 - Other specified abnormal findings of blood chemistry Status: Acute Assessment and Plan: She has had fluctuating liver enzymes. During her recent hospitalization she had some levels were elevated and 1 that was in the normal range. Bilirubin is normal as is alkaline phosphatase. Ultrasound of the abdomen a few months ago was also unremarkable. I will obtain hepatitis serology. Otherwise I do not think any additional workup is indicated at this time but her enzymes of course need to be followed over time as an outpatient. Given her scenario with diabetes and poor control, I would suspect fatty liver would be very likely to develop in her at some point. Will order hepatitis serology. (4) Substance abuse: Code(s): F19.10 - Other psychoactive substance abuse, uncomplicated Status: Chronic Assessment and Plan: She uses marijuana daily Plan Hepatitis serology Will try diabetic diet tonight EGD tomorrow morning. The procedure and risks were discussed with her. GI Consult Note Consult date/time: 06/28/23 10:17 HPI: Sole Grullon is a 38 year old female who came to the emergency room with markedly elevated blood sugar of 600. She had been hospitalized for 3 days with diabetic ketoacidosis and was discharged just yesterday. She had expressed having abdominal pain during that hospitalization and was discharged on Carafate and Protonix but had not yet picked up those prescriptions. I noted that she has had a couple of visits to the emergency room or urgent care with nausea and vomiting with a past couple of years. Lipase has been checked several times and was always low, in the 20s. CT scan done 3 days ago does not show any acute findings. She does not use anti-inflammatory medications she has lost about 20 lb in the last few months it. She attributes that to several factors including the fact that she had a tonsillectomy and other medical issues in the last few months. Her appetite is good today and she is hungry. She has had no vomiting. A noted she has elevation of some liver enzymes although the AST and ALT have been fluctuating. Just 4 days ago the AST was normal at 31 and today is 70. She has never had hepatitis, although she is fairly certain that her mother had hepatitis-C. Review of Systems Review of Systems: All systems reviewed & are unremarkable except as noted in HPI and below PMFSH Past Medical History Medical History Achilles tendinitis, left leg Anemia Sees Dr. 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
[2023-06-28 10:45] LABS: Hepatitis B Surface Antigen Negative (Negative)
[2023-06-28 10:51] LABS: HAV RESULT Negative (Negative); Hepatitis B Core IgM Result Negative (Negative)
[2023-06-28 11:02] LABS: Hepatitis C Virus Antibody Negative (Negative)
[2023-06-28] MEDS: INSULIN ASPART (*BKC) 100 UNITS/ML SUB-Q ×3 (11:59→20:47)
[2023-06-28 12:14] LABS: Glucose Point of Care 301 mg/dl (65-105)
--- NOTE | 2023-06-28 12:16 | PM.IMPN ---
Progress Note: A&P Assessment and Plan (1) Diabetic ketoacidosis, type I: Code(s): E10.10 - Type 1 diabetes mellitus with ketoacidosis without coma Status: Acute Assessment and Plan: Significant noncompliance on outpatient basis, A1c is greater than 12 DKA protocol, resolving (2) Dehydration: Code(s): E86.0 - Dehydration Status: Acute Assessment and Plan: IV fluid resuscitation with normal saline at 150 mL/hr (3) Gastritis: Code(s): K29.70 - Gastritis, unspecified, without bleeding Status: Acute Assessment and Plan: GI consult appreciated, EGD 06/29 Continue PPI and Carafate (4) Vulvovaginitis: Code(s): N76.0 - Acute vaginitis Status: Acute Assessment and Plan: Diflucan given (5) Elevated LFTs: Code(s): R79.89 - Other specified abnormal findings of blood chemistry Status: Acute Plan DVT prophylaxis with SCDs GI prophylaxis not indicated Code status full code Subjective Date/time seen: 06/28/23 12:16 Interval history: 38-year-old female with type 1 diabetes, GERD and peptic ulcers presenting with hyperglycemia and currently being treated for DKA after being discharged the day before for recurrence of the same. No overnight events noted. No nausea, vomiting or diarrhea. No fevers or chills. She is c/o severe epigastric pain intermittently. Review of Systems Review of Systems: 12 point review of systems was assessed and was negative except as noted in the HPI Exam Narrative: General: No acute distress, alert and oriented per baseline HEENT: Atraumatic, normocephalic, mucous membranes moist CV: Regular rate and rhythm, S1, S2 Lungs: Clear to auscultation bilaterally, no rales or crackles noted, no wheezes, good air entry Abdomen: Soft, nontender, nondistended Extremities: Normal to inspection Skin: No rashes noted, no lesions or wounds seen Psych: Euthymic, normal affect Objective Data Vital Signs Vital Signs: Vital Signs - 24 hr 06/27/23 14:44 06/27/23 15:31 06/27/23 16:31 Temperature 97.6 F Pulse Rate 99 92 89 Respiratory Rate 18 17 19 Blood Pressure 125/94 H 131/89 121/92 H Pulse Oximetry 100 100 100 Oxygen Delivery Room Air 06/27/23 17:07 06/27/23 18:04 06/27/23 18:30 Temperature Pulse Rate 88 91 88 Respiratory Rate 14 19 17 Blood Pressure 128/92 H 119/89 124/81 Pulse Oximetry 100 99 100 Oxygen Delivery 06/27/23 18:43 06/27/23 19:03 06/27/23 19:30 Temperature Pulse Rate 88 88 90 Respiratory Rate 15 19 16 Blood Pressure 124/81 121/83 107/78 Pulse Oximetry 100 100 100 Oxygen Delivery 06/27/23 21:07 06/27/23 23:40 06/28/23 00:41 Temperature 97.0 F L Pulse Rate 81 88 86 Respiratory Rate 15 15 18 Blood Pressure 117/81 113/82 116/76 Pulse Oximetry 99 97 99 Oxygen Delivery 06/28/23 05:28 06/28/23 08:00 Temperature 97.8 F Pulse Rate 103 H Respiratory Rate 16 Blood Pressure 103/71 Pulse Oximetry 94 Oxygen Delivery Room Air Intake/Output Intake/Output: Intake & Output 06/25/23 06/26/23 06/27/23 06/28/23 23:59 23:59 23:59 23:59 Intake Total 2172 2240 Balance 2172 2240 Meds/Results Medications: Active Medications Generic Name Dose Route Start Last Admin Trade Name Freq PRN Reason Stop Dose Admin Acetaminophen 650 mg 06/27/23 22:48 Acetaminophen 325 Mg Tablet PO Q6H PRN Mild Pain (1-3) or Fever Buspirone HCl 30 mg 06/28/23 09:00 06/28/23 09:11 Buspirone Hcl 10 Mg Tablet PO 30 mg BID REX Administration Dextrose 12.5 gm 06/27/23 16:46 Dextrose 50% 25 Gm/50 Ml Syringe IV PUSH PRN PRN Hypoglycemia Protocol Glucagon 1 mg 06/27/23 20:34 Glucagon For Inj 1 Mg Vial IM PRN PRN Hypoglycemia Protocol Glucose 15 gm 06/27/23 16:46 Glucose Oral Gel 15 Gm Of Glucse In 37.5 Gm Tube PO PRN PRN Hypoglycemia Protoco
[2023-06-28 12:35] LABS: Anion Gap 5 mmol/L (8-16); Blood Urea Nitrogen 13 mg/dL (7-17); Calcium 8.5 mg/dL (8.4-10.2); Carbon Dioxide 26 mmol/L (22-30); Chloride 105 mmol/L (98-107); Estimated CRCL calculation 92 ml/min; Estimated Glomerular Filt Rate > 60; Glucose 291 mg/dL (65-110); Potassium 3.9 mmol/L (3.4-5.0); Sodium 136 mmol/L (137-145)
[2023-06-28 12:50] VITALS: BMI 23.3
[2023-06-28 14:00] VITALS: BP 108/77; PULSE 86; RESP 16; TEMP 36.7; O2SAT 100
[2023-06-28 17:00] LABS: Glucose Point of Care 211 mg/dl (65-105)
[2023-06-28 17:22] LABS: Anion Gap 5 mmol/L (8-16); Blood Urea Nitrogen 11 mg/dL (7-17); Calcium 8.6 mg/dL (8.4-10.2); Carbon Dioxide 26 mmol/L (22-30); Chloride 106 mmol/L (98-107); Estimated CRCL calculation 82 ml/min; Estimated Glomerular Filt Rate > 60; Glucose 223 mg/dL (65-110); Potassium 3.5 mmol/L (3.4-5.0); Sodium 137 mmol/L (137-145)
[2023-06-28 19:43] VITALS: BP 120/81; PULSE 76; RESP 20; TEMP 36.8; O2SAT 100
[2023-06-28] MEDS: QUEtiapine FUMARATE 100 MG TABLET 400 MG PO (20:41)
[2023-06-28 20:50] LABS: Glucose Point of Care 238 mg/dl (65-105)
[2023-06-28] MEDS: polyethylene glycoL 3350 17 GM POWD.PACK PO (23:08)
[2023-06-29] VITALS (7 sets, daily range): BP systolic 103–152; BP diastolic 61–89; PULSE 60–74; RESP 14–20; TEMP 36.2–36.6; O2SAT 99–100; BMI 23.3
[2023-06-29] MEDS: SODIUM CHLORIDE 0.9% IV 1,000 ML 150 ML IV CONT ×2 (02:57→10:03)
[2023-06-29] MEDS: MORPHINE SULFATE (*CRX) 2 MG/ML INJ IV PUSH ×5 (02:58→22:11)
[2023-06-29] MEDS: SUCRALFATE 1 GM TABLET PO ×3 (06:29→21:06)
[2023-06-29] MEDS: PANTOPRAZOLE SODIUM IV 40 MG VIAL IV PUSH ×2 (08:14→21:05)
[2023-06-29] MEDS: NICOTINE (*PBKC) 21 MG PATCH 1 PATCH TRANSDERM (08:14)
[2023-06-29] MEDS: LORazepam (*CRX) 0.5 MG TABLET PO ×3 (08:14→22:11)
[2023-06-29 08:49] LABS: Glucose Point of Care 229 mg/dl (65-105)
[2023-06-29 10:56] LABS: Glucose Point of Care 209 mg/dl (65-105)
--- NOTE | 2023-06-29 12:45 | PC.NURSE ---
Patient off of unit to GI lab
[2023-06-29] MEDS: LACTATED RINGERS 1,000 ML 150 ML IV CONT (12:46)
--- NOTE | 2023-06-29 12:47 | WPDANESEPPF ---
Anes - Initial Pre Proc Eval Procedure: Operation Date: 06/29/23 14:15 Proposed Procedures p Esophagogastroduodenoscopy - Ricardo Gore MD Date/Time: 06/29/23 12:47 Surgeon: Lion Hinojosa MD Pre Op Diagnosis: DKA Patient Data Age: 38 Gender: F Height: 1.7 m Weight: 67.4 kg Last Vital Signs Temp 36.4 C 06/29/23 12:37 Pulse 70 06/29/23 12:37 Resp 18 06/29/23 12:37 BP 152/89 H 06/29/23 12:37 Pulse Ox 100 06/29/23 12:37 O2 Del Method Room Air 06/29/23 12:37 Allergies Allergy/AdvReac Type Severity Reaction Status Date / Time adhesive tape Allergy Mild Rash Verified 06/27/23 15:35 Home Medications Medication Instructions Recorded Confirmed Type buspirone 30 mg tablet 30 mg PO BID 08/25/19 06/27/23 History insulin lispro 100 unit/mL See Rx Instructions .Route .COMPLEX 06/23/20 06/28/23 History subcutaneous solution (Admelog U-100 Insulin lispro) insulin glargine 100 unit/mL See Rx Instructions .Route .COMPLEX 01/03/21 06/28/23 History subcutaneous solution (Lantus U-100 Insulin) fluvoxamine 100 mg tablet 150 mg PO BID 05/05/21 06/27/23 History lorazepam 0.5 mg tablet 0.5 mg PO TID PRN Anxiety 02/07/23 06/27/23 History quetiapine 400 mg tablet (Seroquel) 400 mg PO QHS 02/07/23 06/27/23 History pantoprazole 20 mg tablet,delayed 20 mg PO QAM #30 tabs 06/26/23 06/27/23 Rx release (Protonix) sucralfate 1 gram tablet 1 g PO ACHS #30 tabs 06/26/23 06/27/23 Rx Laboratory Tests 06/28/23 06/28/23 06/28/23 16:45 16:58 20:41 Sodium 137 mmol/L (137-145) Potassium 3.5 mmol/L (3.4-5.0) Chloride 106 mmol/L (98-107) Carbon Dioxide 26 mmol/L (22-30) Anion Gap 5 L mmol/L (8-16) BUN 11 mg/dL (7-17) Creatinine 0.80 mg/dL (0.7-1.0) Estim Creat Clear Calc 82 ml/min Estimated GFR > 60 (59 - ) Glucose 223 H mg/dL (65-110) POC Capillary Glucose 211 H mg/dl 238 H mg/dl (65-105) (65-105) Calcium 8.6 mg/dL (8.4-10.2) 06/29/23 06/29/23 08:42 10:54 Sodium Potassium Chloride Carbon Dioxide Anion Gap BUN Creatinine Estim Creat Clear Calc Estimated GFR Glucose POC Capillary Glucose 229 H mg/dl 209 H mg/dl (65-105) (65-105) Calcium Patient hx anesthesia problems: none Family hx anesthesia problems: none Results Review: All pre-operative results and documents have been reviewed as part of the pre-operative evaluation. [facility] Past Medical History Medical History Achilles tendinitis, left leg Anemia Sees Dr. 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 History of foot surgery x5, L foot due to drop foot s/p diabetic coma History of tonsillectomy History of total hysterectomy Family History Family History Mother Family history of chronic obstructive pulmonary disease Atrial tachycardia Emphysema lung MAIC (mycobacterium avium-intracellulare complex) Father Acute myocardial infarction Grandparent Bone cancer Other Cerebrovascular accident Diabetes mellitus Family history of arthritis Family history of coronary artery disease Family history of malignant neoplas
[2023-06-29 12:50] LABS: Glucose Point of Care 192 mg/dl (65-105)
[2023-06-29 13:51] LABS: Glucose Point of Care 207 mg/dl (65-105)
[2023-06-29 14:33] LABS: Glucose Point of Care 199 mg/dl (65-105)
[2023-06-29] MEDS: busPIRone HCL 10 MG TABLET 30 MG PO (16:16)
[2023-06-29 17:08] LABS: Glucose Point of Care 331 mg/dl (65-105)
[2023-06-29] MEDS: INSULIN ASPART (*BKC) 100 UNITS/ML SUB-Q ×2 (17:09→21:06)
--- NOTE | 2023-06-29 17:20 | PM.IMPN ---
Progress Note: A&P Assessment and Plan (1) Diabetic ketoacidosis, type I: Code(s): E10.10 - Type 1 diabetes mellitus with ketoacidosis without coma Status: Acute Assessment and Plan: Patient returns to emergency room after being discharged the day before for abdominal pain and found to have DKA again. [place] related to noncompliance medical treatment. A1c is 12.0. Patient treated with IV fluids and insulin. Symptoms resolved. Still with mild nausea but tolerating oral intake. Not on basal insulin at this time so will add Lantus. Check BMP tonight (2) Type 1 diabetes: Qualifiers: Diabetes mellitus complication status: without complication Qualified Code(s): E10.9 - Type 1 diabetes mellitus without complications Code(s): E10.9 - Type 1 diabetes mellitus without complications Status: Acute Assessment and Plan: As above. Instructed patient to bring in her insulin pump so this can be started. (3) Dehydration: Code(s): E86.0 - Dehydration Status: Acute Assessment and Plan: Patient was started on IV fluid resuscitation with normal saline. She is voiding normally. She is starting oral intake. Will stop IV fluids. (4) Vulvovaginitis: Code(s): N76.0 - Acute vaginitis Status: Acute Assessment and Plan: Patient complaints of vulvovaginitis. She was given 1 dose of diflucan. (5) Elevated LFTs: Code(s): R79.89 - Other specified abnormal findings of blood chemistry Status: Acute Assessment and Plan: AST and ALT mildly elevated. Hepatitis panel was negative. [place] screen was negative. CT the abdomen and pelvis showed no acute findings. Continue to monitor. (6) Gastroparesis: Code(s): K31.84 - Gastroparesis Status: Acute Assessment and Plan: Patient is having epigastric pain. GI was consulted. EGD was essentially normal with the exception that there was a small amount of retained food seen in the fundus consistent with gastric retention patient may have underlying gastroparesis related to her diabetes. Gastric emptying scan will be ordered. Stop carafate? Plan DVT prophylaxis with SCDs GI prophylaxis on PPI Code status full code Subjective Date/time seen: 06/29/23 17:20 Interval history: 38-year-old female with type 1 diabetes, GERD and peptic ulcers presenting with hyperglycemia and currently being treated for DKA after being discharged the day before for recurrence of the same. Assuming care. Chart reviewed. Patient normally on insulin pump at home but not currently here. She is having epigastric abdominal pain but is tolerating oral intake. She has slight nausea but no vomiting. No bowel movement for 7 days. She denies flatus. Voiding normally. Feels like she can not empty her bladder without difficulty Exam Narrative: General: No acute distress sitting up in bed eating dinner HEENT: Atraumatic, normocephalic, mucous membranes moist CV: Regular rate and rhythm, S1, S2 Lungs: Clear to auscultation bilaterally, no rales or crackles noted, no wheezes, good air entry Abdomen: Soft, nondistended, mild epigastric pain. No guarding Extremities: Normal to inspection. No pedal edema. 2+ DP pulses bilateral Skin: No rashes noted, no lesions or wounds seen Psych: Euthymic, normal affect Objective Data Vital Signs Vital Signs: Vital Signs - 24 hr 06/28/23 19:43 06/28/23 20:00 06/29/23 04:39 Temperature 98.3 F 98 F Pulse Rate 76 74 Respiratory Rate 20 20 Blood Pressure 120/81 127/80 Pulse Oximetry 100 99 Oxygen Delivery Room Air 06/29/23 08:14 06/29/23 12:37 06/29/23 13:30 Temperature 97.6 F Pulse Rate 70 60 Respiratory Rate 18 20 Blood Pressure 152/89 H 103/61 Pulse Oximetry 100 100 Oxygen Delivery Room Air Room Air Room Air 06/29/23 13:40 06/29/23 13:50 06/29/23 14:32 Temperature 97.1 F L Pulse Rate 60 62 69 Re
[2023-06-29 18:16] LABS: Anion Gap 3 mmol/L (8-16); Blood Urea Nitrogen 10 mg/dL (7-17); Calcium 8.1 mg/dL (8.4-10.2); Carbon Dioxide 26 mmol/L (22-30); Chloride 107 mmol/L (98-107); Estimated CRCL calculation 106 ml/min; Estimated Glomerular Filt Rate > 60; Glucose 305 mg/dL (65-110); Potassium 3.4 mmol/L (3.4-5.0); Sodium 136 mmol/L (137-145)
[2023-06-29] MEDS: polyethylene glycoL 3350 17 GM POWD.PACK PO (18:27)
[2023-06-29 20:25] LABS: Glucose Point of Care 360 mg/dl (65-105)
[2023-06-29] MEDS: INSULIN GLARGINE (*BKC) 100 UNITS/ML 10 UNITS SUB-Q (21:05)
[2023-06-29] MEDS: QUEtiapine FUMARATE 100 MG TABLET 400 MG PO (21:06)
[2023-06-30] MEDS: MORPHINE SULFATE (*CRX) 2 MG/ML INJ IV PUSH ×2 (04:05→12:57)
[2023-06-30 05:09] VITALS: BP 122/76; PULSE 76; RESP 14; TEMP 36.4; O2SAT 97
[2023-06-30 05:57] LABS: Basophils Percent Auto 0.7 % (0.2-1.2); Eosinophils Absolute Auto 0.4 K/mm3 (0-0.3); Eosinophils Percent Auto 7.1 % (0-4.4); Hematocrit 28.2 % (37.0-47.0); Hemoglobin 9.7 g/dL (12.0-15.0); Immature Granulocyte Absolute 0.02 K/mm3 (0.00-0.031); Immature Granulocyte Percent A 0.4 % (0-0.5); Immature Platelet Fraction Pct 5.1 % (0.9-11.2); Lymphocytes Absolute Auto 1.92 K/mm3 (0.9-3.2); Lymphocytes Percent Auto 34.9 % (18.3-44.2); Mean Corpuscular HGB Conc 34.4 g/dl (32-36); Mean Corpuscular Hemoglobin 31.2 pg (26-34); Mean Corpuscular Volume 90.7 fl (80-100); Mean Platelet Volume 10.2 fl (7.4-10.4); Monocytes Absolute Auto 0.6 K/mm3 (0.1-0.6); Neutrophils Absolute Auto 2.6 K/mm3 (1.3-6.7); Neutrophils Percent Auto 46.9 % (45.5-73.1); Platelet Count Result 135 k/mm3 (150-375); Red Blood Count 3.11 M/mm3 (4.2-5.4); Red Cell Distribution Width 11.9 % (11.5-14.5); White Blood Count 5.5 K/mm3 (4.5-10.0)
[2023-06-30 06:07] LABS: Alanine Aminotransferase 54 U/L (6-35); Alkaline Phosphatase 91 U/L (38-126); Anion Gap 2 mmol/L (8-16); Aspartate Amino Transferase 67 U/L (14-36); Bilirubin,Total 0.4 mg/dL (0.2-1.3); Blood Urea Nitrogen 10 mg/dL (7-17); Calcium 8.6 mg/dL (8.4-10.2); Carbon Dioxide 29 mmol/L (22-30); Chloride 107 mmol/L (98-107); Estimated CRCL calculation 106 ml/min; Estimated Glomerular Filt Rate > 60; Glucose 139 mg/dL (65-110); Potassium 3.5 mmol/L (3.4-5.0); Sodium 138 mmol/L (137-145)
--- NOTE | 2023-06-30 07:19 | WPDGIPROGNO ---
Progress Note: A&P Assessment and Plan (1) Diabetes type 1, uncontrolled: Qualifiers: Glycemic state: with hyperglycemia Qualified Code(s): E10.65 - Type 1 diabetes mellitus with hyperglycemia Code(s): E10.65 - Type 1 diabetes mellitus with hyperglycemia Status: Chronic Assessment and Plan: She has been diabetic for several years and dependent on insulin. She has been started on an insulin drip to control her diabetes. She had made an appointment to see her rn intern but was undergoing medical procedures and missed her last appointment. Now she cannot see her until October. (2) Upper abdominal pain: Code(s): R10.10 - Upper abdominal pain, unspecified Status: Acute Assessment and Plan: She states that she has abdominal pain which is very severe at times to the point that she almost passes out. Yesterday she was at work and developed severe pain again and subsequently came to the emergency room EGD was negative except for showing some gastric retention. Was not a large amount. This is likely due to her diabetes but could also be a side effect of Seroquel which she takes at bedtime. (3) Elevated liver function tests: Code(s): R79.89 - Other specified abnormal findings of blood chemistry Status: Acute Assessment and Plan: She has had fluctuating liver enzymes. During her recent hospitalization she had some levels were elevated and 1 that was in the normal range. Bilirubin is normal as is alkaline phosphatase. Ultrasound of the abdomen a few months ago was also unremarkable. I will obtain hepatitis serology. Otherwise I do not think any additional workup is indicated at this time but her enzymes of course need to be followed over time as an outpatient. Given her scenario with diabetes and poor control, I would suspect fatty liver would be very likely to develop in her at some point. Will order hepatitis serology. (4) Substance abuse: Code(s): F19.10 - Other psychoactive substance abuse, uncomplicated Status: Chronic Assessment and Plan: She uses marijuana daily Plan EGD shown some gastric retention. Gastric emptying scan is normal at 1 and 2 hours but at 4:00 a.m. she has more than 10% residual which is abnormal. Unfortunately, she would not be a candidate for Reglan because she takes quetiapine at bedtime, in fact a large dose, 400 mg and they are not compatible together. I will emphasize to her the importance of not snacking between meals to give her stomach a time to recuperate and again remind her to try to discontinue or decrease use of cannabis. From my perspective she can be discharged today Subjective Date/time seen: 06/30/23 07:19 her only complaint today is that she is still having pain in his central abdomen above the umbilicus. We discussed her EGD yesterday which was remarkable only for having some retained food. This is likely due to diabetes. Will obtain a gastric emptying scan this morning. Then I think she could be discharged and further workup as an outpatient Exam Const: General: cooperative and healthy appearing Orientation/consciousness: patient oriented x3 HENMT: Head: normal to inspection Ears: hearing grossly normal bilaterally Mouth: Yes Normal oral and palatal mucosa present Eyes: General: appearance normal, both eyes and all related structures Neck: Neck: normal visual inspection Chest: Chest palpation & inspection: normal inspection of the chest Resp: Effort & Inspection: normal respiratory effort Auscultation: clear to auscultation bilaterally Cardio: Rate: regular rate Rhythm: regular rhythm GI: Inspection: normal to inspection GI Palp: Yes abdominal tenderness ( nonlocalizing tenderness on palpation throughout the abdomen), Yes Soft to palpation and Yes No hepatosplenomegaly present Auscultation: normal bowel sounds Skin: General skin exam: normal color, no jaundice and other (Extensive tattoo
[2023-06-30] MEDS: busPIRone HCL 10 MG TABLET 30 MG PO (08:19)
[2023-06-30] MEDS: PANTOPRAZOLE SODIUM IV 40 MG VIAL IV PUSH (08:19)
[2023-06-30] MEDS: NICOTINE (*PBKC) 21 MG PATCH 1 PATCH TRANSDERM (08:19)
[2023-06-30 08:31] LABS: Glucose Point of Care 135 mg/dl (65-105)
--- NOTE | 2023-06-30 11:54 | WPDANESPN ---
Anes - Prog Note Post-Op Date/Time: 06/30/23 11:54 Cardiovascular status: normal Respiratory status: normal Airway patency: baseline Mental status: baseline Post-Op hydration status: normal Vital Signs: Last Vital Signs Temp 36.4 C 06/30/23 05:09 Pulse 76 06/30/23 05:09 Resp 14 06/30/23 05:09 BP 122/76 06/30/23 05:09 Pulse Ox 97 06/30/23 05:09 O2 Del Method Room Air 06/30/23 08:28 Pain Score (VAS): 12/24 I/O: Intake & Output 06/29/23 06/30/23 06/30/23 23:59 07:59 15:59 Intake Total 1720 240 Balance 1720 240 Laboratory Tests 06/30/23 05:45 06/30/23 05:45 06/29/23 06/29/23 06/29/23 12:46 13:49 14:29 WBC RBC Hgb Hct MCV MCH MCHC RDW Plt Count MPV Immature Gran % (Auto) Neut % (Auto) Lymph % (Auto) [place] % (Auto) Eos % (Auto) Baso % (Auto) Lymph # (Auto) [place] # (Auto) Eos # (Auto) Baso # (Auto) Abs Immat Gran (auto) Absolute Neuts (auto) Absolute Nucleated RBC Nucleated RBC % % Immature Plt Fraction Sodium Potassium Chloride Carbon Dioxide Anion Gap BUN Creatinine Estim Creat Clear Calc Estimated GFR Glucose POC Capillary Glucose 192 H 207 H 199 H Calcium Total Bilirubin AST ALT Alkaline Phosphatase Total Protein Albumin 06/29/23 06/29/23 06/29/23 17:00 17:55 20:18 WBC RBC Hgb Hct MCV MCH MCHC RDW Plt Count MPV Immature Gran % (Auto) Neut % (Auto) Lymph % (Auto) [place] % (Auto) Eos % (Auto) Baso % (Auto) Lymph # (Auto) [place] # (Auto) Eos # (Auto) Baso # (Auto) Abs Immat Gran (auto) Absolute Neuts (auto) Absolute Nucleated RBC Nucleated RBC % % Immature Plt Fraction Sodium 136 L Potassium 3.4 Chloride 107 Carbon Dioxide 26 Anion Gap 3 L BUN 10 Creatinine 0.60 L Estim Creat Clear Calc 106 Estimated GFR > 60 Glucose 305 H POC Capillary Glucose 331 H 360 H Calcium 8.1 L Total Bilirubin AST ALT Alkaline Phosphatase Total Protein Albumin 06/30/23 06/30/23 05:45 08:23 WBC 5.5 RBC 3.11 L Hgb 9.7 L Hct 28.2 L MCV 90.7 MCH 31.2 MCHC 34.4 RDW 11.9 Plt Count 135 L MPV 10.2 Immature Gran % (Auto) 0.4 Neut % (Auto) 46.9 Lymph % (Auto) 34.9 [place] % (Auto) 10.0 H Eos % (Auto) 7.1 H Baso % (Auto) 0.7 Lymph # (Auto) 1.92 [place] # (Auto) 0.6 Eos # (Auto) 0.4 H Baso # (Auto) 0.0 Abs Immat Gran (auto) 0.02 Absolute Neuts (auto) 2.6 Absolute Nucleated RBC 0.0 Nucleated RBC % 0.0 % Immature Plt Fraction 5.1 Sodium 138 Potassium 3.5 Chloride 107 Carbon Dioxide 29 Anion Gap 2 L BUN 10 Creatinine 0.60 L Estim Creat Clear Calc 106 Estimated GFR > 60 Glucose 139 H POC Capillary Glucose 135 H Calcium 8.6 Total Bilirubin 0.4 AST 67 H ALT 54 H Alkaline Phosphatase 91 Total Protein 6.0 L Albumin 3.0 L Post-procedural complaints: none Patient Feedback: Patient satisfied with anesthetic care.
[2023-06-30 12:30] LABS: Glucose Point of Care 105 mg/dl (65-105)
[2023-06-30] MEDS: SUCRALFATE 1 GM TABLET PO (12:57)
[2023-06-30] MEDS: LORazepam (*CRX) 0.5 MG TABLET PO (14:33)
--- NOTE | 2023-06-30 15:14 | PM.DS ---
DS: Admitting Diagnosis Discharge Date 06/30/23 Admitting Diagnosis Elevated glucose and abdominal pain DS: Discharge Diagnosis Discharge Diagnosis (1) Diabetic ketoacidosis, type I: Code(s): E10.10 - Type 1 diabetes mellitus with ketoacidosis without coma Status: Acute (2) Type 1 diabetes: Qualifiers: Diabetes mellitus complication status: without complication Qualified Code(s): E10.9 - Type 1 diabetes mellitus without complications Code(s): E10.9 - Type 1 diabetes mellitus without complications Status: Acute (3) Dehydration: Code(s): E86.0 - Dehydration Status: Acute (4) Vulvovaginitis: Code(s): N76.0 - Acute vaginitis Status: Acute (5) Elevated LFTs: Code(s): R79.89 - Other specified abnormal findings of blood chemistry Status: Acute (6) Gastroparesis: Code(s): K31.84 - Gastroparesis Status: Acute (7) Tobacco abuse: Code(s): Z72.0 - Tobacco use Status: Chronic (8) Substance abuse: Code(s): F19.10 - Other psychoactive substance abuse, uncomplicated Status: Chronic DS: Summary Hospital Course Reason for hospitalization: 38-year-old female with type 1 diabetes, GERD and peptic ulcers presenting with hyperglycemia and abdominal pain and currently being treated for DKA after being discharged the day before for recurrence of the same. Please see H&P for details. Hospital Course: Patient returned to emergency room after being discharged the day before for hyperglycemia and abdominal pain and found to have DKA again.? [place] related to noncompliance medical treatment.? A1c was 12.0.? Patient was treated with IV fluids and insulin.? Symptoms resolved.? Still with mild nausea but tolerating oral intake.? Was not on basal insulin so Lantus added until we could get her insulin pump re-connected which was done prior to discharge.?Patient was dehydrated and started on IV fluid resuscitation with normal saline.? She was voiding normally and tolerating oral intake.? Patient had complaints of vulvovaginitis.? She was given 1 dose of diflucan with improvement. Patient was having epigastric pain.? GI was consulted.? AST and ALT mildly elevated.? Hepatitis panel was negative.? [place] screen was negative.? CT the abdomen and pelvis showed no acute findings.? EGD was essentially normal with the exception that there was a small amount of retained food seen in the fundus consistent with gastric retention. Gastric emptying scan showed delayed gastric emptying. No Reglan because it interacts with Seroquel. Patient smokes marijuana daily. She was instructed to stop smoking marijuana and not to snack between meals. She overall did well. She still has abdominal pain but this is improved and she is able to tolerate oral intake. Emphasized the importance of good glycemic control. She is she overall did well and was able to be discharged on 06/30/2023. Status at Discharge Cognitive/behavioral status at discharge: stable Time Spent with Patient Time attestation: Total time spent providing and/or coordinating discharge services: 35 minutes Time spent: Greater than 30 minutes Exam Narrative: AF 97.6 122/76 14 97% ra General: No acute distress sitting up in bed eating dinner HEENT: Atraumatic, normocephalic, mucous membranes moist CV: Regular rate and rhythm, S1, S2 Lungs: Clear to auscultation bilaterally Abdomen: Soft, nondistended, mild epigastric pain. No guarding. +BS Extremities: No pedal edema. 2+ DP pulses bilateral Skin: No rashes noted, no lesions or wounds seen Psych: Euthymic, normal affect DS: Data Data Completed and Pending Completed studies during hospitalization: Pending at discharge 06/29/23 13:31 Surgical [PTH] Routine Labs on day of discharge: Labs from last 24 hours 06/30/23 06/30/23 06/30/23 12:25 08:23 05:45 WBC 5.5 RBC 3.11 L Hgb 9.7 L Hct 28.2 L MC
[2023-06-30 20:17] LABS: Folic Acid 10.3 ng/mL (2.76->20)
== END 2023-06-30 15:45 | disposition home or self-care (01) ==
LOC: ANHED 17:01 → ANH3MED 06-28 02:44
PROVIDERS: Internal Medicine; Internal Medicine Gastroenterology; Physician Assistant; Admitting Provider Chiropractor; Emergency Provider Emergency Medicine; PCP Family Medicine; Visit Provider Internal Medicine
PROC: 0DJ08ZZ Inspection of Upper Intestinal Tract, Via Natural or Artificial Opening Endoscopic (ICD-10-PCS; CPT 43235; principal; 2023-06-29 14:15)
DX: E10.43 Type 1 diabetes mellitus with diabetic autonomic (poly)neuropathy (principal); K31.89 Other diseases of stomach and duodenum; E86.0 Dehydration; E10.10 Type 1 diabetes mellitus with ketoacidosis without coma; E10.65 Type 1 diabetes mellitus with hyperglycemia; R10.13 Epigastric pain; K21.9 Gastro-esophageal reflux disease without esophagitis; E10.51 Type 1 diabetes mellitus with diabetic peripheral angiopathy without gangrene; E10.42 Type 1 diabetes mellitus with diabetic polyneuropathy; E10.319 Type 1 diabetes mellitus with unspecified diabetic retinopathy without macular edema; K29.70 Gastritis, unspecified, without bleeding; N76.0 Acute vaginitis; R79.89 Other specified abnormal findings of blood chemistry; Z96.41 Presence of insulin pump (external) (internal); K58.9 Irritable bowel syndrome, unspecified; F41.9 Anxiety disorder, unspecified; M79.7 Fibromyalgia; D64.9 Anemia, unspecified; M81.0 Age-related osteoporosis without current pathological fracture; F32.A Depression, unspecified; F42.9 Obsessive-compulsive disorder, unspecified; F10.90 Alcohol use, unspecified, uncomplicated; F17.210 Nicotine dependence, cigarettes, uncomplicated; F12.10 Cannabis abuse, uncomplicated; Z79.4 Long term (current) use of insulin; Z79.899 Other long term (current) drug therapy; Z87.11 Personal history of peptic ulcer disease; Z82.49 Family history of ischemic heart disease and other diseases of the circulatory system
CPT/HCPCS: 43235; 36415; 78264; 80048; 80053; 80074; 81003; 82010; 82607; 82746; 82948; 83735; 84100; 85025; 85027; 85055; 87081; 88305; 96361; 96365; 96374; 96375; 96376; 99285; A9270; A9541; C9113; G0378; G0379; J1815; J2270; J2704; J3480; J7030; J7120

== ENCOUNTER 2023-11-23 07:49 | Outpatient (CLI) | payer OTHER, SELFPAY ==
--- NOTE | ~2023-11-23 | XR_ITS ---
EXAMINATION: XR hip LT 2V w AP pelvis DATE: 11/23/2023 08:12 INDICATION: Left hip pain TECHNIQUE: AP view of the pelvis and two views of left hip were obtained. COMPARISON: 02/08/2023 FINDINGS: Bone alignment is normal. There is no fracture. There is mild osteoarthritis of the hips. IMPRESSION: 1. Mild osteoarthritis of the hips. Reviewed, dictated and finalized at location B. [employer]
== END 2023-11-23 07:50 | disposition home or self-care (01) ==
PROVIDERS: PCP Family Medicine; Visit Provider Nurse Practitioner Family
DX: M16.0 Bilateral primary osteoarthritis of hip (principal)
CPT/HCPCS: 73502

== ENCOUNTER 2023-12-01 12:46 | Outpatient (CLI) | payer OTHER, SELFPAY ==
--- NOTE | 2023-12-02 10:11 | WPDPFTINT ---
PFT Procedure Performed PFT Procedure Performed Plethysmography (Lung Vol) Diffusing Cap (DLCO) Flow Vol Loop Spirometry w/o Bronchodil PFT Interpretation Lung volumes were measured with the body plethysmography method. Lung volumes are unremarkable. Spirometry showed normal expiratory flow rates and a normal FEV1 to FVC ratio 76%. No post bronchodilator study was conducted. Lung diffusion capacity is moderately reduced at 53% predicted. The flow-volume loop is unremarkable. In comparison to previous study in August of 2020 there has been no significant change in forced vital capacity, FEV1, total lung capacity, or lung diffusion capacity. Impression: Spirometry, lung volumes within normal range. Moderate reduction in lung diffusion capacity. Unchanged since 2019.
== END 2023-12-01 12:47 | disposition home or self-care (01) ==
LOC: ANHPFT 12:47
PROVIDERS: PCP Family Medicine; Visit Provider Nurse Practitioner Family
DX: J43.9 Emphysema, unspecified (principal)
CPT/HCPCS: 94375; 94726; 94729

== ENCOUNTER 2024-03-10 08:15 | Observation (INO) | payer OTHER, SELFPAY ==
[2024-03-10] VITALS (41 sets, daily range): BP systolic 104–148; BP diastolic 59–97; PULSE 83–105; RESP 13–34; TEMP 36–36.7; O2SAT 97–100; BMI 25.7
--- NOTE | ~2024-03-10 | XR_ITS ---
EXAMINATION: XR chest 1V portable DATE: 03/10/2024 08:32 INDICATION: Weakness. Nausea. TECHNIQUE: A single frontal view of the chest was obtained. COMPARISON: Chest 2 views 06/23/2023 FINDINGS: There is no pneumonia, pleural effusion, or pneumothorax. The heart size is normal. IMPRESSION: 1. No acute cardiopulmonary disease. Reviewed, dictated and finalized at location A.
[2024-03-10 08:28] LABS: Glucose Point of Care > 500 mg/dl (65-105)
[2024-03-10 08:31] LABS: Basophils Absolute Auto 0.1 K/mm3 (0.0-0.1); Basophils Percent Auto 0.7 % (0.2-1.2); Eosinophils Absolute Auto 0.1 K/mm3 (0-0.3); Hematocrit 37.3 % (37.0-47.0); Hemoglobin 12.9 g/dL (12.0-15.0); Immature Granulocyte Absolute 0.04 K/mm3 (0.00-0.031); Immature Granulocyte Percent A 0.4 % (0-0.5); Lymphocytes Absolute Auto 0.88 K/mm3 (0.9-3.2); Lymphocytes Percent Auto 8.9 % (18.3-44.2); Mean Corpuscular HGB Conc 34.6 g/dl (32-36); Mean Corpuscular Hemoglobin 30.6 pg (26-34); Mean Corpuscular Volume 88.6 fl (80-100); Mean Platelet Volume 10.7 fl (7.4-10.4); Monocytes Absolute Auto 0.3 K/mm3 (0.1-0.6); Monocytes Percent Auto 2.8 % (2.6-8.5); Neutrophils Absolute Auto 8.5 K/mm3 (1.3-6.7); Neutrophils Percent Auto 86.2 % (45.5-73.1); Platelet Count Result 167 k/mm3 (150-375); Red Blood Count 4.21 M/mm3 (4.2-5.4); Red Cell Distribution Width 12.3 % (11.5-14.5); White Blood Count 9.9 K/mm3 (4.5-10.0)
[2024-03-10] MEDS: SODIUM CHLORIDE 0.9% IV 1,000 ML 999 ML IV CONT ×4 (08:31→14:29)
[2024-03-10] MEDS: ONDANSETRON INJ 4 MG/2 ML VIAL IV PUSH ×2 (08:32→15:14)
[2024-03-10 08:50] LABS: Alanine Aminotransferase 18 U/L (6-35); Albumin Level 4.4 g/dL (3.5-5.1); Alkaline Phosphatase 127 U/L (38-126); Anion Gap 14 mmol/L (4-12); Aspartate Amino Transferase 22 U/L (14-36); Bilirubin,Total 0.9 mg/dL (0.2-1.3); Blood Urea Nitrogen 29 mg/dL (7-17); Calcium 9.9 mg/dL (8.4-10.2); Carbon Dioxide 19 mmol/L (22-30); Chloride 102 mmol/L (98-107); Estimated CRCL calculation 60 ml/min; Estimated Glomerular Filt Rate 56; Glucose 585 mg/dL (65-110); Magnesium 1.9 mg/dL (1.6-2.3); Potassium 4.7 mmol/L (3.4-5.0); Sodium 135 mmol/L (137-145)
[2024-03-10 09:01] LABS: Beta-Hydroxybutyrate/Acetoacetate 4.16 mmol/L (0.02-0.27)
--- NOTE | 2024-03-10 09:06 | ED.GENADULT ---
HPI - General Adult General Chief complaint: Recheck/Abnormal Lab/Rx Stated complaint: high BG Time Seen by Provider: 03/10/24 08:55 History of Present Illness HPI narrative: Patient is a 39-year-old female who presents emergency department this evening complaining of nausea and vomiting. Patient states symptoms started approximately 3 days ago and she has not been able to keep anything down. Patient admits that she is also a type 1 diabetic and was recently seen at [facility] but left without completion of her treatment. Patient does have an insulin pump, states that it was changed yesterday and is fully functional and full. Patient denies any sick contacts at home or exposure to any COVID or influenza as far as she is aware. She denies any chest pain, shortness of breath, denies any abdominal pain. Patient admits that she has been in DKA in the past. She denies any additional symptoms or concerns at this time. Related Data Home Medications Medication Instructions Recorded Confirmed buspirone 30 mg tablet 30 mg PO BID 08/25/19 11/15/23 insulin lispro 100 unit/mL See Rx Instructions .Route .COMPLEX 06/23/20 11/15/23 subcutaneous solution (Admelog U-100 Insulin lispro) insulin glargine 100 unit/mL See Rx Instructions .Route .COMPLEX 01/03/21 11/15/23 subcutaneous solution (Lantus U-100 Insulin) fluvoxamine 100 mg tablet 150 mg PO BID 05/05/21 11/15/23 lorazepam 0.5 mg tablet 0.5 mg PO TID PRN Anxiety 02/07/23 11/15/23 quetiapine 400 mg tablet (Seroquel) 400 mg PO QHS 02/07/23 11/15/23 estradiol 2 mg tablet 2 mg PO DAILY 07/21/23 11/15/23 Allergies Allergy/AdvReac Type Severity Reaction Status Date / Time adhesive tape Allergy Mild Rash Verified 11/15/23 08:11 Review of Systems Review of Systems: All systems are reviewed and are negative unless stated otherwise in the HPI. PENDING SALE TO [facility] Past Medical History Medical History Achilles tendinitis, left leg Anemia Sees Dr. 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 History of foot surgery x5, L foot due to drop foot s/p diabetic coma History of tonsillectomy History of total hysterectomy Family History Family History Mother Family history of chronic obstructive pulmonary disease Atrial tachycardia Emphysema lung MAIC (mycobacterium avium-intracellulare complex) Father Acute myocardial infarction Grandparent Bone cancer Other Cerebrovascular accident Diabetes mellitus Family history of arthritis Family history of coronary artery disease Family history of malignant neoplasm Family history of malignant neoplasm of breast Social History Social History Social History: Surrogate medical decision maker: Frank Mann, . Code status: Full code. Smoking packs per day: 1 Smoking cigarettes per day: 20.0 Years smoked: 25 Smoking pack-years: 25.00 Smoking status: Current every day smoker Second hand tobacco smoke exposure: Yes Additional smoking assessment comments: Assessed for readiness to quit (Jun 2023), patient not donal
[2024-03-10 09:11] LABS: SPREG INTERNAL CONTROL Positive; Serum Qual hCG Negative
[2024-03-10] MEDS: INSULIN HUMAN REGULAR (*BKC) 100 UNITS/ML 10 UNITS IV PUSH (09:13)
[2024-03-10 09:17] LABS: Appearance Urine Cloudy (Clear); Bacteria Urine 1+ /hpf; Bilirubin Urine Negative (Negative); Blood Urine Negative (Negative); Color Urine Yellow (Yellow); Glucose Urine UA 3+ mg/dL (Negative); Ketones Urine 3+ mg/dL (Negative); Leukocyte Esterase Ur Negative LEU/UL (Negative); Nitrate Urine Negative (Negative); Protein Urine Negative (Negative); RBC Urine 0-2 /hpf (0-2); Specific Grav Ur 1.028 (1.001-1.035); Squamous Epithelial Cell Urine Moderate /hpf (Few); WBC Urine 0-5 /hpf (0-3)
[2024-03-10 09:22] LABS: Add Urine Microscopic? YES
[2024-03-10 09:38] LABS: Alveolar/Arterial O2 Gradient 18.7 mmHg; Base Excess ABG -8.9 mEq/l (+/-2.0); Carboxyhemoglobin 2.3 % THb (0-2.0); Fractional Inspired Oxygen 21 %; HCO3 ABG 16.5 mEq/l (22.0-26.0); Methemoglobin ABG 0.3 %THb (0-1.5); Oxygen Saturation ABG 96.2 % (95.0-100.0); Oxyhemoglobin 93.2 % THb (90.0-100.0); PCO2 ABG 34.1 mmHg (35.0-45.0); PO2 ABG 90.2 mmHg (80.0-100.0); Reduced Hemoglobin 4.2 %THb (0-5.0); Total Hemoglobin 12.1 g/dL (12.0-18.0); pH ABG 7.303 (7.350-7.450)
[2024-03-10 09:39] LABS: Device ROOM AIR; Modified Allen's Test Pass; Site Drawn LEFT RADIAL
--- NOTE | 2024-03-10 09:59 | PC.NURSE ---
bedside glucose taken at this time. Pt monitor states 287, RN bedside 400+.
[2024-03-10] MEDS: diphenhydrAMINE HCl INJ 50 MG/ML VIAL 25 MG IV PUSH (10:06)
[2024-03-10] MEDS: METOCLOPRAMIDE HCL INJ 10 MG/2 ML VIAL IV PUSH (10:08)
[2024-03-10 10:56] LABS: Glucose Point of Care 428 mg/dl (65-105)
[2024-03-10 12:49] LABS: Glucose Point of Care 392 mg/dl (65-105)
[2024-03-10 13:20] LABS: Anion Gap 13 mmol/L (4-12); Blood Urea Nitrogen 27 mg/dL (7-17); Calcium 8.9 mg/dL (8.4-10.2); Carbon Dioxide 16 mmol/L (22-30); Chloride 109 mmol/L (98-107); Estimated CRCL calculation 66 ml/min; Estimated Glomerular Filt Rate > 60; Glucose 412 mg/dL (65-110); Potassium 4.2 mmol/L (3.4-5.0); Sodium 138 mmol/L (137-145)
--- NOTE | 2024-03-10 14:59 | PM.IMHP ---
H&P: HPI History of Present Illness Date/Time: 03/10/24 14:59 Chief Complaint: 1. Nausea and vomiting Narrative: Sole Mann is a 39yo F with a mHx significant for IDDM, Anxiety, Peripheral neuropathy, Depression, GERD, She over the last 3-4 days have been experiencing intractable nausea with NBNB emesis; it is aggravated by meals/drinks, alleviated by fasting; associated with malaise, fatigue, anorexia She denies fevers, chills, flank pain, dizziness, cough, chest pain, skin/joint changes. She attests to a sabianism compliance to her insulin regimen; she smokes tobacco, consumes marijuana daily, denies alcohol dependence. She confesses to a sabianism commitment to her insulin regimen. Work-up findings: Unremarkable CBC AB.3; 34; 90; 16; 96 Na 135 K 4.7 Cl 102 HCO3 19 AG 11 BUn 29 Cr 1.1 GFr 56 BG 585 AST 22 ALT 18 ALP 127 T. Bili 1.8 UA: 1+bacteria CXR: 1. No acute cardiopulmonary disease. Sole Mann will be admitted, evaluated and managed for DKA/HHS. Review of Systems Constitutional: Constitutional: Denies difficulty sleeping, Reports fatigue and Reports lethargy Eyes: Eyes: Reports no additional eye complaints ENT: Denies dysphagia, Denies epistaxis, Denies nasal congestion and Denies nasal discharge Cardiovascular: Cardiovascular: Reports no additional cardiovascular complaints, Denies chest pain, Denies diaphoresis, Denies pedal edema and Denies leg edema Respiratory: Respiratory: Reports no additional respiratory complaints, Reports cough and Denies dyspnea Gastrointestinal: Gastrointestinal: Reports diarrhea, Reports nausea and Reports vomiting Musculoskeletal: Musculoskeletal: Reports myalgias, Denies arthralgias and Denies joint swelling Neurologic: Denies abnormal gait, Denies confusion and Denies vertigo Psychiatric: Psychiatric: Reports anxiety, Denies confusion and Denies depression PMFSH Past Medical History Medical History Achilles tendinitis, left leg Anemia Sees Dr. 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 History of foot surgery x5, L foot due to drop foot s/p diabetic coma History of tonsillectomy History of total hysterectomy Family History Family History Mother Family history of chronic obstructive pulmonary disease Atrial tachycardia Emphysema lung MAIC (mycobacterium avium-intracellulare complex) Father Acute myocardial infarction Grandparent Bone cancer Other Cerebrovascular accident Diabetes mellitus Family history of arthritis Family history of coronary artery disease Family history of malignant neoplasm Family history of malignant neoplasm of breast Social History Social History Social History: Surrogate medical decision maker: Frankcheyenne GarciaMackenzie, . Code status: Full code. Smoking packs per day: 0.5 Smoking cigarettes per day: 10.0 Years smoked: 22 Smoking pack-years: 11.00 Smoking status: Current every day smoker Tobacco type: cigarettes Second hand tobacco smoke exposure: Yes Additional smoking assessment comme
[2024-03-10 15:14] LABS: Glucose Point of Care 460 mg/dl (65-105)
--- NOTE | 2024-03-10 15:17 | PC.NURSE ---
patient transferred to floor with IVF x2 infusing
[2024-03-10 15:50] LABS: Glucose Point of Care 484 mg/dl (65-105)
[2024-03-10 16:20] LABS: Anion Gap 18 mmol/L (4-12); Blood Urea Nitrogen 26 mg/dL (7-17); Calcium 8.8 mg/dL (8.4-10.2); Carbon Dioxide 11 mmol/L (22-30); Chloride 110 mmol/L (98-107); Estimated CRCL calculation 60 ml/min; Estimated Glomerular Filt Rate 56; Glucose 452 mg/dL (65-110); Magnesium 1.6 mg/dL (1.6-2.3); Phosphorus 4.1 mg/dL (2.5-4.5); Potassium 4.6 mmol/L (3.4-5.0); Sodium 139 mmol/L (137-145)
[2024-03-10 16:25] LABS: Glucose Point of Care 481 mg/dl (65-105)
--- NOTE | 2024-03-10 16:44 | ADMGEN ---
This patient, Sole Mann, was admitted to [facility] Surg Room 319-01. Patient/family oriented to hospital policies and general routines including ID bracelet, bed and alarms, visiting hours, pain management, procedures, bathroom and other care routines, personal items, smoking policy, room service/diet, and visiting hours. Information on how to activate the Rapid Response Team has been discussed. Patient/Family are encouraged to report perceived risks to care and to ask questions if they do not understand what they are told or what they should do.
[2024-03-10] MEDS: INSULIN HUMAN REGULAR (*BKC) 100 UNITS in SODIUM CHLORIDE 0.9% IV 99 ML 7.5 UNITS IV CONT (17:22)
[2024-03-10] MEDS: SODIUM CHLORIDE 0.9% IV 1,000 ML 150 ML IV CONT (17:26)
[2024-03-10 17:34] LABS: Anion Gap 17 mmol/L (4-12); Blood Urea Nitrogen 26 mg/dL (7-17); Calcium 8.5 mg/dL (8.4-10.2); Carbon Dioxide 9 mmol/L (22-30); Chloride 111 mmol/L (98-107); Estimated CRCL calculation 66 ml/min; Estimated Glomerular Filt Rate > 60; Glucose 453 mg/dL (65-110); Potassium 4.7 mmol/L (3.4-5.0); Sodium 137 mmol/L (137-145)
[2024-03-10 17:46] LABS: Glucose Point of Care 474 mg/dl (65-105)
[2024-03-10] MEDS: HYDROmorphone HCL INJ (*CRX) 1 MG/ML SYR 0.5 MG IV PUSH (17:53)
[2024-03-10] MEDS: MAGNESIUM SULF 2 GM/WATER 50ML 2 GM/50 ML BAG IVPB (17:55)
[2024-03-10] MEDS: PROCHLORPERAZINE EDISYLATE 10 MG/2 ML VIAL 5 MG IV PUSH (18:26)
[2024-03-10 18:34] LABS: Glucose Point of Care 445 mg/dl (65-105)
--- NOTE | 2024-03-10 19:02 | PHAR ---
Rx [id number] IDENTIFIED TO CONTAIN: Fluvoxamine Maleate Imprint 12 21 Strength 100 mg Color Beige Size 15.00 mm Shape Oval SI AND 1/2 TABLET TWICE A DAY
[2024-03-10 19:26] LABS: Hemoglobin A1C 9.2 % (<5.7)
[2024-03-10 19:28] LABS: Anion Gap 16 mmol/L (4-12); Blood Urea Nitrogen 26 mg/dL (7-17); Calcium 8.6 mg/dL (8.4-10.2); Carbon Dioxide 12 mmol/L (22-30); Chloride 111 mmol/L (98-107); Estimated CRCL calculation 60 ml/min; Estimated Glomerular Filt Rate 56; Glucose 389 mg/dL (65-110); Magnesium 2.3 mg/dL (1.6-2.3); Phosphorus 3.1 mg/dL (2.5-4.5); Potassium 3.9 mmol/L (3.4-5.0); Sodium 139 mmol/L (137-145)
[2024-03-10 19:36] LABS: Glucose Point of Care 399 mg/dl (65-105)
[2024-03-10 20:49] LABS: Glucose Point of Care 317 mg/dl (65-105)
[2024-03-10 21:22] LABS: Amphetamine Screen Urine Negative (Negative); Barbiturate Screen Urine Negative (Negative); Benzodiazepines Screen Urine Negative (Negative); Cannabinoid Screen Urine Positive (Negative); Cocaine Screen Urine Negative (Negative); Methadone Screen Urine Negative (Negative); Opiate Screen Urine Negative (Negative); Phencyclidine Screen Urine Negative (Negative)
[2024-03-10 21:38] LABS: Glucose Point of Care 292 mg/dl (65-105)
[2024-03-10 22:16] LABS: MRSA (PCR) NOT DETECTED (NOT DETECTE)
[2024-03-10 22:32] LABS: Glucose Point of Care 232 mg/dl (65-105)
[2024-03-10] MEDS: DEXTROSE 5%/0.45% SOD CHL 1,000 ML 150 ML IV CONT (22:35)
[2024-03-10] MEDS: QUEtiapine FUMARATE 100 MG TABLET 400 MG PO (23:35)
[2024-03-10] MEDS: busPIRone HCL 10 MG TABLET 30 MG PO (23:36)
[2024-03-10] MEDS: LORazepam (*CRX) 0.5 MG TABLET PO (23:36)
[2024-03-10 23:40] LABS: Glucose Point of Care 217 mg/dl (65-105)
[2024-03-10] MEDS: PROPRANOLOL HCL 10 MG TABLET PO (23:40)
[2024-03-10] MEDS: KCL 20 MEQ/D5/0.45% SOD CHL 1,000 ML 150 ML IV CONT (23:41)
[2024-03-11] VITALS (14 sets, daily range): BP systolic 87–107; BP diastolic 57–81; PULSE 76–92; RESP 14–23; TEMP 36.4–37; O2SAT 97–100
[2024-03-11 00:43] LABS: Glucose Point of Care 224 mg/dl (65-105)
[2024-03-11 01:01] LABS: Anion Gap 6 mmol/L (4-12); Blood Urea Nitrogen 26 mg/dL (7-17); Calcium 8.2 mg/dL (8.4-10.2); Carbon Dioxide 18 mmol/L (22-30); Chloride 113 mmol/L (98-107); Estimated CRCL calculation 66 ml/min; Estimated Glomerular Filt Rate > 60; Glucose 205 mg/dL (65-110); Magnesium 2.4 mg/dL (1.6-2.3); Potassium 3.6 mmol/L (3.4-5.0); Sodium 137 mmol/L (137-145)
[2024-03-11] MEDS: INSULIN HUMAN REGULAR (*BKC) 100 UNITS in SODIUM CHLORIDE 0.9% IV 99 ML 12.5 UNITS IV CONT (01:25)
[2024-03-11 01:30] LABS: Glucose Point of Care 219 mg/dl (65-105)
[2024-03-11 02:35] LABS: Glucose Point of Care 211 mg/dl (65-105)
[2024-03-11 03:34] LABS: Glucose Point of Care 208 mg/dl (65-105)
[2024-03-11 04:37] LABS: Glucose Point of Care 188 mg/dl (65-105)
[2024-03-11 04:50] LABS: Anion Gap 2 mmol/L (4-12); Blood Urea Nitrogen 24 mg/dL (7-17); Carbon Dioxide 21 mmol/L (22-30); Chloride 115 mmol/L (98-107); Estimated CRCL calculation 66 ml/min; Estimated Glomerular Filt Rate > 60; Glucose 180 mg/dL (65-110); Potassium 3.7 mmol/L (3.4-5.0); Sodium 138 mmol/L (137-145)
[2024-03-11 05:32] LABS: Glucose Point of Care 169 mg/dl (65-105)
[2024-03-11] MEDS: KCL 20 MEQ/D5/0.45% SOD CHL 1,000 ML 150 ML IV CONT (06:21)
[2024-03-11 06:26] LABS: Glucose Point of Care 157 mg/dl (65-105)
[2024-03-11] MEDS: GABAPENTIN 300 MG CAPSULE 600 MG PO ×3 (06:26→21:02)
[2024-03-11 07:27] LABS: Glucose Point of Care 133 mg/dl (65-105)
--- NOTE | 2024-03-11 08:26 | WPDCNINT ---
Assessment and Plan Assessment and plan (1) Nausea & vomiting: Code(s): R11.2 - Nausea with vomiting, unspecified Status: Acute Assessment and Plan: Resolved at this time (2) DKA (diabetic ketoacidosis): Code(s): E11.10 - Type 2 diabetes mellitus with ketoacidosis without coma Status: Acute Assessment and Plan: Patient presented with DKA with positive anion gap and ketones Patient was given IVF bolus and started on infusion Patient was started Insulin infusion and Q1H glucose monitoring Serial labs were performed Anion gap has closed and symptoms improved. I will transition patient back to her insulin pump under monitoring in the hospital and discontinue IV insulin and fluids. Patient's blood sugars will be monitored by nursing staff Start diabetic diet medical educator and dietitian consult pending Will transition to SC insulin once AG is closed (3) Acute dehydration: Code(s): E86.0 - Dehydration Status: Acute Assessment and Plan: Improved with IV fluids (4) Gastroparesis: Code(s): K31.84 - Gastroparesis Status: Acute Assessment and Plan: Check EKG Start Reglan Plan DVT prophylaxis -SCDs. I anticipate patient will ambulate today Nutrition -start diabetic diet Code Status - Full Code Family updated at bedside Traffic Operator Consult Note Consult date: 03/11/24 Reason for consult: DKA HPI: Sole Mann is a 39 year old female with past medical history of diabetes, peripheral neuropathy, depression, GERD who is on insulin pump continues glucose monitoring presented to ER yesterday with chief complaint of nausea vomiting started 3-4 days ago. She claims that she had an insulin pump on but maybe it was malpositioned hence she was not receiving the insulin at the usual dose and blood sugars had been running high for last 3-4 days. She has been on pump for last 5 months and has been working adequately. She went to [facility] ER yesterday when her blood sugars were running in 500 range but due to delay in being seen she left and came to [place] ER. Denied any hematemesis or hematochezia. She states she was unable to keep any food or liquids down. Patient denies fever, chest pain, shortness of breath, cough, abdominal pain, diarrhea, headache or constipation. No dysuria hematuria. Workup in the ER showed Unremarkable CBC AB.3; 34; 90; 16; 96 Na 135 K 4.7 Cl 102 HCO3 19 AG 11 BUn 29 Cr 1.1 GFr 56 BG 585 ?AST 22 ALT 18 ALP 127 T. Bili 1.8 UA: 1+bacteria CXR: 1. No acute cardiopulmonary disease. Patient was diagnosed with DKA and admitted to ICU and started IV insulin infusion. This morning patient states she is feeling much better and her symptoms have resolved. She denies any nausea vomiting at this time and feels that she would like to eat regular food. Review of Systems Review of Systems: All systems reviewed & are unremarkable except as noted in HPI and below (HPI) [facility] Past Medical History Medical History Achilles tendinitis, left leg Anemia Sees Dr. 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 History of foot surgery x5, L
[2024-03-11 08:29] LABS: Glucose Point of Care 105 mg/dl (65-105)
--- NOTE | 2024-03-11 08:30 | ECG_ITS ---
SEE SCANNED COPY FOR CONFIRMED REPORT MTDD
[2024-03-11] MEDS: PROPRANOLOL HCL 10 MG TABLET PO ×2 (08:34→21:02)
[2024-03-11] MEDS: FAMOTIDINE 20 MG TABLET PO ×2 (08:35→21:02)
[2024-03-11] MEDS: LORazepam (*CRX) 0.5 MG TABLET PO ×2 (08:35→21:06)
[2024-03-11] MEDS: busPIRone HCL 10 MG TABLET 30 MG PO ×2 (08:36→17:44)
[2024-03-11] MEDS: NICOTINE (*PBKC) 14 MG PATCH 1 PATCH TRANSDERM (08:58)
[2024-03-11 09:28] LABS: Glucose Point of Care 97 mg/dl (65-105)
[2024-03-11 11:39] LABS: Glucose Point of Care 69 mg/dl (65-105)
[2024-03-11] MEDS: METOCLOPRAMIDE HCL 5 MG TABLET PO ×3 (11:40→21:03)
[2024-03-11] MEDS: ACETAMINOPHEN 325 MG TABLET 650 MG PO (11:44)
[2024-03-11 12:26] LABS: Glucose Point of Care 100 mg/dl (65-105)
--- NOTE | 2024-03-11 14:35 | PC.NURSE ---
This patient, Sole Mann, was transferred to [facility] on 03/11/24 at 1435. Personal belongings sent with patient. Report given to Lucia. Appropriate documentation sent with patient.
[2024-03-11 16:37] LABS: Glucose Point of Care 135 mg/dl (65-105)
--- NOTE | 2024-03-11 17:23 | PM.IMPN ---
Progress Note: A&P Assessment and Plan (1) Nausea & vomiting: Code(s): R11.2 - Nausea with vomiting, unspecified Status: Acute (2) Diarrhea: Code(s): R19.7 - Diarrhea, unspecified Status: Acute (3) Acute dehydration: Code(s): E86.0 - Dehydration Status: Acute (4) DKA (diabetic ketoacidosis): Code(s): E11.10 - Type 2 diabetes mellitus with ketoacidosis without coma Status: Acute (5) Gastroparesis: Code(s): K31.84 - Gastroparesis Status: Acute (6) Abdominal pain: Qualifiers: Abdominal location: generalized Qualified Code(s): R10.84 - Generalized abdominal pain Code(s): R10.9 - Unspecified abdominal pain Status: Acute (7) Dehydration: Code(s): E86.0 - Dehydration Status: Acute (8) Gastritis: Code(s): K29.70 - Gastritis, unspecified, without bleeding Status: Acute (9) COPD (chronic obstructive pulmonary disease): Code(s): J44.9 - Chronic obstructive pulmonary disease, unspecified Status: Acute (10) Type 1 diabetes: Qualifiers: Diabetes mellitus complication status: without complication Qualified Code(s): E10.9 - Type 1 diabetes mellitus without complications Code(s): E10.9 - Type 1 diabetes mellitus without complications Status: Acute (11) Tobacco dependence: Code(s): F17.200 - Nicotine dependence, unspecified, uncomplicated Status: Acute (12) 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: Code(s): E10.51 - Type 1 diabetes mellitus with diabetic peripheral angiopathy without gangrene; I70.209 - Unspecified atherosclerosis of [place] arteries of extremities, unspecified extremity Status: Chronic (13) Diabetic retinopathy of both eyes associated with type 1 diabetes mellitus: Code(s): E10.319 - Type 1 diabetes mellitus with unspecified diabetic retinopathy without macular edema Status: Chronic (14) Peripheral neuropathy: Qualifiers: Peripheral neuropathy type: polyneuropathy, unspecified Qualified Code(s): G62.9 - Polyneuropathy, unspecified Code(s): G62.9 - Polyneuropathy, unspecified Status: Chronic (15) Fibromyalgia: Code(s): M79.7 - Fibromyalgia Status: Chronic (16) IBS (irritable bowel syndrome): Code(s): K58.9 - Irritable bowel syndrome without diarrhea Status: Chronic (17) Iron deficiency anemia, unspecified: Code(s): D50.9 - Iron deficiency anemia, unspecified Status: Chronic (18) Lumbar spondylosis: Code(s): M47.816 - Spondylosis without myelopathy or radiculopathy, lumbar region Status: Chronic (19) Depression with anxiety: Code(s): F41.8 - Other specified anxiety disorders Status: Chronic (20) OCD (obsessive compulsive disorder): Qualifiers: Obsessive-compulsive disorder type: unspecified Qualified Code(s): F42.9 - Obsessive-compulsive disorder, unspecified Code(s): F42.9 - Obsessive-compulsive disorder, unspecified Status: Chronic (21) Gastroesophageal reflux disease: Code(s): K21.9 - Gastro-esophageal reflux disease without esophagitis Status: Chronic (22) Vitamin B12 deficiency: Code(s): E53.8 - Deficiency of other specified B group vitamins Status: Chronic (23) Vitamin D deficiency: Code(s): E55.9 - Vitamin D deficiency, unspecified Status: Chronic (24) Substance abuse: Code(s): F19.10 - Other psychoactive substance abuse, uncomplicated Status: Chronic Plan Patient admitted to ICU with DKA which was treated aggressively as per protocol and resolved Patient has been downgraded to med surge by operation shift supervisor Patient is off IV insulin drip Blood sugar levels are under control and the anion gap has closed Patient restarted on insulin pump at her home dosage Strictly advised patient to monitor her diet and take insulin on a regu
[2024-03-11] MEDS: traMADol HCL (*CRX) 50 MG TABLET PO (18:07)
[2024-03-11] MEDS: QUEtiapine FUMARATE 100 MG TABLET 400 MG PO (21:02)
[2024-03-12] MEDS: GABAPENTIN 300 MG CAPSULE 600 MG PO ×2 (05:27→14:14)
[2024-03-12] MEDS: METOCLOPRAMIDE HCL 5 MG TABLET PO ×2 (05:30→12:13)
[2024-03-12] MEDS: traMADol HCL (*CRX) 50 MG TABLET PO (05:32)
[2024-03-12 06:00] VITALS: BP 125/85; PULSE 75; RESP 20; TEMP 36.1; O2SAT 100
[2024-03-12 06:07] LABS: Basophils Percent Auto 0.4 % (0.2-1.2); Eosinophils Absolute Auto 0.2 K/mm3 (0-0.3); Eosinophils Percent Auto 2.4 % (0-4.4); Hematocrit 32.9 % (37.0-47.0); Hemoglobin 10.9 g/dL (12.0-15.0); Immature Granulocyte Absolute 0.03 K/mm3 (0.00-0.031); Immature Granulocyte Percent A 0.3 % (0-0.5); Lymphocytes Absolute Auto 2.69 K/mm3 (0.9-3.2); Mean Corpuscular HGB Conc 33.1 g/dl (32-36); Mean Corpuscular Hemoglobin 30.3 pg (26-34); Mean Corpuscular Volume 91.4 fl (80-100); Mean Platelet Volume 10.4 fl (7.4-10.4); Monocytes Absolute Auto 0.6 K/mm3 (0.1-0.6); Monocytes Percent Auto 6.2 % (2.6-8.5); Neutrophils Percent Auto 62.7 % (45.5-73.1); Platelet Count Result 152 k/mm3 (150-375); Red Cell Distribution Width 13.2 % (11.5-14.5); White Blood Count 9.6 K/mm3 (4.5-10.0)
[2024-03-12 06:29] LABS: Anion Gap 2 mmol/L (4-12); Blood Urea Nitrogen 15 mg/dL (7-17); Calcium 8.9 mg/dL (8.4-10.2); Carbon Dioxide 23 mmol/L (22-30); Chloride 115 mmol/L (98-107); Estimated CRCL calculation 72 ml/min; Estimated Glomerular Filt Rate > 60; Glucose 149 mg/dL (65-110); Magnesium 2.1 mg/dL (1.6-2.3); Phosphorus 2.5 mg/dL (2.5-4.5); Potassium 3.8 mmol/L (3.4-5.0); Sodium 140 mmol/L (137-145)
[2024-03-12 08:29] LABS: Glucose Point of Care 157 mg/dl (65-105)
[2024-03-12 10:04] VITALS: PULSE 76
[2024-03-12] MEDS: PROPRANOLOL HCL 10 MG TABLET PO (10:04)
[2024-03-12] MEDS: FAMOTIDINE 20 MG TABLET PO (10:04)
[2024-03-12] MEDS: busPIRone HCL 10 MG TABLET 30 MG PO (10:06)
[2024-03-12] MEDS: NICOTINE (*PBKC) 14 MG PATCH 1 PATCH TRANSDERM (10:07)
[2024-03-12 12:11] LABS: Glucose Point of Care 149 mg/dl (65-105)
[2024-03-12 13:53] VITALS: BP 121/82; PULSE 72; RESP 18; TEMP 36.3; O2SAT 100
--- NOTE | 2024-03-12 14:20 | PM.DS ---
DS: Admitting Diagnosis Discharge Date 03/12/2024: Admitting Diagnosis (1) Acute dehydration: ?Code(s): E86.0 - Dehydration ?Status:?Acute (2) Nausea & vomiting: ?Code(s): R11.2 - Nausea with vomiting, unspecified ?Status:?Acute (3) Diarrhea: ?Code(s): R19.7 - Diarrhea, unspecified ?Status:?Acute (4) DKA (diabetic ketoacidosis): ?Code(s): E11.10 - Type 2 diabetes mellitus with ketoacidosis without coma ?Status:?Acute DS: Discharge Diagnosis Discharge Diagnosis (1) Nausea & vomiting: Code(s): R11.2 - Nausea with vomiting, unspecified Status: Acute (2) Diarrhea: Code(s): R19.7 - Diarrhea, unspecified Status: Acute (3) Acute dehydration: Code(s): E86.0 - Dehydration Status: Acute (4) DKA (diabetic ketoacidosis): Code(s): E11.10 - Type 2 diabetes mellitus with ketoacidosis without coma Status: Acute (5) Gastroparesis: Code(s): K31.84 - Gastroparesis Status: Acute (6) Dehydration: Code(s): E86.0 - Dehydration Status: Acute (7) Tobacco dependence: Code(s): F17.200 - Nicotine dependence, unspecified, uncomplicated Status: Acute (8) 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: Code(s): E10.51 - Type 1 diabetes mellitus with diabetic peripheral angiopathy without gangrene; I70.209 - Unspecified atherosclerosis of [place] arteries of extremities, unspecified extremity Status: Chronic (9) Diabetic retinopathy of both eyes associated with type 1 diabetes mellitus: Code(s): E10.319 - Type 1 diabetes mellitus with unspecified diabetic retinopathy without macular edema Status: Chronic (10) Peripheral neuropathy: Qualifiers: Peripheral neuropathy type: polyneuropathy, unspecified Qualified Code(s): G62.9 - Polyneuropathy, unspecified Code(s): G62.9 - Polyneuropathy, unspecified Status: Chronic (11) Fibromyalgia: Code(s): M79.7 - Fibromyalgia Status: Chronic (12) IBS (irritable bowel syndrome): Code(s): K58.9 - Irritable bowel syndrome without diarrhea Status: Chronic (13) Iron deficiency anemia, unspecified: Code(s): D50.9 - Iron deficiency anemia, unspecified Status: Chronic (14) Lumbar spondylosis: Code(s): M47.816 - Spondylosis without myelopathy or radiculopathy, lumbar region Status: Chronic (15) OCD (obsessive compulsive disorder): Qualifiers: Obsessive-compulsive disorder type: unspecified Qualified Code(s): F42.9 - Obsessive-compulsive disorder, unspecified Code(s): F42.9 - Obsessive-compulsive disorder, unspecified Status: Chronic (16) Hand paresthesia: Code(s): R20.2 - Paresthesia of skin Status: Chronic (17) Gastroesophageal reflux disease: Code(s): K21.9 - Gastro-esophageal reflux disease without esophagitis Status: Chronic (18) Vitamin B12 deficiency: Code(s): E53.8 - Deficiency of other specified B group vitamins Status: Chronic (19) Vitamin D deficiency: Code(s): E55.9 - Vitamin D deficiency, unspecified Status: Chronic (20) Tobacco abuse: Code(s): Z72.0 - Tobacco use Status: Chronic (21) Substance abuse: Code(s): F19.10 - Other psychoactive substance abuse, uncomplicated Status: Chronic DS: Summary Hospital Course Reason for hospitalization: Patient admitted with the nausea and vomiting and elevated blood sugars Hospital Course: H&P: HPI History of Present Illness Date/Time: 03/10/24? 14:59 Chief Complaint: 1. Nausea and vomiting Narrative: Sole Mann is a 39yo F with a mHx significant for IDDM, Anxiety, Peripheral neuropathy, Depression, GERD, She over the last 3-4 days have been experiencing intractable nausea with NBNB emesis; it is aggravated by meals/drinks, alleviated by fasting; associated with malaise, fatigue, anorexia She den
--- NOTE | 2024-03-16 11:22 | PCCDE ---
03/16/24 11:10 -11:20 am Reached patient by phone after discharge (admitted 03/10 -03/12). [place] concern was regarding accuracy of carb count on menu. Various items discussed. Pt verbalizes accurate carb counting/exchanges. Ideas on cause of recent admission and methods avoid discussed. I will talk with Dietary. FJ
== END 2024-03-12 14:50 | disposition home or self-care (01) ==
LOC: ANHED 13:30 → ANH3MEDSUR 17:06 → ANHICU 17:55 → ANH3MED 03-11 14:38
PROVIDERS: Internal Medicine; Admitting Provider Internal Medicine; Emergency Provider Emergency Medicine; PCP Family Medicine; Visit Provider Family Medicine
DX: E86.0 Dehydration (principal); E10.10 Type 1 diabetes mellitus with ketoacidosis without coma; K31.84 Gastroparesis; Z79.4 Long term (current) use of insulin; Z96.41 Presence of insulin pump (external) (internal); F41.8 Other specified anxiety disorders; K21.9 Gastro-esophageal reflux disease without esophagitis; F17.210 Nicotine dependence, cigarettes, uncomplicated; E10.51 Type 1 diabetes mellitus with diabetic peripheral angiopathy without gangrene; I70.209 Unspecified atherosclerosis of native arteries of extremities, unspecified extremity; J44.9 Chronic obstructive pulmonary disease, unspecified; E10.319 Type 1 diabetes mellitus with unspecified diabetic retinopathy without macular edema; G62.9 Polyneuropathy, unspecified; M79.7 Fibromyalgia; D50.9 Iron deficiency anemia, unspecified; K58.9 Irritable bowel syndrome, unspecified; M47.816 Spondylosis without myelopathy or radiculopathy, lumbar region; F42.9 Obsessive-compulsive disorder, unspecified; E55.9 Vitamin D deficiency, unspecified; F19.10 Other psychoactive substance abuse, uncomplicated; E53.8 Deficiency of other specified B group vitamins
CPT/HCPCS: 36415; 36600; 71045; 80048; 80053; 80307; 81001; 82010; 82375; 82805; 82948; 83036; 83050; 83605; 83735; 84100; 84703; 85025; 87641; 93005; 96361; 96365; 96366; 96374; 96375; 96376; 99285; A9270; G0378; G0379; J0780; J1170; J1200; J1815; J2405; J2765; J3475; J3480; J7030

== ENCOUNTER 2024-06-05 14:49 | Emergency (ER) | payer OTHER, SELFPAY ==
--- NOTE | ~2024-06-05 | XR_ITS ---
EXAMINATION: XR foot RT min 3V DATE: 06/05/2024 15:28 INDICATION: Right great toe pain TECHNIQUE: Dorsoplantar, oblique and lateral views of the right foot were obtained. COMPARISON: None. FINDINGS: Alignment is normal. No fracture. Minimal osteoarthritis at the first metatarsophalangeal and a few t arsometatarsal and interphalangeal joints.. Soft tissues are unremarkable. Focal masslike soft tissue swelling at the medial aspect of the right great toe. No evident calcific matrix or underlying corti meme erosion or periosteal reaction. IMPRESSION: 1. 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 No acute osseous abnormality. 2. Nonspecific focal masslike soft tissue swelling at the medial aspect of the right great toe. No ev ident involvement of the underlying bone. Reviewed, dictated and finalized at location A. IMPRESSION: 1. 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 No acute osseous abnormality. 2. Nonspecific focal masslike soft tissue swelling at the medial aspect of the right great toe. No evident involvement of the underlying bone.
[2024-06-05 14:56] VITALS: BP 115/79; PULSE 88; RESP 16; TEMP 36.4; O2SAT 98
--- NOTE | 2024-06-05 14:58 | ED.EXTPRO ---
HPI - Extremity Problem General Chief complaint: Extremity Problem,Nontraumatic Stated complaint: R foot pain Time Seen by Provider: 06/05/24 16:43 31-year-old female history of type 1 diabetes since meds and agreed to pain. Patient states she will blister adjacent to a large callus on the medial side of her great toe. States the blister in for open expressed clear fluid noted patient states he is unable to ambulate due to the pain. She does have a ham stripper she has not followed up with regarding this issue denies fevers. Denies any known injury or trauma. Patient states her PCP started her on amoxicillin for a suspected soft tissue infection. Related Data Home Medications Medication Instructions Recorded Confirmed buspirone 30 mg tablet 30 mg PO BID 08/25/19 03/10/24 insulin lispro 100 unit/mL See Rx Instructions .Route .COMPLEX 06/23/20 03/10/24 subcutaneous solution (Admelog U-100 Insulin lispro) insulin glargine 100 unit/mL See Rx Instructions .Route .COMPLEX 01/03/21 03/10/24 subcutaneous solution (Lantus U-100 Insulin) fluvoxamine 100 mg tablet 150 mg PO BID 05/05/21 03/10/24 lorazepam 0.5 mg tablet 0.5 mg PO TID PRN Anxiety 02/07/23 03/10/24 quetiapine 400 mg tablet (Seroquel) 400 mg PO QHS 02/07/23 03/10/24 estradiol 2 mg tablet 2 mg PO DAILY 07/21/23 03/10/24 propranolol 10 mg tablet 10 mg PO Q12H 03/10/24 03/10/24 Allergies Allergy/AdvReac Type Severity Reaction Status Date / Time adhesive tape Allergy Mild Rash Verified 06/05/24 16:08 [facility] Past Medical History Medical History Achilles tendinitis, left leg Anemia Sees Dr. 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 History of foot surgery x5, L foot due to drop foot s/p diabetic coma History of tonsillectomy History of total hysterectomy Family History Family History Mother Family history of chronic obstructive pulmonary disease Atrial tachycardia Emphysema lung MAIC (mycobacterium avium-intracellulare complex) Father Acute myocardial infarction Grandparent Bone cancer Other Cerebrovascular accident Diabetes mellitus Family history of arthritis Family history of coronary artery disease Family history of malignant neoplasm Family history of malignant neoplasm of breast Social History Social History Social History: Surrogate medical decision maker: Frank Mann, . Code status: Full code. Smoking packs per day: 0.5 Smoking cigarettes per day: 10.0 Years smoked: 22 Smoking pack-years: 11.00 Smoking status: Current every day smoker Tobacco type: cigarettes Second hand tobacco smoke exposure: Yes Additional smoking assessment comments: Assessed for readiness to quit (Jun 2023), patient not ready. Alcohol intake: never Drinks per week: 0 Substance use: current Substance use type: marijuana Other substance usage details: Uses marijuana every day. Last use: DAILY Do You Feel Safe in your Home?: Yes Lack of Transportation: No Lack of Food: Never True Current Housing: I Have Housing Concerned About Future Housing: No [place]
--- NOTE | 2024-06-05 17:27 | ED.EXTPRO ---
HPI - Extremity Problem General Chief complaint: Extremity Problem,Nontraumatic Stated complaint: R foot pain Time Seen by Provider: 06/05/24 16:43 History of Present Illness HPI Narrative: 39 YEARS OLD WHITE FEMALE HISTORY OF DIABETES COMPLAINING OF PAIN AT THE RIGHT BEAK TO CALLUS STARTED FEW DAYS AGO POSSIBLE TRAUMA. STARTED ON ANTIBIOTIC YESTERDAY. WOULD LIKE TO HAVE PAIN MEDICATION. SCHEDULED SEE A PAPER GLUING OPERATOR NEXT WEEK. Related Data Home Medications Medication Instructions Recorded Confirmed buspirone 30 mg tablet 30 mg PO BID 08/25/19 03/10/24 insulin lispro 100 unit/mL See Rx Instructions .Route .COMPLEX 06/23/20 03/10/24 subcutaneous solution (Admelog U-100 Insulin lispro) insulin glargine 100 unit/mL See Rx Instructions .Route .COMPLEX 01/03/21 03/10/24 subcutaneous solution (Lantus U-100 Insulin) fluvoxamine 100 mg tablet 150 mg PO BID 05/05/21 03/10/24 lorazepam 0.5 mg tablet 0.5 mg PO TID PRN Anxiety 02/07/23 03/10/24 quetiapine 400 mg tablet (Seroquel) 400 mg PO QHS 02/07/23 03/10/24 estradiol 2 mg tablet 2 mg PO DAILY 07/21/23 03/10/24 propranolol 10 mg tablet 10 mg PO Q12H 03/10/24 03/10/24 Allergies Allergy/AdvReac Type Severity Reaction Status Date / Time adhesive tape Allergy Mild Rash Verified 06/05/24 16:08 Review of Systems Review of Systems: All systems reviewed & are unremarkable except as noted in HPI and below PMFSH Past Medical History Medical History Achilles tendinitis, left leg Anemia Sees Dr. 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 History of foot surgery x5, L foot due to drop foot s/p diabetic coma History of tonsillectomy History of total hysterectomy Family History Family History Mother Family history of chronic obstructive pulmonary disease Atrial tachycardia Emphysema lung MAIC (mycobacterium avium-intracellulare complex) Father Acute myocardial infarction Grandparent Bone cancer Other Cerebrovascular accident Diabetes mellitus Family history of arthritis Family history of coronary artery disease Family history of malignant neoplasm Family history of malignant neoplasm of breast Social History Social History Social History: Surrogate medical decision maker: Frank Mann, . Code status: Full code. Smoking packs per day: 0.5 Smoking cigarettes per day: 10.0 Years smoked: 22 Smoking pack-years: 11.00 Smoking status: Current every day smoker Tobacco type: cigarettes Second hand tobacco smoke exposure: Yes Additional smoking assessment comments: Assessed for readiness to quit (Jun 2023), patient not ready. Alcohol intake: never Drinks per week: 0 Substance use: current Substance use type: marijuana Other substance usage details: Uses marijuana every day. Last use: DAILY Do You Feel Safe in your Home?: Yes Lack of Transportation: No Lack of Food: Never True Current Housing: I Have Housing Concerned About Future Housing: No Difficulty Paying Gas/Electric Bills: No Difficulty Paying for Meds: No Currently Unemployed: No Education:
== END 2024-06-05 18:14 | disposition home or self-care (01) ==
PROVIDERS: Emergency Provider Emergency Medicine; PCP Family Medicine
DX: L84 Corns and callosities (principal); E10.51 Type 1 diabetes mellitus with diabetic peripheral angiopathy without gangrene; E10.42 Type 1 diabetes mellitus with diabetic polyneuropathy; I70.209 Unspecified atherosclerosis of native arteries of extremities, unspecified extremity; D64.9 Anemia, unspecified; K58.9 Irritable bowel syndrome, unspecified; M79.7 Fibromyalgia; M81.0 Age-related osteoporosis without current pathological fracture; F41.9 Anxiety disorder, unspecified; F42.9 Obsessive-compulsive disorder, unspecified; F32.A Depression, unspecified; F17.210 Nicotine dependence, cigarettes, uncomplicated; Z86.14 Personal history of Methicillin resistant Staphylococcus aureus infection; Z90.710 Acquired absence of both cervix and uterus; Z79.899 Other long term (current) drug therapy; Z79.4 Long term (current) use of insulin; M19.071 Primary osteoarthritis, right ankle and foot
CPT/HCPCS: 73630; 99283

== ENCOUNTER 2024-07-16 17:11 | Outpatient (CLI) | payer OTHER, SELFPAY ==
--- NOTE | ~2024-07-16 | XR_ITS ---
EXAMINATION: XR chest 2V Exam Date/Time: 07/16/2024 17:18 CDT HISTORY: R05 - Cough Comparison: 03/10/2024. RESULT: Lines, tubes, and devices: None. Lungs and pleura: Clear. Cardiomediastinal silhouette: Stable. Other: No acute osseous or upper abdominal finding. IMPRESSION: No acute cardiopulmonary process. Reviewed, dictated and finalized at location K.
== END 2024-07-16 17:12 | disposition home or self-care (01) ==
PROVIDERS: PCP Family Medicine; Visit Provider Nurse Practitioner Family
DX: R05.9 Cough, unspecified (principal)
CPT/HCPCS: 71046

== ENCOUNTER 2024-07-25 12:40 | Emergency (ER) | payer OTHER, SELFPAY ==
[2024-07-25 12:49] VITALS: BP 111/80; PULSE 84; RESP 16; TEMP 36.2; O2SAT 99
--- NOTE | 2024-07-25 12:52 | ED.URI ---
HPI - URI/Sore Throat General Chief Complaint: Nausea/Vomiting/Diarrhea Stated Complaint: diarrhea,cough,fever,not urinating,throwing up Time Seen by Provider: 07/25/24 12:53 Source: patient Mode of arrival: ambulatory Limitations: no limitations History of Present Illness HPI Narrative: 39-year-old female presents with complaint of cough for 2 weeks. Saw her primary care physician for cough and was given erythromycin, albuterol inhaler. Had an outpatient chest x-ray that was negative for pneumonia. Patient reports she is still coughing. States coughing is making her nauseous and gag. Is vomiting daily. Patient's blood sugar today is 121. Reports decreased urination. Concern for dehydration. no chest pain or shortness breath. Patient requesting work note today. patient requesting COVID and influenza testing. All systems reviewed and negative except as noted above. Related Data Home Medications Medication Instructions Recorded Confirmed buspirone 30 mg tablet 30 mg PO BID 08/25/19 07/16/24 insulin lispro 100 unit/mL See Rx Instructions .Route .COMPLEX 06/23/20 07/16/24 subcutaneous solution (Admelog U-100 Insulin lispro) insulin glargine 100 unit/mL See Rx Instructions .Route .COMPLEX 01/03/21 07/16/24 subcutaneous solution (Lantus U-100 Insulin) lorazepam 0.5 mg tablet 0.5 mg PO TID PRN Anxiety 02/07/23 07/16/24 quetiapine 400 mg tablet (Seroquel) 400 mg PO QHS 02/07/23 07/16/24 estradiol 2 mg tablet 2 mg PO DAILY 07/21/23 07/16/24 propranolol 10 mg tablet 10 mg PO Q12H 03/10/24 07/16/24 Prozac 20 mg PO DAILY 07/16/24 07/16/24 gabapentin 300 mg capsule 600 mg PO TID 07/16/24 07/16/24 lacosamide 50 mg tablet (Vimpat) 50 mg PO QID 07/16/24 07/16/24 levothyroxine 75 mcg tablet 75 mcg PO DAILY 07/16/24 07/16/24 meloxicam 15 mg tablet 15 mg PO DAILY 07/16/24 07/16/24 Allergies Allergy/AdvReac Type Severity Reaction Status Date / Time adhesive tape Allergy Mild Rash Verified 07/25/24 12:52 Review of Systems Review of Systems: CONSTITUTIONAL: Denies fever, chills, or sweats. reports fatigue. EYES: Denies visual changes, redness, or discharge. ENT: Reports rhinorrhea, congestion. Denies sore throat, or otalgia. CARDIOVASCULAR: Denies chest pain, palpitations, or edema. RESPIRATORY: Reports cough. Denies dyspnea. GASTROINTESTINAL: Denies abdominal pain. Reports nausea, vomiting. denies diarrhea. GENITOURINARY: Denies dysuria or hematuria. SKIN: Denies rash or itching. MUSCULOSKELETAL: Denies back pain, joint pain, or myalgia. NEUROLOGIC: Denies headache, numbness, or weakness. PSYCHIATRIC: Denies anxiety or depression. All other systems reviewed are negative, except as documented in HPI. [facility] Past Medical History Medical History (Updated 07/25/24 @ 13:24 by Margarita Kumar NP) Achilles tendinitis, left leg Anemia Sees Dr. 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 Diabetes type 1, uncontrolled Diagnosed at the age of 14 Diabetic ketoacidosis associated with type 1 diabetes mellitus Diabetic ketoacidosis, type I DKA (diabetic ketoacidosis) DKA (diabetic ketoacidosis) Fibromyalgia Gastroesophageal reflux disease IBS (irritable bowel syndrome) Left foot drop Low fecal elastase level MRSA (methicillin resistant staph aureus) culture positive OCD (obsessive compulsive disorder) Osteoporosis Peripheral neuropathy Retinopathy Substance abuse Marijuana use daily Tobacco abuse Surgical History Surgical History History of carpal tunnel release Right hand with ganglion cyst removal. History of foot surgery x5, L foot due to drop foot s/p diabetic coma History of tonsillectomy History of total hysterectomy Family History Family History Mother Family history of chronic obstructive pulmonary disease Atr
[2024-07-25 13:08] LABS: EDCOVIDSCREEN Negative (Negative); EDINFLUASCREEN Negative (Negative); EDINFLUBSCREEN Negative (Negative)
[2024-07-25 13:10] LABS: EDUAAPPEAR Clear; EDUABILI 2+ (Negative); EDUABLOOD Negative (Negative); EDUACOLOR1 Yellow; EDUAGLUCOSE Negative (Negative); EDUAKETONE 1+ (Negative); EDUALEUKO Negative (Negative); EDUANITRATE Negative (Negative); EDUAPH 5.5; EDUAPROTEIN 1+ (Negative)
== END 2024-07-25 13:30 | disposition home or self-care (01) ==
PROVIDERS: Emergency Provider Nurse Practitioner Family; PCP Family Medicine
DX: J40 Bronchitis, not specified as acute or chronic (principal); Z20.822 Contact with and (suspected) exposure to COVID-19; F17.210 Nicotine dependence, cigarettes, uncomplicated; F12.90 Cannabis use, unspecified, uncomplicated; E10.10 Type 1 diabetes mellitus with ketoacidosis without coma; E10.51 Type 1 diabetes mellitus with diabetic peripheral angiopathy without gangrene; E10.42 Type 1 diabetes mellitus with diabetic polyneuropathy; E10.319 Type 1 diabetes mellitus with unspecified diabetic retinopathy without macular edema; I70.209 Unspecified atherosclerosis of native arteries of extremities, unspecified extremity; Z79.4 Long term (current) use of insulin; M79.7 Fibromyalgia; K21.9 Gastro-esophageal reflux disease without esophagitis; M81.0 Age-related osteoporosis without current pathological fracture; Z86.14 Personal history of Methicillin resistant Staphylococcus aureus infection; F41.9 Anxiety disorder, unspecified; F32.A Depression, unspecified
CPT/HCPCS: 81003; 87426; 87804; 99213; G0463

== ENCOUNTER 2024-07-31 11:15 | Emergency (ER) | payer OTHER, SELFPAY ==
[2024-07-31] VITALS (8 sets, daily range): BP systolic 105–147; BP diastolic 78–91; PULSE 68–96; RESP 18–27; TEMP 36.5–36.7; O2SAT 98–100
--- NOTE | ~2024-07-31 | XR_ITS ---
EXAMINATION: XR chest 1V portable DATE: 07/31/2024 13:51 INDICATION: Weakness, cough and dyspnea TECHNIQUE: frontal view of the chest was obtained. COMPARISON: Chest radiograph dated at 630/24 FINDINGS: The lungs remain clear with no focal airspace opacities, pulmonary edema, pleural effusion or pneumot horax. The cardiomediastinal silhouette is normal. Visualized bones and soft tissues are unremarkable . IMPRESSION: 1. No acute cardiopulmonary disease. Reviewed, dictated and finalized at location A.
--- NOTE | 2024-07-31 11:30 | ECG_ITS ---
Test Date: 2024-07-31 11:38:32 Measurements Intervals [place] Rate: 83 P: 65 TX: 146 QRS: 29 QRSD: 88 T: 46 QT: 368 QTc: 435 Interpretive Statements SINUS RHYTHM No previous ECG available for comparison Electronically Signed On 07-31-2024 12:41:46 CDT by Warren Thompson M.D.
[2024-07-31 11:49] LABS: Basophils Absolute Auto 0.1 K/mm3 (0.0-0.1); Basophils Percent Auto 0.9 % (0.2-1.2); Eosinophils Absolute Auto 0.3 K/mm3 (0-0.3); Eosinophils Percent Auto 3.5 % (0-4.4); Hematocrit 38.8 % (37.0-47.0); Hemoglobin 13.1 g/dL (12.0-15.0); Immature Granulocyte Absolute 0.04 K/mm3 (0.00-0.031); Immature Granulocyte Percent A 0.5 % (0-0.5); Lymphocytes Absolute Auto 2.21 K/mm3 (0.9-3.2); Lymphocytes Percent Auto 25.8 % (18.3-44.2); Mean Corpuscular HGB Conc 33.8 g/dl (32-36); Mean Corpuscular Hemoglobin 30.6 pg (26-34); Mean Corpuscular Volume 90.7 fl (80-100); Mean Platelet Volume 10.2 fl (7.4-10.4); Monocytes Absolute Auto 0.4 K/mm3 (0.1-0.6); Monocytes Percent Auto 4.8 % (2.6-8.5); Neutrophils Absolute Auto 5.5 K/mm3 (1.3-6.7); Neutrophils Percent Auto 64.5 % (45.5-73.1); Platelet Count Result 389 k/mm3 (150-375); Red Blood Count 4.28 M/mm3 (4.2-5.4); Red Cell Distribution Width 12.5 % (11.5-14.5); White Blood Count 8.6 K/mm3 (4.5-10.0)
[2024-07-31 11:53] LABS: Add Urine Microscopic? NO; Appearance Urine Clear (Clear); Bilirubin Urine Negative (Negative); Blood Urine Negative (Negative); Color Urine Yellow (Yellow); Glucose Urine UA Negative (Negative); Ketones Urine Trace mg/dL (Negative); Leukocyte Esterase Ur Negative LEU/UL (Negative); Nitrate Urine Negative (Negative); Protein Urine Negative (Negative); pH Urine 5.5 (5.0-9.0)
--- NOTE | 2024-07-31 12:25 | ED.GENADULT ---
HPI - General Adult General Chief complaint: Weakness Stated complaint: n/v, need fluids Time Seen by Provider: 07/31/24 12:01 History of Present Illness HPI narrative: 39-year-old female presenting to the emergency department for evaluation for increased generalized weakness and fatigue. Patient was having the symptoms last week with cough and congestion and did present to an urgent care and was started on cough suppressant and prednisone. Patient states since that time her blood sugars which typically run in the 150 range have been in the 250 range. Patient called her primary care physician and was encouraged to present to the ED for further workup including a mono test per the patient. Related Data Home Medications Medication Instructions Recorded Confirmed buspirone 30 mg tablet 30 mg PO BID 08/25/19 07/31/24 insulin lispro 100 unit/mL See Rx Instructions .Route .COMPLEX 06/23/20 07/31/24 subcutaneous solution (Admelog U-100 Insulin lispro) insulin glargine 100 unit/mL See Rx Instructions .Route .COMPLEX 01/03/21 07/31/24 subcutaneous solution (Lantus U-100 Insulin) lorazepam 0.5 mg tablet 0.5 mg PO TID PRN Anxiety 02/07/23 07/31/24 quetiapine 400 mg tablet (Seroquel) 400 mg PO QHS 02/07/23 07/31/24 estradiol 2 mg tablet 2 mg PO DAILY 07/21/23 07/31/24 propranolol 10 mg tablet 10 mg PO Q12H 03/10/24 07/31/24 gabapentin 300 mg capsule 600 mg PO TID 07/16/24 07/31/24 lacosamide 50 mg tablet (Vimpat) 50 mg PO QID 07/16/24 07/31/24 levothyroxine 75 mcg tablet 75 mcg PO DAILY 07/16/24 07/31/24 meloxicam 15 mg tablet 15 mg PO DAILY 07/16/24 07/31/24 fluoxetine 20 mg capsule mg PO DAILY 07/31/24 07/31/24 Allergies Allergy/AdvReac Type Severity Reaction Status Date / Time adhesive tape Allergy Mild Rash Verified 07/31/24 08:38 Review of Systems Review of Systems: All systems reviewed & are unremarkable except as noted in HPI and below PMFSH Past Medical History Medical History Achilles tendinitis, left leg Anemia Sees Dr. 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 Diabetes type 1, uncontrolled Diagnosed at the age of 14 Diabetic ketoacidosis associated with type 1 diabetes mellitus Diabetic ketoacidosis, type I DKA (diabetic ketoacidosis) DKA (diabetic ketoacidosis) Fibromyalgia Gastroesophageal reflux disease IBS (irritable bowel syndrome) Left foot drop Low fecal elastase level MRSA (methicillin resistant staph aureus) culture positive OCD (obsessive compulsive disorder) Osteoporosis Peripheral neuropathy Retinopathy Substance abuse Marijuana use daily Tobacco abuse Surgical History Surgical History History of carpal tunnel release Right hand with ganglion cyst removal. History of foot surgery x5, L foot due to drop foot s/p diabetic coma History of tonsillectomy History of total hysterectomy Family History Family History Mother Family history of chronic obstructive pulmonary disease Atrial tachycardia Emphysema lung MAIC (mycobacterium avium-intracellulare complex) Father Acute myocardial infarction Grandparent Bone cancer Other Cerebrovascular accident Diabetes mellitus Family history of arthritis Family history of coronary artery disease Family history of malignant neoplasm Family history of malignant neoplasm of breast Social History Social History Social History: Surrogate medical decision maker: Frank Mann, . Code status: Full code. Smoking packs per day: 1 Smoking cigarettes per day: 20.0 Years smoked: 20 Smoking pack-years: 20.00 Smoking status: Current every day smoker Tobacco type: cigarettes Second hand tobacco smoke exposure: Yes Additional
[2024-07-31 12:40] LABS: Alanine Aminotransferase 13 U/L (6-35); Albumin Level 4.4 g/dL (3.5-5.1); Alkaline Phosphatase 154 U/L (38-126); Anion Gap 7 mmol/L (4-12); Aspartate Amino Transferase 25 U/L (14-36); Bilirubin,Total 0.8 mg/dL (0.2-1.3); Blood Urea Nitrogen 21 mg/dL (7-17); Calcium 10.3 mg/dL (8.4-10.2); Carbon Dioxide 29 mmol/L (22-30); Chloride 103 mmol/L (98-107); Estimated Glomerular Filt Rate > 60; Glucose 224 mg/dL (65-110); Potassium 4.4 mmol/L (3.4-5.0); Sodium 139 mmol/L (137-145)
[2024-07-31] MEDS: SODIUM CHLORIDE 0.9% IV 1,000 ML 999 ML IV CONT (12:52)
[2024-07-31 13:23] LABS: Beta-Hydroxybutyrate/Acetoacetate 0.41 mmol/L (0.02-0.27)
[2024-07-31 13:30] LABS: Monoscreen Negative (Negative); Negative Monotest Control Negative (Negative); Positive Monotest Control Positive (Positive)
== END 2024-07-31 14:52 | disposition home or self-care (01) ==
PROVIDERS: Family Medicine; Emergency Provider Emergency Medicine; PCP Family Medicine
DX: R53.1 Weakness (principal); F17.210 Nicotine dependence, cigarettes, uncomplicated; D64.9 Anemia, unspecified; F41.9 Anxiety disorder, unspecified; F32.A Depression, unspecified; E10.9 Type 1 diabetes mellitus without complications; K21.9 Gastro-esophageal reflux disease without esophagitis; M21.372 Foot drop, left foot; Z79.4 Long term (current) use of insulin
CPT/HCPCS: 36415; 71045; 80053; 81003; 82010; 85025; 86308; 93005; 96360; 99284; J7030

== ENCOUNTER 2024-08-02 00:59 | Day surgery (SDC) | payer OTHER, SELFPAY ==
[2024-07-16 16:00] VITALS: BMI 25.9
[2024-08-02 13:02] VITALS: BP 124/86; PULSE 84; RESP 20; TEMP 36.1; O2SAT 97; BMI 23.9
[2024-08-02] MEDS: LACTATED RINGERS 1,000 ML 150 ML IV CONT (13:41)
--- NOTE | 2024-08-02 13:46 | WPDANESEPPF ---
Anes - Initial Pre Proc Eval Procedure: Operation Date: 08/02/24 14:00 Proposed Procedures p Colonoscopy - Moy Hayes MD Date/Time: 08/02/24 13:46 Surgeon: Moy Hayes MD Pre Op Diagnosis: constipation, abd distension, fecal abn Patient Data Age: 39 Gender: F Height: 1.7 m Weight: 69.4 kg Last Vital Signs Temp 36.1 C L 08/02/24 13:02 Pulse 84 08/02/24 13:02 Resp 20 08/02/24 13:02 BP 124/86 08/02/24 13:02 Pulse Ox 97 08/02/24 13:02 O2 Del Method Room Air 08/02/24 13:02 Allergies Allergy/AdvReac Type Severity Reaction Status Date / Time adhesive tape Allergy Mild Rash Verified 08/02/24 12:56 Home Medications Medication Instructions Recorded Confirmed Type buspirone 30 mg tablet 30 mg PO BID 08/25/19 08/02/24 History insulin lispro 100 unit/mL See Rx Instructions .Route .COMPLEX 06/23/20 08/02/24 History subcutaneous solution (Admelog U-100 Insulin lispro) insulin glargine 100 unit/mL See Rx Instructions .Route .COMPLEX 01/03/21 08/02/24 History subcutaneous solution (Lantus U-100 Insulin) lorazepam 0.5 mg tablet 0.5 mg PO TID PRN Anxiety 02/07/23 08/02/24 History quetiapine 400 mg tablet (Seroquel) 400 mg PO QHS 02/07/23 08/02/24 History estradiol 2 mg tablet 2 mg PO DAILY 07/21/23 08/02/24 History propranolol 10 mg tablet 10 mg PO Q12H 03/10/24 08/02/24 History omeprazole 40 mg capsule,delayed 40 mg PO DAILY 1 month #30 caps 07/05/24 08/02/24 Rx release ondansetron 4 mg disintegrating 4 mg PO Q8H PRN nausea and 07/05/24 08/02/24 Rx tablet vomiting #20 tabs prucalopride 2 mg tablet 2 mg PO DAILY 1 month #30 tabs 07/06/24 08/02/24 Rx (Motegrity) albuterol sulfate 90 mcg/actuation 2 inh inhalation Q6H PRN shortness 07/16/24 08/02/24 Rx breath activated powder inhaler of breath or wheezing #1 ea (ProAir RespiClick) gabapentin 300 mg capsule 600 mg PO TID 07/16/24 08/02/24 History lacosamide 50 mg tablet (Vimpat) 50 mg PO QID 07/16/24 08/02/24 History levothyroxine 75 mcg tablet 75 mcg PO DAILY 07/16/24 08/02/24 History meloxicam 15 mg tablet 15 mg PO DAILY 07/16/24 08/02/24 History benzonatate 200 mg capsule 200 mg PO TID PRN cough #20 caps 07/20/24 08/02/24 Rx codeine 10 mg-guaifenesin 100 mg/5 5 ml PO Q6H PRN cough #120 mL 07/25/24 08/02/24 Rx mL oral liquid (Virtussin AC) fluoxetine 20 mg capsule 20 mg PO DAILY 07/31/24 08/02/24 History Patient hx anesthesia problems: none Family hx anesthesia problems: none Results Review: All pre-operative results and documents have been reviewed as part of the pre-operative evaluation. [facility] Past Medical History Medical History Achilles tendinitis, left leg Anemia Sees Dr. 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 Diabetes type 1, uncontrolled Diagnosed at the age of 14 Diabetic ketoacidosis associated with type 1 diabetes mellitus Diabetic ketoacidosis, type I DKA (diabetic ketoacidosis) DKA (diabetic ketoacidosis) Fibromyalgia Gastroesophageal reflux disease IBS (irritable bowel syndrome) Left foot drop Low fecal elastase level MRSA (methicillin resistant staph aureus) culture positive OCD (obsessive compulsive disorder) Osteoporosis Peripheral neuropathy Retinopathy Substance abuse Marijuana use daily Tobacco abuse Surgical History Surgical History History of carpal tunnel release Right hand with ganglion cyst removal. History of foot surgery x5, L foot due to drop foot s/p diabetic coma History of tonsillectomy History of total hysterectomy Family History Family History Mother Family history of chronic obstructive pulmonary disease Atrial tachycardia Emphysema lung MAIC (mycobacterium avium-intracellulare complex) Fat
--- NOTE | 2024-08-02 14:03 | WPDHPUPDATE1 ---
History and Physical Update Update Date/Time: 08/02/24 14:03 History and Physical has been reviewed, including an updated exam of the patient. There are NO changes in the patient's condition. Risks, benefits, and alternatives have been discussed and questions answered. Patient agrees to proceed with procedure.
[2024-08-02 14:24] VITALS: BP 116/79; PULSE 72; RESP 21; O2SAT 100
[2024-08-02 14:34] VITALS: BP 119/70; PULSE 71; RESP 23; O2SAT 100
--- NOTE | 2024-08-02 14:39 | SUR.PHASEII ---
pt blood sugar 133 per Dexcom reader.
[2024-08-02 14:44] VITALS: BP 138/89; PULSE 70; RESP 21; O2SAT 100
== END 2024-08-02 14:59 | disposition home or self-care (01) ==
PROVIDERS: PCP Family Medicine; Referring Provider Nurse Practitioner Family; Visit Provider Internal Medicine Gastroenterology
PROC: 0DJD8ZZ Inspection of Lower Intestinal Tract, Via Natural or Artificial Opening Endoscopic (ICD-10-PCS; CPT 45378; principal; 2024-08-02 14:00)
DX: R19.5 Other fecal abnormalities (principal); K31.84 Gastroparesis; D64.9 Anemia, unspecified; F41.9 Anxiety disorder, unspecified; F32.A Depression, unspecified; K21.9 Gastro-esophageal reflux disease without esophagitis; M81.0 Age-related osteoporosis without current pathological fracture; E10.10 Type 1 diabetes mellitus with ketoacidosis without coma; E10.51 Type 1 diabetes mellitus with diabetic peripheral angiopathy without gangrene; I70.209 Unspecified atherosclerosis of native arteries of extremities, unspecified extremity; G62.9 Polyneuropathy, unspecified; K58.9 Irritable bowel syndrome, unspecified; F42.9 Obsessive-compulsive disorder, unspecified; F17.210 Nicotine dependence, cigarettes, uncomplicated; F12.90 Cannabis use, unspecified, uncomplicated; Z79.4 Long term (current) use of insulin; Z79.51 Long term (current) use of inhaled steroids; Z98.890 Other specified postprocedural states; Z80.8 Family history of malignant neoplasm of other organs or systems; Z80.3 Family history of malignant neoplasm of breast; Z82.49 Family history of ischemic heart disease and other diseases of the circulatory system
CPT/HCPCS: 45378; J2003; J2704; J7120

== ENCOUNTER 2024-09-12 13:53 | Outpatient (CLI) | payer OTHER, SELFPAY ==
--- NOTE | ~2024-09-12 | XR_ITS ---
XR chest 2V 09/12/2024 14:08 Indication: Wheezing Procedure: Two-view chest Comparison: Comparison to multiple prior studies sequentially, with oldest reviewed study dated 04/2023. Findings: Subtle patchy bibasilar airspace disease, compatible with pneumonia. No pleural effusion. H eart size normal. No pneumothorax. No acute osseous abnormality. Impression: 1: Subtle bibasilar airspace disease, consistent with pneumonia. Reviewed, dictated and finalized at location B. [employer] Impression: 1: Subtle bibasilar airspace disease, consistent with pneumonia.
== END 2024-09-12 13:54 | disposition home or self-care (01) ==
LOC: ANHIMG 13:57
PROVIDERS: PCP Family Medicine; Visit Provider Nurse Practitioner Adult Health
DX: R91.8 Other nonspecific abnormal finding of lung field (principal)
CPT/HCPCS: 71046

== ENCOUNTER 2024-10-04 10:38 | Outpatient (CLI) | payer OTHER, SELFPAY ==
--- NOTE | ~2024-10-04 | XR_ITS ---
EXAMINATION: XR chest 2V 10/04/2024 10:51 INDICATION: Pneumonia. Cough. PROCEDURE: 2 view chest COMPARISON: Comparison to multiple prior studies sequentially, with oldest reviewed study dated 03/10. FINDINGS: The lungs are clear. The cardiomediastinal silhouette is within normal limits. There are no pleural effusions. There is no pneumothorax suspected. IMPRESSION: 1: NO ACUTE CARDIOPULMONARY DISEASE. Reviewed, dictated and finalized at location B. INSERTER
== END 2024-10-04 10:39 | disposition home or self-care (01) ==
LOC: ANHIMG 10:39
PROVIDERS: PCP Nurse Practitioner Adult Health; Visit Provider Nurse Practitioner Adult Health
DX: J18.9 Pneumonia, unspecified organism (principal)
CPT/HCPCS: 71046

== ENCOUNTER 2025-09-25 09:09 | Emergency (ER) | payer OTHER, SELFPAY ==
[2025-09-25 09:12] VITALS: BP 119/80; PULSE 93; RESP 16; TEMP 36.5; O2SAT 100
== END 2025-09-25 11:02 | disposition left against medical advice (07) ==
LOC: ANHED 10:56
PROVIDERS: PCP Family Medicine
DX: Z53.21 Procedure and treatment not carried out due to patient leaving prior to being seen by health care provider (principal)
CPT/HCPCS: 99199